=== PATIENT | female | born 1960 | race Caucasian/White ===

== ENCOUNTER 2017-10-14 21:00 | Emergency (ER) | payer MEDICAID ==
[2015-09-11 09:32] VITALS: Ht 170.2 cm; Wt 118.4 kg
[~2017-10-14] VITALS: Ht 170.2 cm; Wt 118.4 kg
[~2017-10-14 21:00] MED LIST: AMOX-559 PO; ASPI-719 PO; AZIT-1 PO; BETA15CR36 TP; BIS5 PO; BLOO-1318 MC; BLOO-1623 MC; BLOO1STR16 MC; CEPH500C24 PO; CETI-169 PO; CIP500 PO; CIPHCO RIGHT EAR; CIPR-214 PO; CITA-156 PO; CPAP; CYCL10TA29 PO; DAR100 PO; DOC100 PO; DOCU-202 PO; ESC10 PO; ESCI10TA8 PO; ESCI20TA8 PO; ESCI5TAB10 PO; FEN145 FT; FEN145 PO; FIO PO; FLU IM; FLU150 PO; FLU45SYR17 IM; FLU45SYR25 IM ONLY; FLU60SYR30 IM ONLY; FLUT50DI3 IH; FUR40 PO; FURO-1 PO; FURO-47 PO; HCTZ; HYDR-4309 PO; IBU800 PO; LANC-636 MC; LEVO50TA86 PO; LOPE1TAB55 PO; LOR5/325 PO; MECL25TA9 PO; METF-410 PO; METH4TAB66 PO; METR70GE2 PV; MULT-820 PO; NEOM28.45 TP; NITR-105 PO; OMEG-11 PO; OMEP-218 PO; ONDA4TAB PO; ONDA4TAB97 PO; OXYC-373 PO; OXYC1TAB54 PO; OXYGENHOME INH; POTA-24 PO; POTA20TA94 PO; POTT20 PO; PRED20TA6 PO; PROP40TA45 PO; SIM20 PO; SIMV-42 PO; SIMV-49 PO; SUMA100T32 PO; SUMA100T33 PO; SUMA25TA26 PO; SUMA25TA27 PO; SUMA50TA PO; TOP100 PO; TRA50 PO; TRAM-627 PO; TRAZ-133 PO; TRAZ-163 PO; TRAZ150T8 PO; TRAZ50 PO; VENL-10 PO; VENL150C61 PO; WAR1 PO; WAR5 PO; WAR75 PO; WARF-18 PO; WARF1TAB63 PO; WARF4TAB54 PO; ZOLP-350 PO; ZOST19404 SQ; [UNRECOGNIZED DRUG - CODE] MC; [UNRECOGNIZED DRUG - CODE] PO; [UNRECOGNIZED DRUG - CODE] PO; [UNRECOGNIZED DRUG - CODE] PO
--- NOTE | 2017-10-14 21:06 | ER Report ---
History and Physical Time Seen By MD: 21:06 HPI/ROS CHIEF COMPLAINT: Persistent cough HISTORY OF PRESENT ILLNESS: 57-year-old female presents ambulatory to the ER with a severe persistent coughing, coughing fits for one week after an illness. She notes the cough is nonproductive. She has no color change or fever. Patient denies history of acid reflux, or asthma. Patient notes a mild shortness of breath. Patient notes some sharp chest pain aggravated by deep inspiration. She's had no hemoptysis. Patient is a type II diabetic. Her sugars have been good. REVIEW OF SYSTEMS: Respiratory: As above Cardiovascular: No chest pain, no palpitations. Gastrointestinal: No vomiting, no abdominal pain. Musculoskeletal: No back pain. Allergies: Coded Allergies: erythromycin base (Verified Allergy, Mild, HIVES, 10/14/17) Erythromycin Ophthalmic Oint latex (Verified Allergy, Mild, 10/14/17) codeine (Verified Adverse Reaction, Mild, CAUSES CHEST PAIN, 10/14/17) Home Meds Active Scripts Benzonatate 100 Mg Cap (TESSALON PERLE 100 MG CAP) 100 Mg Capsule, 100 MG PO TID Y for cough suppression, #20 CAP Prov:RAO ESPINO DO 10/14/17 Metformin Hcl (METFORMIN HCL) 500 Mg Tablet, 1 TAB PO BID, #60 TAB 5 Refills Prov:MICHAEL WELLINGTON PHARMDane 09/24/17 Warfarin Sodium (WARFARIN SODIUM) 5 Mg Tablet, 1 TAB PO QDAY, #30 TAB 5 Refills Take one tablet daily or as instructed based on INR Prov:IRIS LUONG MD 09/20/17 Trazodone Hcl (TRAZODONE HCL) 100 Mg Tablet, 2 TAB PO QHS, #60 TAB 5 Refills Prov:IRIS LUONG MD 08/23/17 Potassium Chloride (POTASSIUM CHLORIDE) 20 Meq Tab.er.prt, 1 TAB PO BID, #60 TAB 5 Refills Prov:AMBREEN PRASAD APRN WEB MARKETING COORDINATOR-C 07/18/17 Escitalopram Oxalate (LEXAPRO) 10 Mg Tab, 3 TAB PO QDAY, #90 TAB 5 Refills Prov:IRIS LUONG MD 06/21/17 Lancets (LANCETS ULTRA THIN) 1 Each Each, EACH MC Q30D, #100 12 Refills Prov:IRIS LUONG MD 05/11/17 Blood-Glucose Meter (BLOOD-GLUCOSE METER) 1 Each Kit, KIT MC ONCE, #1 One touch Ultra Prov:IRIS LUONG MD 05/11/17 Blood Sugar Diagnostic (ONE TOUCH ULTRA TEST STRIPS) 1 Each Strip, 50 EACH MC Q30D, #100 STRIP 12 Refills use to test BS twice daily Prov:IRIS LUONG MD 05/11/17 Simvastatin (SIMVASTATIN) 20 Mg Tablet, 1 TAB PO HS, #30 TAB 12 Refills Prov:IRIS LUONG MD 04/28/17 Sumatriptan Succinate (SUMATRIPTAN SUCCINATE) 100 Mg Tablet, 50-100 MG PO ONCE Y for MIGRAINE, #6 TAB 11 Refills Prov:IRIS LUONG MD 11/11/16 Furosemide (FUROSEMIDE) 40 Mg Tablet, 1 TAB PO DAILY, #30 TAB 11 Refills Prov:IRIS LUNOG MD 11/01/16 Reported Medications Guaifenesin/Dextromethorphan (DIABETIC TUSSIN DM LIQUID) 118 Ml Liquid, 118 ML PO 10/14/17 Cpap (CPAP HOME) Inha, HS 9 cm H2O pressure, with oxygen 3 liters 01/07/16 Oxygen (OXYGEN) Inha, 3 L INH HS with C-PAP 01/07/16 Discontinued Scripts Cetirizine Hcl (CETIRIZINE HCL) 10 Mg Tablet, 1 TAB PO QDAY, #15 TAB 0 Refills Prov:IRIS LUONG MD 12/21/16 Meclizine Hcl (MECLIZINE HCL) 25 Mg Tablet, 1 TAB PO BID Y for dizziness, #30 TAB 5 Refills Prov:IRIS LUONG MD 08/03/16 Omeprazole Magnesium (PRILOSEC OTC) 20 Mg Tablet.dr, 1 TAB PO QDAY, #30 TAB 11 Refills Prov:IRIS LUONG MD 07/28/16 Past Medical/Surgical History Past Medical History Cardiovascular: Reports hx of: DVT edema hyperlipidemia (mixed) hypertension Respiratory: Reports hx of: sleep apnea (obstructive) Gastrointestinal: Reports hx of: constipation, chronic hiatal hernia Psychiatric: Reports hx of: depression Endocrine: Reports hx of: obesity Past Surgical History Gastrointestinal: Reports hx of: cholecystectomy (1980) Gynecologic: Reports hx of: delivery (1980) hysterectomy (2000) Reviewed Nurses Notes: Yes Old Medical Records Reviewed: Yes Hx Smoking: No Smoking Status: Never Smoker Exposure to Second Hand Smoke?: Yes Hx Substance Use Disorder: No Hx Alcohol Use: No Constitutional Physical Exam General Appearance: The patient is alert, has no immediate need for airway protection and no current signs of toxicity. Vital signs stable, afebrile, pulse ox normal HEENT: Pupils equal and round no injection. TMs normal, oropharynx with moderate erythema, no exudate, os nasal drip noted Respiratory: Chest is non tender, lungs are clear to auscultation. Faint expiratory wheezing, no rails Cardiac: regular rate and rhythm Gastrointestinal: Abdomen is soft and non tender, no masses, bowel sounds normal. Musculoskeletal: Neck: Neck is supple and non tender. No lymphadenopathy, no JVD Extremities have full range of motion and are non tender. No edema, no calf tenderness Skin: No rashes or lesions. DIFFERENTIAL DIAGNOSIS: After history and physical exam differential diagnosis was considered for shortness of breath including but not limited to pulmonary infectious process, COPD, asthma, pulmonary embolus and congestive heart failure. Medical Decision Making Data Points Laboratory Hematology Test 10/14/17 03:44 10/14/17 21:52 Urine Color Yellow Urine Clarity Slightly-cloudy Urine pH 5.0 pH (4.8-9.5) Urine Specific [place] S3 Urine Protein Negative mg/dL (NEGATIVE) Urine Glucose (UA) Negative mg/dL (NEGATIVE) Urine Ketones Negative mg/dL (NEGATIVE) Urine Blood Negative (NEGATIVE) Urine Nitrite Negative (NEGATIVE) Urine Bilirubin Negative (NEGATIVE) Urine Urobilinogen 2.0 mg/dL (0.2-1.9) Urine Leukocyte Esterase Trace (NEGATIVE) Urine RBC None /HPF (0-2/HPF) Urine WBC 1 /HPF (0-5/HPF) Urine Squamous Epithelial Cells Many /LPF (</=FEW) Urine Bacteria Few /HPF (NONE-FEW) Urine Mucus None /HPF (NONE-FEW) Red Blood Count 4.82 M/uL (4.17-5.56) Mean Corpuscular Volume 89.8 fL (80.0-96.0) Mean Corpuscular Hemoglobin 30.5 pg (26.0-33.0) Mean Corpuscular Hemoglobin Concent 34.0 g/dL (32.0-36.0) Red Cell Distribution Width 14.7 % (11.5-14.5) Mean Platelet Volume 8.2 fL (7.2-11.1) Neutrophils (%) (Auto) 40.8 % (39.4-72.5) Lymphocytes (%) (Auto) 44.7 % (17.6-49.6) Monocytes (%) (Auto) 10.9 % (4.1-12.4) Eosinophils (%) (Auto) 3.2 % (0.4-6.7) Basophils (%) (Auto) 0.4 % (0.3-1.4) Nucleated RBC Relative Count (auto) 0.0 /100WBC Neutrophils # (Auto) 3.0 K/uL (2.0-7.4) Lymphocytes # (Auto) 3.2 K/uL (1.3-3.6) Monocytes # (Auto) 0.8 K/uL (0.3-1.0) Eosinophils # (Auto) 0.2 K/uL (0.0-0.5) Basophils # (Auto) 0.0 K/uL (0.0-0.1) Nucleated RBC Absolute Count (auto) 0.00 K/uL D-Dimer Quantitative (PE/DVT) 1.70 ug/ml (0-0.50) Sodium Level 138 mmol/L (137-145) Potassium Level 3.3 mmol/L (3.5-5.0) Chloride Level 103 mmol/L (98-107) Carbon Dioxide Level 27 mmol/L (22-31) Blood Urea Nitrogen 17 mg/dl (7-18) Creatinine 0.80 mg/dl (0.52-1.04) Glomerular Filtration Rate Calc > 60.0 Random Glucose 132 mg/dl (75-110) Calcium Level 9.2 mg/dl (8.4-10.2) Total Bilirubin 0.4 mg/dl (0.2-1.3) Aspartate Amino Transf (AST/SGOT) 20 U/L (0-35) Alanine Aminotransferase (ALT/SGPT) 27 U/L (0-56) Alkaline Phosphatase 70 U/L (0-126) Troponin I < 0.012 ng/ml B-Type Natriuretic Peptide 8 pg/ml (0-100) Total Protein 6.9 gm/dl (6.3-8.2) Albumin 3.6 g/dl (3.5-5.0) Chemistry Test 10/14/17 03:44 10/14/17 21:52 Urine Color Yellow Urine Clarity Slightly-cloudy Urine pH 5.0 pH (4.8-9.5) Urine Specific [place] S3 Urine Protein Negative mg/dL (NEGATIVE) Urine Glucose (UA) Negative mg/dL (NEGATIVE) Urine Ketones Negative mg/dL (NEGATIVE) Urine Blood Negative (NEGATIVE) Urine Nitrite Negative (NEGATIVE) Urine Bilirubin Negative (NEGATIVE) Urine Urobilinogen 2.0 mg/dL (0.2-1.9) Urine Leukocyte Esterase Trace (NEGATIVE) Urine RBC None /HPF (0-2/HPF) Urine WBC 1 /HPF (0-5/HPF) Urine Squamous Epithelial Cells Many /LPF (</=FEW) Urine Bacteria Few /HPF (NONE-FEW) Urine Mucus None /HPF (NONE-FEW) White Blood Count 7.2 k/uL (4.5-11.0) Red Blood Count 4.82 M/uL (4.17-5.56) Hemoglobin 14.7 g/dL (12.0-16.0) Hematocrit 43.3 % (34.0-47.0) Mean Corpuscular Volume 89.8 fL (80.0-96.0) Mean Corpuscular Hemoglobin 30.5 pg (26.0-33.0) Mean Corpuscular Hemoglobin Concent 34.0 g/dL (32.0-36.0) Red Cell Distribution Width 14.7 % (11.5-14.5) Platelet Count 185 K/uL (150-450) Mean Platelet Volume 8.2 fL (7.2-11.1) Neutrophils (%) (Auto) 40.8 % (39.4-72.5) Lymphocytes (%) (Auto) 44.7 % (17.6-49.6) Monocytes (%) (Auto) 10.9 % (4.1-12.4) Eosinophils (%) (Auto) 3.2 % (0.4-6.7) Basophils (%) (Auto) 0.4 % (0.3-1.4) Nucleated RBC Relative Count (auto) 0.0 /100WBC Neutrophils # (Auto) 3.0 K/uL (2.0-7.4) Lymphocytes # (Auto) 3.2 K/uL (1.3-3.6) Monocytes # (Auto) 0.8 K/uL (0.3-1.0) Eosinophils # (Auto) 0.2 K/uL (0.0-0.5) Basophils # (Auto) 0.0 K/uL (0.0-0.1) Nucleated RBC Absolute Count (auto) 0.00 K/uL D-Dimer Quantitative (PE/DVT) 1.70 ug/ml (0-0.50) Glomerular Filtration Rate Calc > 60.0 Calcium Level 9.2 mg/dl (8.4-10.2) Total Bilirubin 0.4 mg/dl (0.2-1.3) Aspartate Amino Transf (AST/SGOT) 20 U/L (0-35) Alanine Aminotransferase (ALT/SGPT) 27 U/L (0-56) Alkaline Phosphatase 70 U/L (0-126) Troponin I < 0.012 ng/ml B-Type Natriuretic Peptide 8 pg/ml (0-100) Total Protein 6.9 gm/dl (6.3-8.2) Albumin 3.6 g/dl (3.5-5.0) Coagulation Test 10/14/17 21:52 D-Dimer Quantitative (PE/DVT) 1.70 ug/ml Urinalysis Test 10/14/17 03:44 Urine Color Yellow Urine Clarity Slightly-cloudy Urine pH 5.0 pH (4.8-9.5) Urine Specific [place] S3 Urine Protein Negative mg/dL (NEGATIVE) Urine Glucose (UA) Negative mg/dL (NEGATIVE) Urine Ketones Negative mg/dL (NEGATIVE) Urine Blood Negative (NEGATIVE) Urine Nitrite Negative (NEGATIVE) Urine Bilirubin Negative (NEGATIVE) Urine Urobilinogen 2.0 mg/dL (0.2-1.9) Urine Leukocyte Esterase Trace (NEGATIVE) Urine RBC None /HPF (0-2/HPF) Urine WBC 1 /HPF (0-5/HPF) Urine Squamous Epithelial Cells Many /LPF (</=FEW) Urine Bacteria Few /HPF (NONE-FEW) Urine Mucus None /HPF (NONE-FEW) EKG/Imaging EKG Interpretation 12 lead EK Rhythm: normal sinus rhythm [place]: normal QRS: normal ST segments:, Nonspecific ST and T-wave changes, comparison to previous EKG dated 12/27/15. There is shortening improvement of the QT interval. Otherwise, there is no significant change in morphology Imaging X-ray: Two-view chest x-ray was obtained. I viewed the images myself on the PACS system. My interpretation of the images is: No infiltrate, no effusion, normal mediastinum. The radiologist interpretation had no clinically significant variation from this interpretation. Results: CT scan of the CTA pulmonary angiogram was obtained. The results of the study are CTA CHEST WW/O CNTR (PULM ANG) HISTORY: Cough. Hypoxia. Elevated d-dimer. COMPARISON: Chest x-ray earlier same day. No prior chest CT. TECHNIQUE: Pulmonary embolus protocol - Thin-slice axial imaging of the chest was performed during maximal pulmonary arterial opacification with intravenous nonionic iodinated contrast. 3D coronal slab MIPs and 2D reconstructions in the coronal and sagittal planes were performed to aid in pulmonary embolus detection. E Business Project Manager images have been stored on PACS. One of the following dose optimization techniques was utilized in the performance of this exam: Automated exposure control; adjustment of the mA and/ or kV according to the patient's size; or use of an iterative reconstruction technique. Specific details can be referenced in the facility's radiology CT exam operational policy. CONTRAST: 100 mL of IV Isovue-370. FINDINGS: Pulmonary arteries: There is adequate opacification of the pulmonary arteries to the segmental branches. There are no filling defects in the visible pulmonary arteries. Pulmonary arteries are enlarged. Thoracic inlet: Normal. Aorta: No aneurysm or dissection. There is no atherosclerosis of the aorta. Heart / Pericardium: The heart is normal. There is no ventricular septal deviation. There is no pericardial effusion. There is no coronary artery calcification. Mediastinum / Dawna: Normal mediastinum. No lymphadenopathy. Lungs / Pleura: No pneumothorax. No pleural effusion. The airways are normal. There is mild atelectasis. There is mild respiratory motion artifact. There are small pneumatoceles or bullae in the lower lobes laterally. Upper abdomen: Cholecystectomy. Musculoskeletal/vertebra/body wall: There is severe degenerative disc disease at C6-7. There is mild degenerative disc disease of the thoracic spine. Vertebral body heights are maintained. There is a mild levoscoliosis of the upper thoracic spine and there is a dextroscoliosis of the mid to lower thoracic spine, mild in severity. IMPRESSION: 1. No acute or chronic pulmonary embolism. 2. Mild atelectasis. 3. Degenerative changes of the spine. The study was read by the radiologist. I viewed the images myself on the PACS system. ED Course/Re-evaluation Clinical Indication for ER IV: IV Access ED Course She was admitted to an examination room. H&P was done. The differential diagnoses was considered. Patient isn't sick with a viral URI. Now she has persistent coughing, coughing fits. Had some chest pain and shortness of breath. She has no history of airway disease. She does have sleep apnea. She' s had previous DVT. She is on warfarin. Her INR was last checked approximately 2 weeks ago at 2.1. Patient's had some chest pain.Her chest x- ray is clear. Her EKG is unremarkable. Diagnostic studies show an elevated d- dimer. Patient has lack of findings. She has a chronic cough. Postnasal drip is a likely etiology. Patient has no airway spasm but responded well to nebulizer treatment. She received Solu-Medrol 125 mg IV I spoke with the patient regarding different treatments for chronic cough. I suspect primary causes postnasal drip from her viral URI. Nothing she suffering acid reflux. Do not think there is airway disease, but we will discharge her with an inhaler Decision to Disposition Date: Oct 14, 2017 Decision to Disposition Time: 23:51 Depart Departure Latest Vital Signs Impression: Primary Impression: Persistent cough Additional Impressions: Viral URI with cough Essential hypertension Condition: Improved Disposition: HOME OR SELF-CARE Referrals: IRIS LUONG MD (PCP) New Scripts Benzonatate 100 Mg Cap (TESSALON PERLE 100 MG CAP) 100 Mg Capsule 100 MG PO TID Y for cough suppression, #20 CAP Prov: RAO ESPINO DO 10/14/17 Patient Instructions: Acute Cough (ED), Upper Respiratory Infection (ED) Additional Instructions: Take Benadryl or Zyrtec 10 mg or Claritin 10 mg to dry up your postnasal drip Follow-up with your primary care if unimproved in 3-5 days Problem Qualifiers RAO ESPINO DO Oct 14, 2017 21:06
[2017-10-14] MEDS ORDERED: [UNRECOGNIZED DRUG - CODE] PO (21:09)
[2017-10-14] MEDS ORDERED: ALBUTEROL/IPRATROPIUM 3 ML NEB NEB ONE (21:15)
[2017-10-14] MEDS ORDERED: methylPREDNIS SUCC 125 MG/2ML IVP ONE (21:15)
[2017-10-14 21:58] LABS: PLATELET COUNT, AUTOMATED 185 K/uL (150-450)
--- NOTE | 2017-10-14 22:28 | RADIOLOGY IMAGING REPORT ---
FACILITY: [facility] [place] PATIENT NAME: Ana Lion : 1960 MR: [id number] V: [id number] EXAM DATE: ORDERING PHYSICIAN: RAO ESPINO TECHNOLOGIST: Location: [facility] Patient: Ana Lion : 1960 Visit/Account:[id number] Date of Sevice: 10/14/2017 EXAMINATION: PA and Lateral Chest 10/14/2017 9:14 PM HISTORY: RESP DISTRESS COMPARISON: Chest x-ray with rib series 02/25/2016, chest x-ray 12/31/2015 FINDINGS: Cardiomediastinal contours: Normal Lungs and pleura: Bronchitic and interstitial markings are slightly prominent but unchanged. No acute infiltrate or consolidation. Pleural spaces are clear. Bones/soft tissues: Stable scoliotic spinal curvature. Right upper quadrant cholecystectomy clips. IMPRESSION: No acute cardiopulmonary abnormality. I am having the [facility]'s call the absence of acute findings to RAO ESPINO for me at 10/14/2017 10:24 PM Report Dictated By: Marlon Solo MD at 10/14/2017 10:21 PM Report E-Signed By: Marlon Solo MD at 10/14/2017 10:25 PM WSN:[id number]
--- NOTE | 2017-10-14 23:08 | EKG ---
FACILITY: [facility] PATIENT NAME: MIRYAM EASON : [id number] MR: [id number] V: [id number] EXAM DATE: ORDERING PHYSICIAN: RAO ESPINO TECHNOLOGIST: TELLO Test Reason : DYSPNEA Blood Pressure : / mmHG Vent. Rate : 064 BPM Atrial Rate : 064 BPM P-R Int : 152 ms QRS Dur : 084 ms QT Int : 450 ms P-R-T Axes : 047 079 -84 degrees QTc Int : 464 ms Normal sinus rhythm ST depression, consider subendocardial injury Prolonged QT Abnormal ECG When compared with ECG of 24-DEC-2015 23:39, ST now depressed in Anterior leads Nonspecific T wave abnormality, worse in Anterolateral leads Confirmed by ASHLEY ROGEL ([id number]) on 10/15/2017 6:33:09 AM Referred By: Confirmed By:ASHLEY ROGEL
--- NOTE | 2017-10-14 23:44 | RADIOLOGY IMAGING REPORT ---
FACILITY: PATIENT NAME: Ana Lion : 1960 MR: [id number] V: [id number] EXAM DATE: ORDERING PHYSICIAN: RAO ESPINO TECHNOLOGIST: Location: [facility] [place] Patient: Ana Lion : 1960 Visit/Account:[id number] Date of Sevice: 10/14/2017 CTA CHEST WW/O CNTR (PULM ANG) HISTORY: Cough. Hypoxia. Elevated d-dimer. COMPARISON: Chest x-ray earlier same day. No prior chest CT. TECHNIQUE: Pulmonary embolus protocol - Thin-slice axial imaging of the chest was performed during ma ximal pulmonary arterial opacification with intravenous nonionic iodinated contrast. 3D coronal slab MIPs and 2D reconstructions in the coronal and sagittal planes were performed to aid in pulmonary emb olus detection. Ground Service Equipment Mechanic images have been stored on PACS. One of the following dose optimization techniques was utilized in the performance of this exam: Autom ated exposure control; adjustment of the mA and/or kV according to the patient's size; or use of an i terative reconstruction technique. Specific details can be referenced in the facility's radiology CT exam operational policy. CONTRAST: 100 mL of IV Isovue-370. FINDINGS: Pulmonary arteries: There is adequate opacification of the pulmonary arteries to the segmental branch es. There are no filling defects in the visible pulmonary arteries. Pulmonary arteries are enlarged. Thoracic inlet: Normal. Aorta: No aneurysm or dissection. There is no atherosclerosis of the aorta. Heart / Pericardium: The heart is normal. There is no ventricular septal deviation. There is no peric ardial effusion. There is no coronary artery calcification. Mediastinum / Dawna: Normal mediastinum. No lymphadenopathy. Lungs / Pleura: No pneumothorax. No pleural effusion. The airways are normal. There is mild atelectas is. There is mild respiratory motion artifact. There are small pneumatoceles or bullae in the lower l obes laterally. Upper abdomen: Cholecystectomy. Musculoskeletal/vertebra/body wall: There is severe degenerative disc disease at C6-7. There is mild degenerative disc disease of the thoracic spine. Vertebral body heights are maintained. There is a mi ld levoscoliosis of the upper thoracic spine and there is a dextroscoliosis of the mid to lower thora cic spine, mild in severity. IMPRESSION: 1. No acute or chronic pulmonary embolism. 2. Mild atelectasis. 3. Degenerative changes of the spine. Report Dictated By: Lidia Moore at 10/14/2017 11:30 PM Report E-Signed By: Lidia Moore at 10/14/2017 11:41 PM WSN:[id number]
[2017-10-14] MEDS ORDERED: BENZ100C4 PO (23:53)
[2017-10-14] MEDS ORDERED: ALBUTEROL SULFATE 90 MCG/ACT 8.5 GM HNH INH PRN (23:55)
[2017-10-15 00:07] VITALS: BP 138/88
== END 2017-10-15 00:11 | disposition home or self-care (01) ==
LOC: ER 21:07
DX: J06.9 Acute upper respiratory infection, unspecified (principal); I10 Essential (primary) hypertension
CPT/HCPCS: 71046; 71275; 81001; 83880; 84484; 85025; 85379; 93005; 94640; 96374; 99284; J2930; J7050; J7620; Q9967; 82040; 82247; 82310; 82374; 82435; 82565; 82947; 84075; 84132; 84155; 84295; 84450; 84460; 84520

== ENCOUNTER → 2017-12-21 | Outpatient (CLI) | payer MEDICAID ==
[2015-09-11 09:32] VITALS: BMI 42.1
[~2017-12-21] MED LIST changes: +BENZ100C26 PO; +BENZ100C4 PO; +METF10002 PO; -WARF-18 PO; +WARF1TAB15 PO; -WARF1TAB63 PO; +WARF5TAB23 PO; +[UNRECOGNIZED DRUG - CODE] PO
[2017-12-21 08:45] LABS: LDL CHOLESTEROL 38 mg/dl
== END ==
LOC: LAB 07:44
PROVIDERS: ATTEND Internal Medicine
DX: E11.9 Type 2 diabetes mellitus without complications (principal); I10 Essential (primary) hypertension; E78.2 Mixed hyperlipidemia
CPT/HCPCS: 36415; 82040; 82247; 82310; 82374; 82435; 82465; 82565; 82947; 83036; 83718; 84075; 84132; 84155; 84295; 84450; 84460; 84478; 84520

== ENCOUNTER → 2018-01-09 | Outpatient (CLI) | payer MEDICAID ==
[2015-09-11 09:32] VITALS: BMI 42.1
== END ==
LOC: LAB 09:35
PROVIDERS: ATTEND Pharmacist Pharmacotherapy
DX: R53.81 Other malaise (principal); R68.89 Other general symptoms and signs; L65.9 Nonscarring hair loss, unspecified
CPT/HCPCS: 36415; 84439; 84443

== ENCOUNTER 2018-02-02 18:42 | Emergency (ER) | payer MEDICAID ==
[2015-09-11 09:32] VITALS: Wt 116.1 kg
[~2018-02-02 18:42] MED LIST changes: +WARF4TAB15 PO; -WARF4TAB54 PO
--- NOTE | 2018-02-02 18:59 | ER Report ---
History and Physical Time Seen By MD: 18:45 Hx. of Stated Complaint: pt reports sob last night and some twinges of cardiac pain HPI/ROS CHIEF COMPLAINT: Shortness of breath HISTORY OF PRESENT ILLNESS: Patient is a 57-year-old female who presents the ED with complaint of intermittent shortness of breath since last night. She states that this seemed worse about 2 hours ago. She did have an episode of left-sided chest pain lasting only a few seconds about an hour ago. She states that she was just sitting down when this happened. She describes the pain as sharp. She is feeling much improved now. She states the shortness of breath last night was resolved by going on her CPAP machine. Patient states that she has a history of a DVT and a stroke and since then has been placed on Coumadin. She states her last INR was 1-2 weeks ago and was at 2.2. She denies any nausea or vomiting. She does not note any palpitations. She denies any history of lung or heart issues. She states that she has been having a cough for the past to 3 weeks. She has not noted any fever with this. REVIEW OF SYSTEMS: Constitutional: No fever, no chills. Eyes: No discharge. ENT: No sore throat. Cardiovascular: See history of present illness. No palpitations. Respiratory: History of present illness. Gastrointestinal: No abdominal pain, no vomiting. Genitourinary: No hematuria. Musculoskeletal: No back pain. Skin: No rashes. Neurological: No headache. Allergies: Coded Allergies: erythromycin base (Verified Allergy, Mild, HIVES, 10/14/17) Erythromycin Ophthalmic Oint latex (Verified Allergy, Mild, 10/14/17) codeine (Verified Adverse Reaction, Mild, CAUSES CHEST PAIN, 10/14/17) Home Meds Active Scripts Potassium Chloride (POTASSIUM CHLORIDE) 20 Meq Tab.er.prt, 1 TAB PO BID, #60 TAB 5 Refills Prov:AMBREEN PRASAD APRN [employer] 01/23/18 Sumatriptan Succinate (SUMATRIPTAN SUCCINATE) 100 Mg Tablet, 0.5-1 TAB PO ONCE Y for MIGRAINE, #6 TAB 11 Refills Prov:IRIS LUONG MD 01/12/18 Escitalopram Oxalate (LEXAPRO) 10 Mg Tab, 3 TAB PO QDAY, #90 TAB 5 Refills Prov:IRIS LUONG MD 12/22/17 Furosemide (FUROSEMIDE) 40 Mg Tablet, 1 TAB PO DAILY, #30 TAB 11 Refills Prov:IRIS LUONG MD 11/09/17 Metformin Hcl (METFORMIN HCL ER) 1,000 Mg Tab.er.24, 1 TAB PO BID for 30 Days, # 60 TAB 11 Refills Prov:MICHAEL WELLINGTON PHARMD 11/02/17 Warfarin Sodium (WARFARIN SODIUM) 5 Mg Tablet, 1 TAB PO QDAY, #30 TAB 5 Refills Take one tablet daily or as instructed based on INR Prov:IRIS LUONG MD 09/20/17 Trazodone Hcl (TRAZODONE HCL) 100 Mg Tablet, 2 TAB PO QHS, #60 TAB 5 Refills Prov:IRIS LUONG MD 08/23/17 Lancets (LANCETS ULTRA THIN) 1 Each Each, EACH MC Q30D, #100 12 Refills Prov:IRIS LUONG MD 05/11/17 Blood-Glucose Meter (BLOOD-GLUCOSE METER) 1 Each Kit, KIT MC ONCE, #1 One touch Ultra Prov:IRIS LUONG MD 05/11/17 Blood Sugar Diagnostic (ONE TOUCH ULTRA TEST STRIPS) 1 Each Strip, 50 EACH MC Q30D, #100 STRIP 12 Refills use to test BS twice daily Prov:IRIS LUONG MD 05/11/17 Simvastatin (SIMVASTATIN) 20 Mg Tablet, 1 TAB PO HS, #30 TAB 12 Refills Prov:IRIS LUONG MD 04/28/17 Reported Medications Cpap (CPAP HOME) Inha, HS 9 cm H2O pressure, with oxygen 3 liters 01/07/16 Discontinued Reported Medications Oxygen (OXYGEN) Inha, 2 L INH HS with C-PAP 01/07/16 Reviewed Nurses Notes: Yes Old Medical Records Reviewed: Yes Hx Smoking: No Smoking Status: Never Smoker Exposure to Second Hand Smoke?: Yes Hx Substance Use Disorder: No Hx Alcohol Use: No Constitutional Vital Sign - Last 24 Hours 02/02/18 02/02/18 02/02/18 02/02/18 18:44 18:51 18:57 19:00 Temp 97.5 Pulse 74 69 Resp 16 18 B/P (MAP) 131/86 (101) 131/86 121/92 (102) Pulse Ox 93 95 O2 Delivery Room Air 02/02/18 02/02/18 02/02/18 02/02/18 19:09 19:27 19:30 19:42 Pulse 71 68 Resp 22 23 B/P (MAP) 122/78 (93) Pulse Ox 92 93 O2 Flow Rate 1.0 Physical Exam General Appearance: The patient is alert, has no immediate need for airway protection and no signs of toxicity. Patient appears be in no acute distress. Eyes: Pupils equal and round no pallor or injection. ENT, Mouth: Mucous membranes are moist. Respiratory: There are no retractions, lungs are clear to auscultation. Cardiovascular: Regular rate and rhythm. Gastrointestinal: Abdomen is soft and non tender, no masses, bowel sounds normal. Neurological: Cranial nerves II through XII intact. Skin: Warm and dry, no rashes. Musculoskeletal: Neck is supple non tender. Extremities are nontender, nonswollen and have full range of motion. DIFFERENTIAL DIAGNOSIS: After history and physical exam differential diagnosis was considered for shortness of breath including but not limited to pulmonary infectious process, COPD, asthma, pulmonary embolus and congestive heart failure. Medical Decision Making Data Points Result Diagram: 02/02/18185402/02/[id number] Laboratory Hematology Test 02/02/18 18:55 02/02/18 19:22 Red Blood Count 5.05 M/uL (4.17-5.56) Mean Corpuscular Volume 89.5 fL (80.0-96.0) Mean Corpuscular Hemoglobin 30.5 pg (26.0-33.0) Mean Corpuscular Hemoglobin Concent 34.1 g/dL (32.0-36.0) Red Cell Distribution Width 14.3 % (11.5-14.5) Mean Platelet Volume 8.4 fL (7.2-11.1) Neutrophils (%) (Auto) 53.5 % (39.4-72.5) Lymphocytes (%) (Auto) 32.6 % (17.6-49.6) Monocytes (%) (Auto) 8.5 % (4.1-12.4) Eosinophils (%) (Auto) 4.8 % (0.4-6.7) Basophils (%) (Auto) 0.6 % (0.3-1.4) Nucleated RBC Relative Count (auto) 0.0 /100WBC Neutrophils # (Auto) 4.4 K/uL (2.0-7.4) Lymphocytes # (Auto) 2.7 K/uL (1.3-3.6) Monocytes # (Auto) 0.7 K/uL (0.3-1.0) Eosinophils # (Auto) 0.4 K/uL (0.0-0.5) Basophils # (Auto) 0.0 K/uL (0.0-0.1) Nucleated RBC Absolute Count (auto) 0.00 K/uL Sodium Level 141 mmol/L (137-145) Potassium Level 3.6 mmol/L (3.5-5.0) Chloride Level 101 mmol/L (98-107) Carbon Dioxide Level 25 mmol/L (22-31) Blood Urea Nitrogen 17 mg/dl (7-18) Creatinine 1.20 mg/dl (0.52-1.04) Glomerular Filtration Rate Calc 46.3 Random Glucose 97 mg/dl (75-110) Calcium Level 9.7 mg/dl (8.4-10.2) Total Bilirubin 0.4 mg/dl (0.2-1.3) Aspartate Amino Transf (AST/SGOT) 24 U/L (0-35) Alanine Aminotransferase (ALT/SGPT) 22 U/L (0-56) Alkaline Phosphatase 55 U/L (0-126) Troponin I < 0.012 ng/ml B-Type Natriuretic Peptide 6 pg/ml (0-100) Total Protein 7.2 gm/dl (6.3-8.2) Albumin 4.0 g/dl (3.5-5.0) Prothrombin Time 30.6 seconds (12.0-14.4) Prothromb Time International Ratio 2.81 Activated Partial Thromboplast Time 37 seconds (23-35) Chemistry Test 02/02/18 18:55 02/02/18 19:22 White Blood Count 8.2 k/uL (4.5-11.0) Red Blood Count 5.05 M/uL (4.17-5.56) Hemoglobin 15.4 g/dL (12.0-16.0) Hematocrit 45.2 % (34.0-47.0) Mean Corpuscular Volume 89.5 fL (80.0-96.0) Mean Corpuscular Hemoglobin 30.5 pg (26.0-33.0) Mean Corpuscular Hemoglobin Concent 34.1 g/dL (32.0-36.0) Red Cell Distribution Width 14.3 % (11.5-14.5) Platelet Count 207 K/uL (150-450) Mean Platelet Volume 8.4 fL (7.2-11.1) Neutrophils (%) (Auto) 53.5 % (39.4-72.5) Lymphocytes (%) (Auto) 32.6 % (17.6-49.6) Monocytes (%) (Auto) 8.5 % (4.1-12.4) Eosinophils (%) (Auto) 4.8 % (0.4-6.7) Basophils (%) (Auto) 0.6 % (0.3-1.4) Nucleated RBC Relative Count (auto) 0.0 /100WBC Neutrophils # (Auto) 4.4 K/uL (2.0-7.4) Lymphocytes # (Auto) 2.7 K/uL (1.3-3.6) Monocytes # (Auto) 0.7 K/uL (0.3-1.0) Eosinophils # (Auto) 0.4 K/uL (0.0-0.5) Basophils # (Auto) 0.0 K/uL (0.0-0.1) Nucleated RBC Absolute Count (auto) 0.00 K/uL Glomerular Filtration Rate Calc 46.3 Calcium Level 9.7 mg/dl (8.4-10.2) Total Bilirubin 0.4 mg/dl (0.2-1.3) Aspartate Amino Transf (AST/SGOT) 24 U/L (0-35) Alanine Aminotransferase (ALT/SGPT) 22 U/L (0-56) Alkaline Phosphatase 55 U/L (0-126) Troponin I < 0.012 ng/ml B-Type Natriuretic Peptide 6 pg/ml (0-100) Total Protein 7.2 gm/dl (6.3-8.2) Albumin 4.0 g/dl (3.5-5.0) Prothrombin Time 30.6 seconds (12.0-14.4) Prothromb Time International Ratio 2.81 Activated Partial Thromboplast Time 37 seconds (23-35) Coagulation Test 02/02/18 19:22 Prothrombin Time 30.6 seconds Prothromb Time International Ratio 2.81 Activated Partial Thromboplast Time 37 seconds EKG/Imaging EKG Interpretation 12 lead EKG: Rhythm: Normal sinus rhythm, rate 69 bpm [place]: normal QRS: normal ST segments: No acute ST changes identified. There is some slight early repolarization in V1 through V6. Monitor Interpretation: Normal Sinus Rhythm Imaging CXR: IMPRESSION: Unchanged chest with no evidence of acute cardiopulmonary disease. Report Dictated By: Deo Smith MD at 02/02/2018 7:25 PM Report E-Signed By: Deo Smith MD at 02/02/2018 7:27 PM ED Course/Re-evaluation ED Course Will obtain labs, chest x-ray, EKG. 02/02/2018 7:47:53 pm - discussed all labs, chest x-ray, EKG with patient. Everything is a essentially normal. She has not had any hypoxia here. She has a normal exam and her INR is 2.8. She has been feeling improved and no longer has been noticing shortness of breath while she has been here. This may have been related to her upper respiratory infection which is likely viral. Decision to Disposition Date: February 02, 2018 Decision to Disposition Time: 19:48 Depart Departure Latest Vital Signs Vital Signs Date Time Temp Pulse Resp B/P (MAP) Pulse Ox O2 Delivery O2 Flow Rate FiO2 02/02/18 19:42 68 23 93 02/02/18 19:30 122/78 (93) 02/02/18 19:09 1.0 02/02/18 18:51 97.5 Room Air Impression: Primary Impression: Upper respiratory infection Additional Impression: Shortness of breath Condition: Improved Disposition: HOME OR SELF-CARE Referrals: IRIS LUONG MD (PCP) Patient Instructions: Dyspnea (ED), Upper Respiratory Infection (ED) Additional Instructions: Stay well-hydrated. Follow-up with primary care provider in 2-3 days. If having any worsening or concerning symptoms may return to the emergency department. Problem Qualifiers Primary Impression: Upper respiratory infection URI type: unspecified viral URI Qualified Codes: J06.9 - Acute upper respiratory infection, unspecified LILLY GARCIA PA-C February 02, 2018 18:59
[2018-02-02 19:08] LABS: PLATELET COUNT, AUTOMATED 207 K/uL (150-450)
--- NOTE | 2018-02-02 19:31 | RADIOLOGY IMAGING REPORT ---
FACILITY: [facility] - [place] PATIENT NAME: Ana Lion : 1960 MR: [id number] V: [id number] EXAM DATE: ORDERING PHYSICIAN: LILLY GARCIA TECHNOLOGIST: Location: [facility] - [place] Patient: Ana Lion : 1960 Visit/Account:[id number] Date of Sevice: 02/02/2018 Examination: CHEST PA AND LAT Comparison: 10/14/2017 and earlier. History: Chest pain and shortness of breath since yesterday. Findings: Cardiac and hilar contour size is within normal limits. No new or enlarging consolidation o r nodule. No acute peribronchial inflammation. No pneumothorax, edema, or effusion. Thoracic scoliosi s as before. IMPRESSION: Unchanged chest with no evidence of acute cardiopulmonary disease. Report Dictated By: Deo Smith MD at 02/02/2018 7:25 PM Report E-Signed By: Deo Smith MD at 02/02/2018 7:27 PM [id number]
[2018-02-02 19:36] LABS: INR 2.81
[2018-02-02 19:55] VITALS: BP 104/66
--- NOTE | 2018-02-02 20:56 | EKG ---
FACILITY: [facility] PATIENT NAME: MIRYAM EASON : [id number] MR: [id number] V: [id number] EXAM DATE: ORDERING PHYSICIAN: LILLY GARCIA TECHNOLOGIST: TELLO Test Reason : DYSPNEA Blood Pressure : / mmHG Vent. Rate : 069 BPM Atrial Rate : 069 BPM P-R Int : 140 ms QRS Dur : 082 ms QT Int : 382 ms P-R-T Axes : 003 -21 153 degrees QTc Int : 409 ms Sinus rhythm Left axis deviation Probable left ventricular hypertrophy Possible previous inferior infarct Diffuse ST-T findings concerning for ischemia Abnormal ECG No previous ECGs available Confirmed by PEBBLES KERR ([id number]) on 02/03/2018 6:16:22 AM Referred By: Confirmed By:PEBBLES KERR
== END 2018-02-02 20:02 | disposition home or self-care (01) ==
LOC: ER 19:01
DX: J06.9 Acute upper respiratory infection, unspecified (principal); R06.02 Shortness of breath
CPT/HCPCS: 36415; 71046; 82040; 82247; 82310; 82374; 82435; 82565; 82947; 83880; 84075; 84132; 84155; 84295; 84450; 84460; 84484; 84520; 85025; 85610; 85730; 93005; 99284

== ENCOUNTER → 2018-03-13 | Outpatient (CLI) | payer MEDICAID ==
[2015-09-11 09:32] VITALS: BMI 42.1
[~2018-03-13] MED LIST changes: +ALB18R INH; +BENZ200C15 PO; +DOXY-179 PO; +GOLYTE PO; +IPRA3AMP21 IH; -METF-410 PO; +METF-411 PO
== END ==
LOC: MAMO 00:37
PROVIDERS: ATTEND Internal Medicine
DX: Z02.9 Encounter for administrative examinations, unspecified (principal)

== ENCOUNTER 2018-03-17 18:59 | Emergency (ER) | payer MEDICAID ==
[2015-09-11 09:32] VITALS: Wt 110.7 kg
[2018-03-17] MEDS ORDERED: DIPHTH/TETANUS/ACEL. PERTUSSIS IM ONLY ONE (19:25)
--- NOTE | 2018-03-17 19:27 | ER Report ---
History and Physical Time Seen By MD: 19:17 Hx. of Stated Complaint: PATIENT CUT HER FINGER WHILST SLICING AN AVACADO FOR HER SALAD HPI/ROS CHIEF COMPLAINT: Laceration HISTORY OF PRESENT ILLNESS: This is a 57-year-old female who presents to the emergency department for a laceration to her left middle finger. Patient states she was cutting an avocado just prior to arrival when the knife slipped and she lacerated the base of the left middle finger. Bleeding is controlled. Patient has no other complaints at this time, or nausea or vomiting. No numbness or tingling. Allergies: Coded Allergies: erythromycin base (Verified Allergy, Mild, HIVES, 10/14/17) Erythromycin Ophthalmic Oint latex (Verified Allergy, Mild, 10/14/17) codeine (Verified Adverse Reaction, Mild, CAUSES CHEST PAIN, 10/14/17) Home Meds Active Scripts Trazodone Hcl (TRAZODONE HCL) 100 Mg Tablet, 2 TAB PO QHS, #60 TAB 5 Refills Prov:IRIS LUONG MD 03/11/18 Peg/Electrolytes (GOLYTELY SOLUTION) 4,000 Ml Soln, 1 GAL PO ONCE, #1 GAL 0 Refills Prov:ASHLEY LOPEZ MD 03/07/18 Doxycycline Hyclate (DOXYCYCLINE HYCLATE) 100 Mg Tablet, 1 TAB PO BID, #14 TAB 0 Refills Prov:IRIS LUONG MD 02/16/18 Albuterol Sulfate (VENTOLIN HFA) 18 Gm Inh, 2 PUFF INH Q4-6H Y for shortness of breath, #1 INH 1 Refill Prov:IRIS LUONG MD 02/16/18 Benzonatate (BENZONATATE) 200 Mg Capsule, 1 CAP PO TID Y for cough, #15 CAP 1 Refill Prov:IRIS LUONG MD 02/16/18 Potassium Chloride (POTASSIUM CHLORIDE) 20 Meq Tab.er.prt, 1 TAB PO BID, #60 TAB 5 Refills Prov:AMBREEN PRASAD APRN MACHINE [employer]ING WORKER-C 01/23/18 Sumatriptan Succinate (SUMATRIPTAN SUCCINATE) 100 Mg Tablet, 0.5-1 TAB PO ONCE Y for MIGRAINE, #6 TAB 11 Refills Prov:IRIS LUONG MD 01/12/18 Escitalopram Oxalate (LEXAPRO) 10 Mg Tab, 3 TAB PO QDAY, #90 TAB 5 Refills Prov:IRIS LUONG MD 12/22/17 Furosemide (FUROSEMIDE) 40 Mg Tablet, 1 TAB PO DAILY, #30 TAB 11 Refills Prov:IRIS LUONG MD 11/09/17 Metformin Hcl (METFORMIN HCL ER) 1,000 Mg Tab.er.24, 1 TAB PO BID for 30 Days, # 60 TAB 11 Refills Prov:MICHAEL WELLINGTON PHARMD 11/02/17 Warfarin Sodium (WARFARIN SODIUM) 5 Mg Tablet, 1 TAB PO QDAY, #30 TAB 5 Refills Take one tablet daily or as instructed based on INR Prov:IRIS LUONG MD 09/20/17 Lancets (LANCETS ULTRA THIN) 1 Each Each, EACH MC Q30D, #100 12 Refills Prov:IRIS LUONG MD 05/11/17 Blood-Glucose Meter (BLOOD-GLUCOSE METER) 1 Each Kit, KIT MC ONCE, #1 One touch Ultra Prov:IRIS LUONG MD 05/11/17 Blood Sugar Diagnostic (ONE TOUCH ULTRA TEST STRIPS) 1 Each Strip, 50 EACH MC Q30D, #100 STRIP 12 Refills use to test BS twice daily Prov:IRIS LUONG MD 05/11/17 Simvastatin (SIMVASTATIN) 20 Mg Tablet, 1 TAB PO HS, #30 TAB 12 Refills Prov:IRIS LUONG MD 04/28/17 Reported Medications Cpap (CPAP HOME) Inha, HS 9 cm H2O pressure, with oxygen 3 liters 01/07/16 Past Medical/Surgical History Patient has a past medical and surgical history of 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 Reviewed Nurses Notes: Yes Hx Smoking: No Smoking Status: Never Smoker Exposure to Second Hand Smoke?: Yes Hx Substance Use Disorder: No Hx Alcohol Use: No Constitutional Vital Sign - Last 24 Hours 03/17/18 03/17/18 19:03 20:06 Temp 97.6 Pulse 76 85 Resp 16 B/P (MAP) 141/80 142/88 (106) Pulse Ox 91 95 O2 Delivery Room Air Room Air Physical Exam General appearance: Alert no distress. Respiratory: Chest is non tender, lungs are clear to auscultation. Cardiac: Regular rate and rhythm. Integument: 2.5 cm laceration to the base of the left middle finger, near the webspace. DIFFERENTIAL DIAGNOSIS: After history and physical exam differential diagnosis was considered for laceration. Medical Decision Making ED Course/Re-evaluation ED Course The patient was admitted to room. A history and physical were obtained. The 2.5 cm laceration was repaired as noted below. Patient tolerated well. The patient' s tetanus was updated. Patient was instructed to follow up with primary care provider or return to the emergency department in 7 days to have the sutures removed. Patient was instructed to keep the wound clean and dry monitor for signs of infection return sooner if needed. Patient had no other questions or concerns at this time and discharged home. Procedure: Laceration repair. Verbal consent was obtained from the patient. The 2.5 cm laceration on the base of the left middle finger at the webspace was anesthetized using a digital block. The wound was scrubbed, draped and explored to its base with a gloved finger. There were no deep structures involved. No tendon injury was identified. The wound was repaired with 7-simple interrupted sutures using 5-0 Prolene. The wound repair was simple. The procedure was performed by myself. Decision to Disposition Date: Mar 17, 2018 Decision to Disposition Time: 20:05 Depart Departure Latest Vital Signs Vital Signs Date Time Temp Pulse Resp B/P (MAP) Pulse Ox O2 Delivery O2 Flow Rate FiO2 03/17/18 20:06 85 16 142/88 (106) 95 Room Air 03/17/18 19:03 97.6 Impression: Primary Impression: Finger laceration Condition: Improved Disposition: HOME OR SELF-CARE Referrals: IRIS LUONG MD (PCP) Patient Instructions: Acute Wound Care (ED), Finger Laceration (ED) Additional Instructions: Drink plenty of water. Get plenty of rest. Monitor for signs of infection such as redness, drainage or red streaks going up the arm. Return to the emergency department or follow-up with your primary care provider in 7 days to have his sutures removed. Keep the wound clean and dry for the next 48 hours. After 48 hours the wound covered with a Band-Aid continue to keep it clean. Return to the emergency department for any other concerns worsening symptoms. Problem Qualifiers Primary Impression: Finger laceration Encounter type: initial encounter Finger: middle finger Damage to nail status: without damage Foreign body presence: without foreign body Laterality: left Qualified Codes: S61.213A - Laceration without foreign body of left middle finger without damage to nail, initial encounter SAMARIA ORANTES-NAEL Mar 17, 2018 19:27
[2018-03-17 20:06] VITALS: BP 142/88
== END 2018-03-17 20:14 | disposition home or self-care (01) ==
LOC: ER 19:08
DX: S61.213A Laceration without foreign body of left middle finger without damage to nail, initial encounter (principal); W26.0XXA Contact with knife, initial encounter; Y93.G3 Activity, cooking and baking
CPT/HCPCS: 90471; 90715; 99283

== ENCOUNTER 2018-03-26 11:07 | Emergency (ER) | payer MEDICAID ==
[2015-09-11 09:32] VITALS: Wt 110.7 kg
[2018-03-26 11:24] VITALS: BP 124/74
--- NOTE | 2018-03-26 11:25 | ER Report ---
History and Physical Time Seen By MD: 11:12 HPI/ROS CHIEF COMPLAINT: Suture removal HISTORY OF PRESENT ILLNESS: This is a 57-year-old female who returns to the emergency Department for a suture removal. Patient has sutures placed approximately 7 days ago, have the sutures removed 2 days ago, patient was instructed to return today. Wound is pink and dry. No signs of infection. Only 2 sutures left removed. No fevers, aches, chills. Allergies: Coded Allergies: erythromycin base (Verified Allergy, Mild, HIVES, 10/14/17) Erythromycin Ophthalmic Oint latex (Verified Allergy, Mild, 10/14/17) codeine (Verified Adverse Reaction, Mild, CAUSES CHEST PAIN, 10/14/17) Home Meds Active Scripts Trazodone Hcl (TRAZODONE HCL) 100 Mg Tablet, 2 TAB PO QHS, #60 TAB 5 Refills Prov:IRIS LUONG MD 03/11/18 Peg/Electrolytes (GOLYTELY SOLUTION) 4,000 Ml Soln, 1 GAL PO ONCE, #1 GAL 0 Refills Prov:ASHLEY LOPEZ MD 03/07/18 Doxycycline Hyclate (DOXYCYCLINE HYCLATE) 100 Mg Tablet, 1 TAB PO BID, #14 TAB 0 Refills Prov:IRIS LUONG MD 02/16/18 Albuterol Sulfate (VENTOLIN HFA) 18 Gm Inh, 2 PUFF INH Q4-6H Y for shortness of breath, #1 INH 1 Refill Prov:IRIS LUONG MD 02/16/18 Benzonatate (BENZONATATE) 200 Mg Capsule, 1 CAP PO TID Y for cough, #15 CAP 1 Refill Prov:IRIS LUONG MD 02/16/18 Potassium Chloride (POTASSIUM CHLORIDE) 20 Meq Tab.er.prt, 1 TAB PO BID, #60 TAB 5 Refills Prov:AMBREEN PRASAD APRN [employer] WORKER-C 01/23/18 Sumatriptan Succinate (SUMATRIPTAN SUCCINATE) 100 Mg Tablet, 0.5-1 TAB PO ONCE Y for MIGRAINE, #6 TAB 11 Refills Prov:IRIS LUONG MD 01/12/18 Escitalopram Oxalate (LEXAPRO) 10 Mg Tab, 3 TAB PO QDAY, #90 TAB 5 Refills Prov:IRIS LUONG MD 12/22/17 Furosemide (FUROSEMIDE) 40 Mg Tablet, 1 TAB PO DAILY, #30 TAB 11 Refills Prov:IRIS LUONG MD 11/09/17 Metformin Hcl (METFORMIN HCL ER) 1,000 Mg Tab.er.24, 1 TAB PO BID for 30 Days, # 60 TAB 11 Refills Prov:MICHAEL WELLINGTON PHARMD 11/02/17 Warfarin Sodium (WARFARIN SODIUM) 5 Mg Tablet, 1 TAB PO QDAY, #30 TAB 5 Refills Take one tablet daily or as instructed based on INR Prov:IRIS LUONG MD 09/20/17 Lancets (LANCETS ULTRA THIN) 1 Each Each, EACH MC Q30D, #100 12 Refills Prov:IRIS LUONG MD 05/11/17 Blood-Glucose Meter (BLOOD-GLUCOSE METER) 1 Each Kit, KIT MC ONCE, #1 One touch Ultra Prov:IRIS LUONG MD 05/11/17 Blood Sugar Diagnostic (ONE TOUCH ULTRA TEST STRIPS) 1 Each Strip, 50 EACH MC Q30D, #100 STRIP 12 Refills use to test BS twice daily Prov:IRIS LUONG MD 05/11/17 Simvastatin (SIMVASTATIN) 20 Mg Tablet, 1 TAB PO HS, #30 TAB 12 Refills Prov:IRIS LUONG MD 04/28/17 Reported Medications Cpap (CPAP HOME) Inha, HS 9 cm H2O pressure, with oxygen 3 liters 01/07/16 Past Medical/Surgical History Patient has a past medical and surgical history of 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 Reviewed Nurses Notes: Yes Hx Smoking: No Smoking Status: Never Smoker Exposure to Second Hand Smoke?: Yes Hx Substance Use Disorder: No Hx Alcohol Use: No Physical Exam General appearance: Alert no distress. Respiratory: Chest is non tender, lungs are clear to auscultation. Cardiac: Regular rate and rhythm. Integumentary: Base of the left middle finger on the index finger side, skin is warm, dry, clean laceration well approximated. No signs of infection. DIFFERENTIAL DIAGNOSIS: After history and physical exam differential diagnosis was considered for suture removal. Medical Decision Making ED Course/Re-evaluation ED Course The patient was minutes roomed. A history and physical were obtained. 2 sutures were removed, 4 sutures were removed of this past week. The wound looks good, no infection. She was instructed to continue to monitor for signs of redness, swelling, drainage return to the ER or follow-up with primary care provider. Patient was in agreement with this plan of care and discharged home. The wound was covered with antibiotic ointment and a bandage. Decision to Disposition Date: Mar 26, 2018 Decision to Disposition Time: 11:25 Depart Departure Impression: Primary Impression: Visit for suture removal Condition: Improved Disposition: HOME OR SELF-CARE Referrals: IRIS LUONG MD (PCP) Patient Instructions: Acute Wound Care (ED) Additional Instructions: Drink plenty of water. Get plenty of rest. Continue to monitor for signs of infection. Return to the emergency department or follow-up with primary care provider for any other needs. SAMARIA ORANTES CLAY WORKER-BC Mar 26, 2018 11:25
[2018-03-29] MEDS ORDERED: WARF5TAB23 PO (16:43)
== END 2018-03-26 11:29 | disposition home or self-care (01) ==
LOC: ER 11:08
DX: S61.213D Laceration without foreign body of left middle finger without damage to nail, subsequent encounter (principal)
CPT/HCPCS: 99281

== ENCOUNTER → 2018-05-09 | Outpatient (CLI) | payer MEDICAID ==
[2015-09-11 09:32] VITALS: BMI 42.1
[~2018-05-09] MED LIST changes: +IPRA3AMP10 IH; -IPRA3AMP21 IH; +PHEN200T32 PO; -TRAZ-163 PO; +TRAZ100T31 PO
== END ==
LOC: LAB 11:55
PROVIDERS: ATTEND Nurse Practitioner Primary Care
DX: R30.0 Dysuria (principal); N39.0 Urinary tract infection, site not specified
CPT/HCPCS: 81001; 87088

== ENCOUNTER → 2018-05-10 | Outpatient (CLI) | payer MEDICAID ==
[2015-09-11 09:32] VITALS: BMI 42.1
== END ==
LOC: LAB 09:53
PROVIDERS: ATTEND Internal Medicine
DX: B88.8 Other specified infestations (principal)
CPT/HCPCS: 87169

== ENCOUNTER → 2018-05-11 | Outpatient (CLI) | payer MEDICAID ==
[2015-09-11 09:32] VITALS: BMI 42.1
[2018-05-11 16:23] LABS: LDL CHOLESTEROL 35 mg/dl
== END ==
LOC: LAB 15:48
PROVIDERS: ATTEND Internal Medicine
DX: E11.9 Type 2 diabetes mellitus without complications (principal); I10 Essential (primary) hypertension; E78.2 Mixed hyperlipidemia; N39.0 Urinary tract infection, site not specified
CPT/HCPCS: 36415; 81001; 82040; 82247; 82310; 82374; 82435; 82465; 82565; 82947; 83036; 83718; 84075; 84132; 84155; 84295; 84450; 84460; 84478; 84520

== ENCOUNTER 2018-05-13 13:21 | Emergency (ER) | payer MEDICAID ==
[2015-09-11 09:32] VITALS: Wt 109.8 kg
--- NOTE | 2018-05-13 13:39 | ER Report ---
History and Physical Time Seen By MD: 13:39 Hx. of Stated Complaint: HAS HAD A UTI FOR ABOUT A WEEK. CURRENTLY TAKING CIPRO. SHE THINKS IT'S EFFECTING HER COUMADIN BECAUSE SHE DOESN'T KNOW HER VALUES HPI/ROS CHIEF COMPLAINT: UTI HISTORY OF PRESENT ILLNESS: 57-year-old female patient presents to emergency room with complaint of UTI. Patient states that she has had this for the past week. She states she's been seen by her primary care provider on 2 separate occasions, was started on antibiotics and then had the antibiotics changed. She states that she's noticed that she still has some pain in the right lower quadrant. She states there is available as he is with the pain better or worse. She denies having any fevers, chills, nausea, vomiting or diarrhea. Patient denies having any fevers, chills, nausea, vomiting or diarrhea. She is nothing any other medication aside from the antibiotics that she was prescribed. REVIEW OF SYSTEMS: Respiratory: No cough, no dyspnea. Cardiovascular: No chest pain, no palpitations. Gastrointestinal: As noted above Musculoskeletal: No back pain. Allergies: Coded Allergies: erythromycin base (Verified Allergy, Mild, HIVES, 05/13/18) Erythromycin Ophthalmic Oint latex (Verified Allergy, Mild, 05/13/18) codeine (Verified Adverse Reaction, Mild, CAUSES CHEST PAIN, 05/13/18) Home Meds Active Scripts Ciprofloxacin Hcl (CIPROFLOXACIN HCL) 500 Mg Tablet, 1 TAB PO Q12H, #14 TAB 0 Refills Prov:IRIS LUONG MD 05/11/18 Phenazopyridine Hcl (PHENAZOPYRIDINE HCL) 200 Mg Tablet, 1 TAB PO TID Y for Painful Urination for 2 Days, #6 TAB 0 Refills Prov:KELVIN PLEITEZ DNP, [employer] 05/09/18 Blood-Glucose Meter (BLOOD-GLUCOSE METER) 1 Each Kit, KIT MC ONCE, #1 11 Refills One touch Ultra Prov:IRIS LUONG MD 04/06/18 Warfarin Sodium (WARFARIN SODIUM) 5 Mg Tablet, 1 TAB PO QDAY, #30 TAB 11 Refills Take one tablet daily or as instructed based on INR Prov:IRIS LUONG MD 03/29/18 Trazodone Hcl (TRAZODONE HCL) 100 Mg Tablet, 2 TAB PO QHS, #60 TAB 5 Refills Prov:IRIS LUONG MD 03/11/18 Potassium Chloride (POTASSIUM CHLORIDE) 20 Meq Tab.er.prt, 1 TAB PO BID, #60 TAB 5 Refills Prov:AMBREEN PRASAD APRN [employer] 01/23/18 Sumatriptan Succinate (SUMATRIPTAN SUCCINATE) 100 Mg Tablet, 0.5-1 TAB PO ONCE Y for MIGRAINE, #6 TAB 11 Refills Prov:IRIS LUONG MD 01/12/18 Escitalopram Oxalate (LEXAPRO) 10 Mg Tab, 3 TAB PO QDAY, #90 TAB 5 Refills Prov:IRIS LUONG MD 12/22/17 Furosemide (FUROSEMIDE) 40 Mg Tablet, 1 TAB PO DAILY, #30 TAB 11 Refills Prov:IRIS LUONG MD 11/09/17 Metformin Hcl (METFORMIN HCL ER) 1,000 Mg Tab.er.24, 1 TAB PO BID for 30 Days, # 60 TAB 11 Refills Prov:MICHAEL WELLINGTON PHARMD 11/02/17 Lancets (LANCETS ULTRA THIN) 1 Each Each, EACH MC Q30D, #100 12 Refills Prov:IRIS LUONG MD 05/11/17 Blood Sugar Diagnostic (ONE TOUCH ULTRA TEST STRIPS) 1 Each Strip, 50 EACH MC Q30D, #100 STRIP 12 Refills use to test BS twice daily Prov:IRIS LUONG MD 05/11/17 Simvastatin (SIMVASTATIN) 20 Mg Tablet, 1 TAB PO HS, #30 TAB 12 Refills Prov:IRIS LUONG MD 04/28/17 Reported Medications Cpap (CPAP HOME) Inha, HS 9 cm H2O pressure, with oxygen 3 liters 01/07/16 Discontinued Scripts Nitrofurantoin Monohyd/M-Cryst (MACROBID 100 MG CAPSULE) 100 Mg Capsule, 1 CAP PO BID for 5 Days, #10 CAPSULE 0 Refills Prov:KELVIN PLEITEZ DNP, [employer] 05/09/18 Peg/Electrolytes (GOLYTELY SOLUTION) 4,000 Ml Soln, 1 GAL PO ONCE, #1 GAL 0 Refills Prov:ASHLEY LOPEZ MD 03/07/18 Doxycycline Hyclate (DOXYCYCLINE HYCLATE) 100 Mg Tablet, 1 TAB PO BID, #14 TAB 0 Refills Prov:IRIS LUONG MD 02/16/18 Albuterol Sulfate (VENTOLIN HFA) 18 Gm Inh, 2 PUFF INH Q4-6H Y for shortness of breath, #1 INH 1 Refill Prov:IRIS LUONG MD 02/16/18 Benzonatate (BENZONATATE) 200 Mg Capsule, 1 CAP PO TID Y for cough, #15 CAP 1 Refill Prov:IRIS LUONG MD 02/16/18 Past Medical/Surgical History Patient has a past history of CVA, migraines, hyperlipidemia, sleep apnea, endometriosis, back pain, blood clots, depression. Patient has a surgical history of cholecystitis, , hysterectomy. Patient has a family medical history of stroke, diabetes, cancer. Reviewed Nurses Notes: Yes Hx Smoking: No Smoking Status: Never Smoker Exposure to Second Hand Smoke?: Yes Hx Substance Use Disorder: No Hx Alcohol Use: No Constitutional Vital Sign - Last 24 Hours 05/13/18 05/13/18 05/13/18 05/13/18 13:21 13:29 13:30 13:36 Temp 98.0 Pulse ??? 85 70 Resp 16 B/P (MAP) 113/70 (84) 113/70 Pulse Ox 90 92 O2 Delivery Room Air 05/13/18 05/13/18 05/13/18 05/13/18 13:51 14:06 14:36 14:51 Pulse ? 05/13/18 05/13/18 05/13/18 05/13/18 15:01 15:06 15:11 15:26 Pulse 65 ??? 62 B/P (MAP) 117/65 (82) Pulse Ox 89 97 05/13/18 05/13/18 05/13/18 05/13/18 15:30 15:41 15:56 16:00 Pulse 64 65 B/P (MAP) 105/50 (68) 111/69 (83) Pulse Ox 96 94 Physical Exam General Appearance: The patient is alert, has no immediate need for airway protection and no current signs of toxicity. Respiratory: Chest is non tender, lungs are clear to auscultation. Cardiac: regular rate and rhythm Gastrointestinal: Abdomen is soft and tender in the right side of the suprapubic area, no masses, bowel sounds normal. Musculoskeletal: Neck: Neck is supple and non tender. Extremities have full range of motion and are non tender. Skin: No rashes or lesions. DIFFERENTIAL DIAGNOSIS: After history and physical exam differential diagnosis was considered for abdominal pain including but not limited to appendicitis, cholecystitis, gastritis and urinary tract infection. Medical Decision Making Data Points Result Diagram: 05/13/18 1406 05/13/18 1406 Laboratory Hematology Test 05/13/18 13:25 05/13/18 14:06 Urine Color Straw Urine Clarity Clear Urine pH 5.0 pH (4.8-9.5) Urine Specific [place] 1.009 Urine Protein Negative mg/dL (NEGATIVE) Urine Glucose (UA) Negative mg/dL (NEGATIVE) Urine Ketones Negative mg/dL (NEGATIVE) Urine Blood Negative (NEGATIVE) Urine Nitrite Negative (NEGATIVE) Urine Bilirubin Negative (NEGATIVE) Urine Urobilinogen Negative mg/dL (0.2-1.9) Urine Leukocyte Esterase Negative (NEGATIVE) Urine RBC None /HPF (0-2/HPF) Urine WBC <1 /HPF (0-5/HPF) Urine Squamous Epithelial Cells Moderate /LPF (</=FEW) Urine Bacteria Few /HPF (NONE-FEW) Urine Mucus None /HPF (NONE-FEW) Red Blood Count 4.75 M/uL (4.17-5.56) Mean Corpuscular Volume 91.4 fL (80.0-96.0) Mean Corpuscular Hemoglobin 31.2 pg (26.0-33.0) Mean Corpuscular Hemoglobin Concent 34.2 g/dL (32.0-36.0) Red Cell Distribution Width 14.9 % (11.5-14.5) Mean Platelet Volume 7.9 fL (7.2-11.1) Neutrophils (%) (Auto) 64.4 % (39.4-72.5) Lymphocytes (%) (Auto) 21.8 % (17.6-49.6) Monocytes (%) (Auto) 10.1 % (4.1-12.4) Eosinophils (%) (Auto) 3.1 % (0.4-6.7) Basophils (%) (Auto) 0.6 % (0.3-1.4) Nucleated RBC Relative Count (auto) 0.1 /100WBC Neutrophils # (Auto) 4.4 K/uL (2.0-7.4) Lymphocytes # (Auto) 1.5 K/uL (1.3-3.6) Monocytes # (Auto) 0.7 K/uL (0.3-1.0) Eosinophils # (Auto) 0.2 K/uL (0.0-0.5) Basophils # (Auto) 0.0 K/uL (0.0-0.1) Nucleated RBC Absolute Count (auto) 0.01 K/uL Prothrombin Time 16.2 seconds (12.0-14.4) Prothromb Time International Ratio 1.29 Sodium Level 142 mmol/L (137-145) Potassium Level 3.7 mmol/L (3.5-5.0) Chloride Level 104 mmol/L (98-107) Carbon Dioxide Level 26 mmol/L (22-31) Blood Urea Nitrogen 16 mg/dl (7-18) Creatinine 0.80 mg/dl (0.52-1.04) Glomerular Filtration Rate Calc > 60.0 Random Glucose 98 mg/dl (75-110) Calcium Level 9.0 mg/dl (8.4-10.2) Total Bilirubin 0.3 mg/dl (0.2-1.3) Aspartate Amino Transf (AST/SGOT) 24 U/L (0-35) Alanine Aminotransferase (ALT/SGPT) 29 U/L (0-56) Alkaline Phosphatase 35 U/L (0-126) Total Protein 7.0 g/dl (6.3-8.2) Albumin 4.1 g/dl (3.5-5.0) Chemistry Test 05/13/18 13:25 05/13/18 14:06 Urine Color Straw Urine Clarity Clear Urine pH 5.0 pH (4.8-9.5) Urine Specific [place] 1.009 Urine Protein Negative mg/dL (NEGATIVE) Urine Glucose (UA) Negative mg/dL (NEGATIVE) Urine Ketones Negative mg/dL (NEGATIVE) Urine Blood Negative (NEGATIVE) Urine Nitrite Negative (NEGATIVE) Urine Bilirubin Negative (NEGATIVE) Urine Urobilinogen Negative mg/dL (0.2-1.9) Urine Leukocyte Esterase Negative (NEGATIVE) Urine RBC None /HPF (0-2/HPF) Urine WBC <1 /HPF (0-5/HPF) Urine Squamous Epithelial Cells Moderate /LPF (</=FEW) Urine Bacteria Few /HPF (NONE-FEW) Urine Mucus None /HPF (NONE-FEW) White Blood Count 6.8 k/uL (4.5-11.0) Red Blood Count 4.75 M/uL (4.17-5.56) Hemoglobin 14.8 g/dL (12.0-16.0) Hematocrit 43.5 % (34.0-47.0) Mean Corpuscular Volume 91.4 fL (80.0-96.0) Mean Corpuscular Hemoglobin 31.2 pg (26.0-33.0) Mean Corpuscular Hemoglobin Concent 34.2 g/dL (32.0-36.0) Red Cell Distribution Width 14.9 % (11.5-14.5) Platelet Count 228 K/uL (150-450) Mean Platelet Volume 7.9 fL (7.2-11.1) Neutrophils (%) (Auto) 64.4 % (39.4-72.5) Lymphocytes (%) (Auto) 21.8 % (17.6-49.6) Monocytes (%) (Auto) 10.1 % (4.1-12.4) Eosinophils (%) (Auto) 3.1 % (0.4-6.7) Basophils (%) (Auto) 0.6 % (0.3-1.4) Nucleated RBC Relative Count (auto) 0.1 /100WBC Neutrophils # (Auto) 4.4 K/uL (2.0-7.4) Lymphocytes # (Auto) 1.5 K/uL (1.3-3.6) Monocytes # (Auto) 0.7 K/uL (0.3-1.0) Eosinophils # (Auto) 0.2 K/uL (0.0-0.5) Basophils # (Auto) 0.0 K/uL (0.0-0.1) Nucleated RBC Absolute Count (auto) 0.01 K/uL Prothrombin Time 16.2 seconds (12.0-14.4) Prothromb Time International Ratio 1.29 Glomerular Filtration Rate Calc > 60.0 Calcium Level 9.0 mg/dl (8.4-10.2) Total Bilirubin 0.3 mg/dl (0.2-1.3) Aspartate Amino Transf (AST/SGOT) 24 U/L (0-35) Alanine Aminotransferase (ALT/SGPT) 29 U/L (0-56) Alkaline Phosphatase 35 U/L (0-126) Total Protein 7.0 g/dl (6.3-8.2) Albumin 4.1 g/dl (3.5-5.0) Coagulation Test 05/13/18 14:06 Prothrombin Time 16.2 seconds Prothromb Time International Ratio 1.29 Urinalysis Test 05/13/18 13:25 Urine Color Straw Urine Clarity Clear Urine pH 5.0 pH (4.8-9.5) Urine Specific [place] 1.009 Urine Protein Negative mg/dL (NEGATIVE) Urine Glucose (UA) Negative mg/dL (NEGATIVE) Urine Ketones Negative mg/dL (NEGATIVE) Urine Blood Negative (NEGATIVE) Urine Nitrite Negative (NEGATIVE) Urine Bilirubin Negative (NEGATIVE) Urine Urobilinogen Negative mg/dL (0.2-1.9) Urine Leukocyte Esterase Negative (NEGATIVE) Urine RBC None /HPF (0-2/HPF) Urine WBC <1 /HPF (0-5/HPF) Urine Squamous Epithelial Cells Moderate /LPF (</=FEW) Urine Bacteria Few /HPF (NONE-FEW) Urine Mucus None /HPF (NONE-FEW) EKG/Imaging Imaging EXAMINATION: CT abdomen and pelvis with contrast COMPARISON: 03/17/2017 HISTORY: abdominal pain PROCEDURE: Multiplanar contrast enhanced CT of the abdomen and pelvis with 75 mL intravenous Isovue 370. One of the following dose optimization techniques was utilized in the performance of this exam: Automated exposure control; adjustment of the mA and/or kV according to the patient's size; or use of an iterative reconstruction technique. Specific details can be referenced in the facility's radiology CT exam operational policy. FINDINGS: Visualized thorax: No evidence of acute disease within the visualized lower thorax. Liver: Negative. Gallbladder and biliary system: Cholecystectomy. No acute bile duct dilation. Spleen: Negative. Pancreas: Negative. Adrenal glands: Negative. Kidneys and bladder: No renal mass or evidence of an obstructive uropathy. Urinary bladder is unremarkable. Vessels: Within normal limits. Bowel and mesentery: Stomach, small bowel, and appendix are unremarkable. Small amount of stool in the colon. No bowel or mesenteric inflammation. Pelvic organs: Hysterectomy. No adnexal mass. Lymph nodes: No adenopathy. Free air/free fluid: None. Abdominal wall and osseous structures: Abdominal wall is intact. Minor degenerative change in the visualized spine. No acute findings. IMPRESSION: 1. No findings of acute disease in the abdomen or pelvis. 2. Nonacute findings as described above. Report Dictated By: Deo Smith MD at 05/13/2018 3:19 PM Report E-Signed By: Deo Smith MD at 05/13/2018 3:28 PM ED Course/Re-evaluation ED Course Patient is admitted in exam room, history and physical were obtained. Differential diagnoses were considered. On examination lungs are clear, heart is regular, abdomen is soft and tender in the right lower quadrant. Urinalysis was done which showed no leukocyte esterase, no nitrites and no white blood cells. As result of that a CBC, CMP were done. The labs were unremarkable. CT scan of abdomen and pelvis was done which showed no acute findings. I discussed the findings with the patient. We will go ahead and discharge patient home at this time. We will have her continue with her normal medications and finish her antibiotics. She is return to emergency room if condition worsens. She is follow -up with her primary care provider next week. Patient verbalized understanding and agreement with plan. Decision to Disposition Date: May 13, 2018 Decision to Disposition Time: 15:58 Depart Departure Latest Vital Signs Vital Signs Date Time Temp Pulse Resp B/P (MAP) Pulse Ox O2 Delivery O2 Flow Rate FiO2 05/13/18 16:00 111/69 (83) 05/13/18 15:56 65 94 05/13/18 13:30 98.0 16 Room Air Impression: Primary Impression: Abdominal pain Condition: Improved Disposition: HOME OR SELF-CARE Referrals: IRIS LUONG MD (PCP) Patient Instructions: Abdominal Pain (ED) Additional Instructions: Increase fluid intake. Get plenty of rest. Finish your antibiotics. Limit activity by pain. Follow up with your primary care provider in the next week if pain persists. Return to the ER if condition worsens. Problem Qualifiers Primary Impression: Abdominal pain Abdominal location: right lower quadrant Qualified Codes: R10.31 - Right lower quadrant pain JERONIMO KAURP May 13, 2018 13:39
[2018-05-13] MEDS ORDERED: IOPAMIDOL 76% 75 ML INFUS BTL 75 ML ONE (14:23)
[2018-05-13] MEDS ORDERED: NS 0.9% 25 ML BAG 25 ML ONE (14:23)
[2018-05-13 14:24] LABS: PLATELET COUNT, AUTOMATED 228 K/uL (150-450)
[2018-05-13 14:27] LABS: INR 1.29
--- NOTE | 2018-05-13 15:32 | RADIOLOGY IMAGING REPORT ---
FACILITY: [facility] [place] PATIENT NAME: Ana Lion : 1960 MR: [id number] V: [id number] EXAM DATE: ORDERING PHYSICIAN: JERONIMO KAUR TECHNOLOGIST: Location: [facility] [place] Patient: Ana Lion : 1960 Visit/Account:[id number] Date of Sevice: 05/13/2018 EXAMINATION: CT abdomen and pelvis with contrast COMPARISON: 03/17/2017 HISTORY: abdominal pain PROCEDURE: Multiplanar contrast enhanced CT of the abdomen and pelvis with 75 mL intravenous Isovue 3 70. One of the following dose optimization techniques was utilized in the performance of this exam: A utomated exposure control; adjustment of the mA and/or kV according to the patient's size; or use of an iterative reconstruction technique. Specific details can be referenced in the facility's radiolo gy CT exam operational policy. FINDINGS: Visualized thorax: No evidence of acute disease within the visualized lower thorax. Liver: Negative. Gallbladder and biliary system: Cholecystectomy. No acute bile duct dilation. Spleen: Negative. Pancreas: Negative. Adrenal glands: Negative. Kidneys and bladder: No renal mass or evidence of an obstructive uropathy. Urinary bladder is unrema rkable. Vessels: Within normal limits. Bowel and mesentery: Stomach, small bowel, and appendix are unremarkable. Small amount of stool in th e colon. No bowel or mesenteric inflammation. Pelvic organs: Hysterectomy. No adnexal mass. Lymph nodes: No adenopathy. Free air/free fluid: None. Abdominal wall and osseous structures: Abdominal wall is intact. Minor degenerative change in the vis ualized spine. No acute findings. IMPRESSION: 1. No findings of acute disease in the abdomen or pelvis. 2. Nonacute findings as described above. Report Dictated By: Deo Smith MD at 05/13/2018 3:19 PM Report E-Signed By: Deo Smith MD at 05/13/2018 3:28 PM WSN:[id number]
[2018-05-13 16:00] VITALS: BP 111/69
== END 2018-05-13 16:11 | disposition home or self-care (01) ==
LOC: ER 13:26
DX: R10.31 Right lower quadrant pain (principal); E78.5 Hyperlipidemia, unspecified; G47.30 Sleep apnea, unspecified; F32.9 Major depressive disorder, single episode, unspecified; Z79.01 Long term (current) use of anticoagulants; Z79.84 Long term (current) use of oral hypoglycemic drugs
CPT/HCPCS: 74177; 81001; 85025; 85610; 99284; Q9967; 82040; 82247; 82310; 82374; 82435; 82565; 82947; 84075; 84132; 84155; 84295; 84450; 84460; 84520

== ENCOUNTER → 2018-05-31 | Outpatient (CLI) | payer MEDICAID ==
[2015-09-11 09:32] VITALS: BMI 42.1
[2018-05-31 08:41] LABS: INR 1.67
== END ==
LOC: LAB 08:06
PROVIDERS: ATTEND Pharmacist Pharmacotherapy
DX: Z51.81 Encounter for therapeutic drug level monitoring (principal); Z79.01 Long term (current) use of anticoagulants; G45.9 Transient cerebral ischemic attack, unspecified
CPT/HCPCS: 36415; 85610

== ENCOUNTER → 2018-07-24 | Outpatient (REF) | payer MEDICAID ==
[2015-09-11 09:32] VITALS: BMI 42.1
[~2018-07-24] MED LIST changes: -HYDR-4309 PO; +HYDR-653 PO; -METF-411 PO; +METF-450 PO
[2018-07-24 18:29] LABS: PLATELET COUNT, AUTOMATED 244 K/uL (150-450)
== END ==
PROVIDERS: ATTEND Family Medicine
DX: R52 Pain, unspecified (principal); R68.83 Chills (without fever); R05 Cough
CPT/HCPCS: 82040; 82247; 82310; 82374; 82435; 82565; 82947; 84075; 84132; 84155; 84295; 84450; 84460; 84520; 85025

== ENCOUNTER → 2018-07-26 | Outpatient (CLI) | payer MEDICAID ==
[2015-09-11 09:32] VITALS: BMI 42.1
[~2018-07-26] MED LIST changes: +IOPAMIDOL 76% 75 ML INFUS BTL 75 ML ONE; +NS(*) 0.9% 50 ML BAG 50 ML ONE
--- NOTE | 2018-07-26 15:24 | RADIOLOGY IMAGING REPORT ---
FACILITY: [facility] PATIENT NAME: Ana Lion : 1960 MR: [id number] V: [id number] EXAM DATE: ORDERING PHYSICIAN: BARB GIMENEZ TECHNOLOGIST: Location: [facility] Patient: Ana Lion : 1960 Visit/Account:[id number] Date of Sevice: 07/26/2018 CTA CHEST WW/O CNTR (PULM ANG) HISTORY: Cough ADDITIONAL HISTORY: None. TECHNIQUE: CTA chest with intravenous contrast. Axial imaging acquired following administration of IV contrast timed for maximum opacification of the pulmonary arterial vasculature. Slab 3-D MIP [place] nstructed images were also created for further evaluation and interpretation. Reconstruction of the [facility] data set includes multiplanar 2-D in the sagittal and coronal planes and 3-D reconstructed cecelia nal slab MIP series. 3-D images were created by the technologist.Dose Lowering Technique One of the following dose optimization techniques was utilized in the performance of this exam: Autom ated exposure control; adjustment of the mA and/or kV according to the patient's size; or use of an i terative reconstruction technique. Specific details can be referenced in the facility's radiology C T exam operational policy. CONTRAST: 75 mL Isovue-370 COMPARISON: CTA chest October 14, 2017 FINDINGS: Lungs/pleura: Negative. Heart/vessels: There is no evidence of pulmonary emboli demonstrated. Pulmonary arteries are promin ent although similar to the prior study Mediastinum/lymph nodes: Negative. Visualized upper abdomen: There are postsurgical changes from a prior cholecystectomy there are jadon ateral vessels in the left upper quadrant of the abdomen Bones/soft tissues: S-shaped scoliosis of the thoracic spine with spondylotic changes. Moderate to severe spondylotic changes lower cervical spine also again noted Additional findings: None IMPRESSION: No evidence of pulmonary emboli Mildly prominent central arteries similar to the prior study Collateral vessels are identified in the left upper quadrant of abdomen Report Dictated By: Marlin Clark MD at 07/26/2018 3:06 PM Report E-Signed By: Marlin Clark MD at 07/26/2018 3:19 PM [id number]:[email or web address]
== END ==
LOC: CT 01:29
PROVIDERS: ATTEND Family Medicine
DX: I34.0 Nonrheumatic mitral (valve) insufficiency (principal); R91.8 Other nonspecific abnormal finding of lung field
CPT/HCPCS: 71275; 93306; J7050; Q9967

== ENCOUNTER 2018-07-27 19:18 | Emergency (ER) | payer MEDICAID ==
[2015-09-11 09:32] VITALS: Wt 106.1 kg
[~2018-07-27 19:18] MED LIST changes: -IOPAMIDOL 76% 75 ML INFUS BTL 75 ML ONE; -NS(*) 0.9% 50 ML BAG 50 ML ONE
--- NOTE | 2018-07-27 19:28 | ER Report ---
History and Physical Time Seen By MD: 19:28 Hx. of Stated Complaint: COUGH FOR 4 WEEKS, CHEST PAIN STARTED TONIGHT HPI/ROS CHIEF COMPLAINT: chest pain HISTORY OF PRESENT ILLNESS: This is a 57 year old female. She has had a cough for about a month now. Dry and non-productive. Tonight, started with pressure and sharp pain in right upper chest wall. Nothing seems to make it worse or better. Had been seen at urgent care yesterday, CTA of the chest was done and was negative. She has been on azithromycin for 5 days now, finished today. Has no fevers or chills. No sore throat or runny nose. No reflux. No abdominal pain. No nausea or vomiting. Allergies: Coded Allergies: erythromycin base (Verified Allergy, Mild, HIVES, 07/27/18) Erythromycin Ophthalmic Oint latex (Verified Allergy, Mild, 07/27/18) codeine (Verified Adverse Reaction, Mild, CAUSES CHEST PAIN, 07/27/18) Home Meds Active Scripts Prednisone (PREDNISONE) 20 Mg Tablet, 60 MG PO QDAY, #12 TAB 0 Refills Prov:ARPITA SHERMAN MD 07/27/18 Benzonatate 100 Mg Cap (TESSALON PERLE 100 MG CAP) 100 Mg Capsule, 100 MG PO TID PRN for COUGH, #15 CAP 0 Refills Prov:ARPITA SHERMAN MD 07/27/18 Potassium Chloride (POTASSIUM CHLORIDE) 20 Meq Tab.er.prt, 1 TAB PO BID, #60 TAB 0 Refills Prov:AMBREEN PRASAD APRN MILLING MACHINE TENDER-C 07/21/18 Escitalopram Oxalate (LEXAPRO) 10 Mg Tab, 3 TAB PO QDAY, #90 TAB 1 Refill Prov:IRIS LUONG MD 06/21/18 Blood Sugar Diagnostic (ONE TOUCH ULTRA TEST STRIPS) 1 Each Strip, 50 EACH MC Q30D, #100 STRIP 5 Refills use to test BS twice daily Prov:IRIS LUONG MD 06/06/18 Simvastatin (SIMVASTATIN) 20 Mg Tablet, 1 TAB PO HS, #30 TAB 12 Refills Prov:IRIS LUONG MD 05/22/18 Ciprofloxacin Hcl (CIPROFLOXACIN HCL) 500 Mg Tablet, 1 TAB PO Q12H, #14 TAB 0 Refills Prov:IRIS LUONG MD 05/11/18 Phenazopyridine Hcl (PHENAZOPYRIDINE HCL) 200 Mg Tablet, 1 TAB PO TID PRN for Painful Urination for 2 Days, #6 TAB 0 Refills Prov:KELVIN PLEITEZ DNP, MILLING MACHINE TENDER-BC 05/09/18 Blood-Glucose Meter (BLOOD-GLUCOSE METER) 1 Each Kit, KIT MC ONCE, #1 11 Refills One touch Ultra Prov:IRIS LUONG MD 04/06/18 Warfarin Sodium (WARFARIN SODIUM) 5 Mg Tablet, 1 TAB PO QDAY, #30 TAB 11 Refills Take one tablet daily or as instructed based on INR Prov:IRIS LUONG MD 03/29/18 Trazodone Hcl (TRAZODONE HCL) 100 Mg Tablet, 2 TAB PO QHS, #60 TAB 5 Refills Prov:IRIS LUONG MD 03/11/18 Sumatriptan Succinate (SUMATRIPTAN SUCCINATE) 100 Mg Tablet, 0.5-1 TAB PO ONCE PRN for MIGRAINE, #6 TAB 11 Refills Prov:IRIS LUONG MD 01/12/18 Furosemide (FUROSEMIDE) 40 Mg Tablet, 1 TAB PO DAILY, #30 TAB 11 Refills Prov:IRIS LUONG MD 11/09/17 Metformin Hcl (METFORMIN HCL ER) 1,000 Mg Tab.er.24, 1 TAB PO BID for 30 Days, #60 TAB 11 Refills Prov:MICHAEL WELLINGTON PHARMDane 11/02/17 Lancets (LANCETS ULTRA THIN) 1 Each Each, EACH MC Q30D, #100 12 Refills Prov:IRIS LUONG MD 05/11/17 Reported Medications Cpap (CPAP HOME) Inha, HS 9 cm H2O pressure, with oxygen 3 liters 01/07/16 Reviewed Nurses Notes: Yes Hx Smoking: No Smoking Status: Never Smoker Exposure to Second Hand Smoke?: Yes Hx Substance Use Disorder: No Hx Alcohol Use: No Constitutional Vital Sign - Last 24 Hours 07/27/18 07/27/18 07/27/18 07/27/18 19:20 19:20 19:30 19:33 Temp 98.8 Pulse 67 61 Resp 14 16 B/P (MAP) 127/71 127/71 (89) 96/67 (77) Pulse Ox 93 95 O2 Delivery Room Air 07/27/18 07/27/18 07/27/18 07/27/18 19:38 19:53 20:00 20:08 Pulse 59 55 54 Resp 35 22 24 B/P (MAP) 108/73 (85) Pulse Ox 93 94 94 07/27/18 07/27/18 07/27/18 07/27/18 20:13 20:28 20:30 20:36 Pulse 55 55 Resp 8 11 B/P (MAP) 98/59 (72) 100/60 (73) Pulse Ox 94 95 07/27/18 07/27/18 07/27/18 07/27/18 20:43 20:48 21:00 21:03 Pulse 54 61 56 Resp 15 0 12 B/P (MAP) 114/73 (87) Pulse Ox 95 92 96 Physical Exam General Appearance: The patient is alert. No acute distress. Eyes: Pupils are equal, round. No pallor, injection or icterus. ENT: Mucous membranes are moist. Normal oral mucosa. Posterior oropharynx is normal. Neck: Supple and non tender. Respiratory: Lungs are clear to auscultation. Cardiovascular: Regular rate and rhythm. No murmurs, gallops or rubs. Normal capillary refill. No edema. Gastrointestinal: Abdomen is soft and non tender. Nondistended. Normal active bowel sounds. Neurological: Alert and oriented x3. Skin: Warm and dry. No rashes. Musculoskeletal: Extremities are nontender. No tenderness in palpation of the cervical, thoracic and lumbar spine. DIFFERENTIAL DIAGNOSIS: After history and physical exam, differential diagnosis was considered for chest pain including but not limited to myocardial ischemia, pericarditis pulmonary embolus, chest wall pain, pleural inflammation and pulmonary infectious causes. Medical Decision Making Data Points Result Diagram: 07/27/18192507/27/181925 Laboratory Hematology Test 07/27/18 19:26 Red Blood Count 5.01 M/uL (4.17-5.56) Mean Corpuscular Volume 90.2 fL (80.0-96.0) Mean Corpuscular Hemoglobin 30.4 pg (26.0-33.0) Mean Corpuscular Hemoglobin Concent 33.7 g/dL (32.0-36.0) Red Cell Distribution Width 14.8 % (11.5-14.5) Mean Platelet Volume 8.2 fL (7.2-11.1) Neutrophils (%) (Auto) 56.8 % (39.4-72.5) Lymphocytes (%) (Auto) 30.9 % (17.6-49.6) Monocytes (%) (Auto) 8.5 % (4.1-12.4) Eosinophils (%) (Auto) 3.2 % (0.4-6.7) Basophils (%) (Auto) 0.6 % (0.3-1.4) Nucleated RBC Relative Count (auto) 0.1 /100WBC Neutrophils # (Auto) 4.3 K/uL (2.0-7.4) Lymphocytes # (Auto) 2.4 K/uL (1.3-3.6) Monocytes # (Auto) 0.6 K/uL (0.3-1.0) Eosinophils # (Auto) 0.2 K/uL (0.0-0.5) Basophils # (Auto) 0.0 K/uL (0.0-0.1) Nucleated RBC Absolute Count (auto) 0.01 K/uL Sodium Level 140 mmol/L (137-145) Potassium Level 3.4 mmol/L (3.5-5.0) Chloride Level 103 mmol/L (98-107) Carbon Dioxide Level 26 mmol/L (22-31) Blood Urea Nitrogen 13 mg/dl (7-18) Creatinine 0.70 mg/dl (0.52-1.04) Glomerular Filtration Rate Calc > 60.0 Random Glucose 88 mg/dl (75-110) Calcium Level 9.5 mg/dl (8.4-10.2) Total Bilirubin 0.4 mg/dl (0.2-1.3) Aspartate Amino Transf (AST/SGOT) 22 U/L (0-35) Alanine Aminotransferase (ALT/SGPT) 30 U/L (0-56) Alkaline Phosphatase 52 U/L (0-126) Troponin I < 0.012 ng/ml B-Type Natriuretic Peptide 20 pg/ml (0-100) Total Protein 7.9 g/dl (6.3-8.2) Albumin 4.3 g/dl (3.5-5.0) Chemistry Test 07/27/18 19:26 White Blood Count 7.6 k/uL (4.5-11.0) Red Blood Count 5.01 M/uL (4.17-5.56) Hemoglobin 15.2 g/dL (12.0-16.0) Hematocrit 45.1 % (34.0-47.0) Mean Corpuscular Volume 90.2 fL (80.0-96.0) Mean Corpuscular Hemoglobin 30.4 pg (26.0-33.0) Mean Corpuscular Hemoglobin Concent 33.7 g/dL (32.0-36.0) Red Cell Distribution Width 14.8 % (11.5-14.5) Platelet Count 247 K/uL (150-450) Mean Platelet Volume 8.2 fL (7.2-11.1) Neutrophils (%) (Auto) 56.8 % (39.4-72.5) Lymphocytes (%) (Auto) 30.9 % (17.6-49.6) Monocytes (%) (Auto) 8.5 % (4.1-12.4) Eosinophils (%) (Auto) 3.2 % (0.4-6.7) Basophils (%) (Auto) 0.6 % (0.3-1.4) Nucleated RBC Relative Count (auto) 0.1 /100WBC Neutrophils # (Auto) 4.3 K/uL (2.0-7.4) Lymphocytes # (Auto) 2.4 K/uL (1.3-3.6) Monocytes # (Auto) 0.6 K/uL (0.3-1.0) Eosinophils # (Auto) 0.2 K/uL (0.0-0.5) Basophils # (Auto) 0.0 K/uL (0.0-0.1) Nucleated RBC Absolute Count (auto) 0.01 K/uL Glomerular Filtration Rate Calc > 60.0 Calcium Level 9.5 mg/dl (8.4-10.2) Total Bilirubin 0.4 mg/dl (0.2-1.3) Aspartate Amino Transf (AST/SGOT) 22 U/L (0-35) Alanine Aminotransferase (ALT/SGPT) 30 U/L (0-56) Alkaline Phosphatase 52 U/L (0-126) Troponin I < 0.012 ng/ml B-Type Natriuretic Peptide 20 pg/ml (0-100) Total Protein 7.9 g/dl (6.3-8.2) Albumin 4.3 g/dl (3.5-5.0) EKG/Imaging EKG Interpretation 12 lead EKG: Rhythm: normal sinus rhythm, rate 57 Cucumber: normal QRS: normal ST segments: Nonspecific changes but no discrete elevation or depression noted, strain pattern in V3 through V5 Imaging 2 VIEWS CHEST INDICATION: Cough for 4 weeks. Chest pain for one day. COMPARISON: 02/02/2018. FINDINGS: Cardiomediastinal silhouette and pulmonary vessels within normal limits. There is no focal infiltrate or lobar consolidation. There is no pneumothorax or pleural effusion. No nodule. Upper abdomen is unremarkable. No acute bony abnormality. IMPRESSION: 1. No acute cardiopulmonary process. Report Dictated By: Abiodun Lopes at 07/27/2018 8:21 PM ED Course/Re-evaluation Clinical Indication for ER IV: Hydration, IV Access ED Course Labs unremarkable. Chest x-ray clear. EKG unremarkable. Reviewed the results with the patient. Trial of Benzonatate and adding a burst of prednisone. Decision to Disposition Date: Jul 27, 2018 Decision to Disposition Time: 20:58 Depart Departure Latest Vital Signs Vital Signs Date Time Temp Pulse Resp B/P (MAP) Pulse Ox O2 Delivery O2 Flow Rate FiO2 07/27/18 21:03 56 12 96 07/27/18 21:00 114/73 (87) 07/27/18 19:20 98.8 Room Air Impression: Primary Impression: Chest pain Additional Impression: Cough Condition: Improved Disposition: HOME OR SELF-CARE Referrals: IRIS LUONG MD (PCP) New Scripts Prednisone (PREDNISONE) 20 Mg Tablet 60 MG PO QDAY, #12 TAB 0 Refills Prov: ARPITA SHERMAN MD 07/27/18 Benzonatate 100 Mg Cap (TESSALON PERLE 100 MG CAP) 100 Mg Capsule 100 MG PO TID PRN for COUGH, #15 CAP 0 Refills Prov: ARPITA SHERMAN MD 07/27/18 Patient Instructions: Chest Pain (ED), Chronic Cough (ED) Additional Instructions: Follow-up with your primary care provider. Consider seeing a underwriting support specialist. Benzonatate every 8 hours as needed for cough. Prednisone 20mg tablets, take 3 tablets once a day for 4 days. Problem Qualifiers Primary Impression: Chest pain Chest pain type: unspecified Qualified Codes: R07.9 - Chest pain, unspecified ARPITA SHERMAN MD Jul 27, 2018 19:28
[2018-07-27] MEDS ORDERED: BENZONATATE 100 MG CAP PO ONE ×2 (19:50→21:05)
[2018-07-27] MEDS ORDERED: ASPIRIN 81 MG CHEW PO ONE (19:50)
--- NOTE | 2018-07-27 19:54 | EKG ---
FACILITY: [facility] PATIENT NAME: MIRYAM EASON : [id number] MR: [id number] V: [id number] EXAM DATE: ORDERING PHYSICIAN: ARPITA SHERMAN TECHNOLOGIST: RANI Tovar Reason : CHEST PAIN Blood Pressure : / mmHG Vent. Rate : 057 BPM Atrial Rate : 057 BPM P-R Int : 144 ms QRS Dur : 074 ms QT Int : 492 ms P-R-T Axes : 036 067 056 degrees QTc Int : [address] and T wave abnormality, consider inferior ischemia Abnormal ECG When compared with ECG of 02-FEB-2018 18:51, ST now depressed in Inferior leads T wave inversion no longer evident in Lateral leads QT has lengthened Confirmed by Hemal Cox ([id number] on 07/27/2018 8:14:35 PM Referred By: Confirmed By:Hemal Moya
[2018-07-27 19:56] LABS: PLATELET COUNT, AUTOMATED 247 K/uL (150-450)
--- NOTE | 2018-07-27 20:26 | RADIOLOGY IMAGING REPORT ---
FACILITY: [facility] [place] PATIENT NAME: Ana Lion : 1960 MR: [id number] V: [id number] EXAM DATE: ORDERING PHYSICIAN: ARPITA SHERMAN TECHNOLOGIST: Location: [facility] Patient: Ana Lion : 1960 Visit/Account:[id number] Date of Sevice: 07/27/2018 2 VIEWS CHEST INDICATION: Cough for 4 weeks. Chest pain for one day. COMPARISON: 02/02/2018. FINDINGS: Cardiomediastinal silhouette and pulmonary vessels within normal limits. There is no focal infiltrate or lobar consolidation. There is no pneumothorax or pleural effusion. No nodule. Upper abdomen is unremarkable. No acute bony abnormality. IMPRESSION: 1. No acute cardiopulmonary process. Report Dictated By: Abiodun Lopes at 07/27/2018 8:21 PM Report E-Signed By: Abiodun Lopes at 07/27/2018 8:22 PM WSN:[id number]
[2018-07-27 21:00] VITALS: BP 114/73
[2018-07-27] MEDS ORDERED: predniSONE 20 MG TAB PO ONE (21:00)
[2018-07-27] MEDS ORDERED: PRED20TA6 PO (21:01)
[2018-07-27] MEDS ORDERED: BENZ100C4 PO (21:01)
== END 2018-07-27 21:08 | disposition home or self-care (01) ==
LOC: ER 19:29
DX: R07.89 Other chest pain (principal); R05 Cough; R00.1 Bradycardia, unspecified
CPT/HCPCS: 83880; 84484; 85025; 93005; 99284; J7512; 71046; 82040; 82247; 82310; 82374; 82435; 82565; 82947; 84075; 84132; 84155; 84295; 84450; 84460; 84520

== ENCOUNTER → 2018-08-04 | Outpatient (CLI) | payer MEDICAID ==
[2015-09-11 09:32] VITALS: BMI 42.1
== END ==
LOC: RESP 07:07
PROVIDERS: ATTEND Internal Medicine
DX: R05 Cough (principal)
CPT/HCPCS: 94060; 94726; 94729

== ENCOUNTER → 2018-08-16 | Outpatient (CLI) | payer MEDICAID ==
[2015-09-11 09:32] VITALS: BMI 42.1
[2018-08-16 13:52] LABS: INR 1.72
== END ==
LOC: LAB 10:37
PROVIDERS: ATTEND Pharmacist Pharmacotherapy
DX: G45.9 Transient cerebral ischemic attack, unspecified (principal)
CPT/HCPCS: 36415; 85610

== ENCOUNTER → 2018-09-13 | Outpatient (CLI) | payer MEDICAID ==
[2015-09-11 09:32] VITALS: BMI 42.1
[2018-09-13 08:59] LABS: LDL CHOLESTEROL 64 mg/dl
== END ==
LOC: LAB 08:23
PROVIDERS: ATTEND Internal Medicine
DX: E11.9 Type 2 diabetes mellitus without complications (principal); I10 Essential (primary) hypertension; R78.2 Finding of cocaine in blood
CPT/HCPCS: 36415; 82040; 82247; 82310; 82374; 82435; 82465; 82565; 82947; 83036; 83718; 84075; 84132; 84155; 84295; 84450; 84460; 84478; 84520

== ENCOUNTER → 2018-10-16 | Outpatient (CLI) | payer MEDICAID ==
[2015-09-11 09:32] VITALS: BMI 42.1
[2018-10-16 08:01] LABS: PLATELET COUNT, AUTOMATED 230 K/uL (150-450)
--- NOTE | 2018-10-16 08:22 | EKG ---
FACILITY: [facility] [place] PATIENT NAME: MIRYAM EASON : [id number] MR: [id number] V: [id number] EXAM DATE: ORDERING PHYSICIAN: FRANK BOTELLO TECHNOLOGIST: ASH Test Reason : PRE OP Blood Pressure : / mmHG Vent. Rate : 065 BPM Atrial Rate : 065 BPM P-R Int : 154 ms QRS Dur : 082 ms QT Int : 444 ms P-R-T Axes : 040 068 -61 degrees QTc Int : 461 ms Sinus arrhythmia Nonspecific ST and T wave abnormality Prolonged QT Abnormal ECG Confirmed by PEBBLES KERR ([id number] on 10/16/2018 12:48:50 PM Referred By: ROSMERY Confirmed By:PEBBLES KERR
== END ==
LOC: LAB 07:48
PROVIDERS: ATTEND Orthopaedic Surgery
DX: Z01.812 Encounter for preprocedural laboratory examination (principal); Z01.810 Encounter for preprocedural cardiovascular examination; R94.31 Abnormal electrocardiogram [ECG] [EKG]; I49.9 Cardiac arrhythmia, unspecified; I45.81 Long QT syndrome
CPT/HCPCS: 36415; 82040; 82247; 82310; 82374; 82435; 82565; 82947; 84075; 84132; 84155; 84295; 84450; 84460; 84520; 85025; 93005

== ENCOUNTER 2018-12-28 21:09 | Emergency (ER) | payer MEDICAID ==
[2015-09-11 09:32] VITALS: Wt 106.1 kg
[~2018-12-28 21:09] MED LIST changes: +BACI3.5O25 OP; +METXR500 PO; +PNEI IM; +TRAM-420 PO
--- NOTE | 2018-12-28 21:23 | ER Report ---
History and Physical Time Seen By MD: 21:14 Hx. of Stated Complaint: STARTED FEELING SOB AROUND 8PM TONIGHT. COUGH IS NEW WITH THE SOB HPI/ROS CHIEF COMPLAINT: Shortness of breath HISTORY OF PRESENT ILLNESS: This is a 58-year-old female. She started having shortness breath tonight at 8 PM, sudden onset. Also had a new cough with this, perhaps a little bit of congestion but no significant runny nose or sore throat. No fevers or chills. Denies any chest pain. No nausea or vomiting. 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 Recent reduction in her warfarin dose because she was over-anticoagulated. She does have a little bit of history of pain in the right knee and leg from prior knee surgery, but there is no increased swelling in this area. Denies any trouble with bowel or bladder function. She does use oxygen at nighttime with her CPAP, and felt like this was suffocating her tonight. Allergies: Coded Allergies: erythromycin base (Verified Allergy, Mild, HIVES, 12/28/18) Erythromycin Ophthalmic Oint latex (Verified Allergy, Mild, 12/28/18) codeine (Verified Adverse Reaction, Mild, CAUSES CHEST PAIN, 12/28/18) Home Meds Active Scripts Tramadol Hcl (TRAMADOL HCL) 50 Mg Tablet, 1 TAB PO TID, #10 TAB 0 Refills Prov:AMBREEN PRASAD APRN [employer]-C 12/11/18 Metformin Hcl (METFORMIN HCL ER) 500 Mg Tabcr, 2 TAB PO BID, #120 TAB 1 Refill Prov:IRIS LUONG MD 12/07/18 Escitalopram Oxalate (LEXAPRO) 10 Mg Tab, 3 TAB PO QDAY, #90 TAB 5 Refills Prov:IRIS LUONG MD 11/23/18 Trazodone Hcl (TRAZODONE HCL) 100 Mg Tablet, 2 TAB PO QHS, #60 TAB 5 Refills Prov:IRIS LUONG MD 11/23/18 Sumatriptan Succinate (SUMATRIPTAN SUCCINATE) 100 Mg Tablet, 0.5-1 TAB PO ONCE PRN for MIGRAINE, #6 TAB 5 Refills Prov:IRIS LUONG MD 11/23/18 Furosemide (FUROSEMIDE) 40 Mg Tablet, 1 TAB PO DAILY, #30 TAB 5 Refills Prov:IRIS LUONG MD 11/02/18 Potassium Chloride (POTASSIUM CHLORIDE) 20 Meq Tab.er.prt, 1 TAB PO BID, #60 TAB 11 Refills Prov:IRIS LUONG MD 09/05/18 One Touch Ultra Test Strips (ONE TOUCH ULTRA TEST STRIPS) 1 Each Strip, 50 EACH MC Q30D, #100 STRIP 5 Refills use to test BS twice daily Prov:IRIS LUNOG MD 06/06/18 Simvastatin (SIMVASTATIN) 20 Mg Tablet, 1 TAB PO HS, #30 TAB 12 Refills Prov:IRIS LUONG MD 05/22/18 Blood-Glucose Meter (BLOOD-GLUCOSE METER) 1 Each Kit, KIT MC ONCE, #1 11 Refills One touch Ultra Prov:IRIS LUONG MD 04/06/18 Warfarin Sodium (WARFARIN SODIUM) 5 Mg Tablet, 1 TAB PO QDAY, #30 TAB 11 Refills Take one tablet daily or as instructed based on INR Prov:IRIS LUONG MD 03/29/18 Lancets (LANCETS ULTRA THIN) 1 Each Each, EACH MC Q30D, #100 12 Refills Prov:IRIS LUONG MD 05/11/17 Reported Medications Bacitracin/Polymyxin B Sulfate (BACITRACIN-POLYMYXIN EYE OINT) Unknown Strength Oint...g., OP HS 11/29/18 Oxygen (OXYGEN) Inha, 3 L INH HS with C-PAP 10/25/18 Cpap (CPAP HOME) Inha, HS 9 cm H2O pressure, with oxygen 3 liters 01/07/16 Reviewed Nurses Notes: Yes Hx Smoking: No Smoking Status: Never Smoker Exposure to Second Hand Smoke?: Yes Hx Substance Use Disorder: No Hx Alcohol Use: No Constitutional Vital Sign - Last 24 Hours 12/28/18 12/28/18 12/28/18 12/28/18 21:15 21:15 21:15 21:19 Temp 97.8 Pulse 79 79 Resp 22 B/P (MAP) 123/83 (96) 123/83 Pulse Ox 82 82 89 O2 Delivery Room Air Room Air 12/28/18 12/28/18 12/28/18 12/28/18 21:21 21:24 21:29 21:30 Pulse 78 78 B/P (MAP) 132/71 (91) Pulse Ox 92 91 O2 Flow Rate 4.0 12/28/18 12/28/18 12/28/18 12/28/18 21:34 21:39 21:44 21:49 Pulse 78 78 76 78 Pulse Ox 91 93 92 94 12/28/18 12/28/18 12/28/18 12/28/18 21:54 21:59 22:04 22:09 Pulse 75 79 75 ??? B/P (MAP) 114/58 (76) Pulse Ox 93 92 93 12/28/18 12/28/18 12/28/18 12/28/18 22:14 22:19 22:24 22:28 Pulse ? B/P (MAP) 109/70 (83) 12/28/18 12/28/18 12/28/18 12/28/18 22:29 22:30 22:34 22:39 Pulse 73 74 69 B/P (MAP) 115/67 (83) Pulse Ox 94 95 95 12/28/18 12/28/18 12/28/18 12/28/18 22:44 22:49 22:54 22:59 Pulse 76 68 68 72 Pulse Ox 94 94 95 89 12/28/18 12/28/18 12/28/18 23:00 23:04 23:09 Pulse 68 68 B/P (MAP) 120/51 (74) Pulse Ox 93 95 Physical Exam General Appearance: The patient is alert. No acute distress. Non-toxic in appearance. Eyes: Pupils are equal, round. No pallor, injection or icterus. ENT: Mucous membranes are moist. Normal oral mucosa. Posterior oropharynx is normal. Neck: Supple and non tender. Respiratory: Lungs are clear to auscultation. There are no retractions or accessory muscle use. Cardiovascular: Really mild tachycardia, regular rhythm. No murmurs, gallops or rubs. Normal capillary refill. Trace edema bilateral ankles. Gastrointestinal: Abdomen is soft and non tender. Nondistended. Normal active bowel sounds. Neurological: Alert and oriented x3. No focal neurologic deficit Skin: Warm and dry. Musculoskeletal: Extremities are nontender. DIFFERENTIAL DIAGNOSIS: After history and physical exam, differential diagnosis was considered for shortness of breath including but not limited to pulmonary infectious process, reactive airway disease pulmonary embolus and congestive heart failure. Medical Decision Making Data Points Result Diagram: 12/28/18213812/28/182138 Laboratory Hematology Test 12/28/18 21:39 Red Blood Count 4.86 M/uL (4.17-5.56) Mean Corpuscular Volume 89.8 fL (80.0-96.0) Mean Corpuscular Hemoglobin 30.2 pg (26.0-33.0) Mean Corpuscular Hemoglobin Concent 33.7 g/dL (32.0-36.0) Red Cell Distribution Width 14.7 % (11.5-14.5) Mean Platelet Volume 7.9 fL (7.2-11.1) Neutrophils (%) (Auto) 57.8 % (39.4-72.5) Lymphocytes (%) (Auto) 30.0 % (17.6-49.6) Monocytes (%) (Auto) 8.7 % (4.1-12.4) Eosinophils (%) (Auto) 2.3 % (0.4-6.7) Basophils (%) (Auto) 1.2 % (0.3-1.4) Nucleated RBC Relative Count (auto) 0.0 /100WBC Neutrophils # (Auto) 4.6 K/uL (2.0-7.4) Lymphocytes # (Auto) 2.4 K/uL (1.3-3.6) Monocytes # (Auto) 0.7 K/uL (0.3-1.0) Eosinophils # (Auto) 0.2 K/uL (0.0-0.5) Basophils # (Auto) 0.1 K/uL (0.0-0.1) Nucleated RBC Absolute Count (auto) 0.00 K/uL Prothrombin Time 31.4 seconds (12.0-14.4) Prothromb Time International Ratio 2.95 Activated Partial Thromboplast Time 42 seconds (23-35) Sodium Level 136 mmol/L (137-145) Potassium Level 3.7 mmol/L (3.5-5.0) Chloride Level 101 mmol/L (98-107) Carbon Dioxide Level 27 mmol/L (22-31) Blood Urea Nitrogen 19 mg/dl (7-18) Creatinine 0.80 mg/dl (0.52-1.04) Glomerular Filtration Rate Calc > 60.0 Random Glucose 107 mg/dl (75-110) Calcium Level 9.2 mg/dl (8.4-10.2) Total Bilirubin 0.2 mg/dl (0.2-1.3) Aspartate Amino Transf (AST/SGOT) 18 U/L (0-35) Alanine Aminotransferase (ALT/SGPT) 24 U/L (0-56) Alkaline Phosphatase 47 U/L (0-126) Troponin I < 0.012 ng/ml Total Protein 6.8 g/dl (6.3-8.2) Albumin 4.0 g/dl (3.5-5.0) Influenza Virus Type A (PCR) Negative (NEGATIVE) Influenza Virus Type B (PCR) Negative (NEGATIVE) Chemistry Test 12/28/18 21:39 White Blood Count 8.0 k/uL (4.5-11.0) Red Blood Count 4.86 M/uL (4.17-5.56) Hemoglobin 14.7 g/dL (12.0-16.0) Hematocrit 43.6 % (34.0-47.0) Mean Corpuscular Volume 89.8 fL (80.0-96.0) Mean Corpuscular Hemoglobin 30.2 pg (26.0-33.0) Mean Corpuscular Hemoglobin Concent 33.7 g/dL (32.0-36.0) Red Cell Distribution Width 14.7 % (11.5-14.5) Platelet Count 241 K/uL (150-450) Mean Platelet Volume 7.9 fL (7.2-11.1) Neutrophils (%) (Auto) 57.8 % (39.4-72.5) Lymphocytes (%) (Auto) 30.0 % (17.6-49.6) Monocytes (%) (Auto) 8.7 % (4.1-12.4) Eosinophils (%) (Auto) 2.3 % (0.4-6.7) Basophils (%) (Auto) 1.2 % (0.3-1.4) Nucleated RBC Relative Count (auto) 0.0 /100WBC Neutrophils # (Auto) 4.6 K/uL (2.0-7.4) Lymphocytes # (Auto) 2.4 K/uL (1.3-3.6) Monocytes # (Auto) 0.7 K/uL (0.3-1.0) Eosinophils # (Auto) 0.2 K/uL (0.0-0.5) Basophils # (Auto) 0.1 K/uL (0.0-0.1) Nucleated RBC Absolute Count (auto) 0.00 K/uL Prothrombin Time 31.4 seconds (12.0-14.4) Prothromb Time International Ratio 2.95 Activated Partial Thromboplast Time 42 seconds (23-35) Glomerular Filtration Rate Calc > 60.0 Calcium Level 9.2 mg/dl (8.4-10.2) Total Bilirubin 0.2 mg/dl (0.2-1.3) Aspartate Amino Transf (AST/SGOT) 18 U/L (0-35) Alanine Aminotransferase (ALT/SGPT) 24 U/L (0-56) Alkaline Phosphatase 47 U/L (0-126) Troponin I < 0.012 ng/ml Total Protein 6.8 g/dl (6.3-8.2) Albumin 4.0 g/dl (3.5-5.0) Influenza Virus Type A (PCR) Negative (NEGATIVE) Influenza Virus Type B (PCR) Negative (NEGATIVE) Coagulation Test 12/28/18 21:39 Prothrombin Time 31.4 seconds Prothromb Time International Ratio 2.95 Activated Partial Thromboplast Time 42 seconds EKG/Imaging EKG Interpretation 12 lead EKG: Rhythm: Normal sinus rhythm, rate 76 [place]: normal QRS: normal, no Q waves ST segments: Nonspecific T-wave flattening, no ST elevation or depression Compared to past EKGs, there is no acute change. Imaging CT angiogram chest with contrast Indication: Short of breath. Comparison: 07/26/2018. Technique: Axial CT images are obtained through the chest after administration of 75 mL Isovue 370 IV contrast. Reformatted coronal and sagittal images were reviewed as well as coronal MIP images. One of the following dose optimization techniques was utilized in the performance of this exam: automated exposure control; adjustment of the mA and/or kV according to the patient's size; or use of an iterative reconstruction technique. Specific details can be referenced in the facility's radiology CT exam operational policy. FINDINGS: No evidence of filling defect within the pulmonary vasculature to suggest pulmonary embolus. Heart is normal size without pericardial effusion. The aorta shows no aneurysm or dissection. Mediastinum and hilar regions show no enlarged lymph nodes or abnormal density. Lungs show no consolidation, pleural effusion or pneumothorax. There is a tiny calcified granuloma in the right lung. No other nodules. No focal interstitial opacities. Airways are clear. Bony structures show no acute fractures or aggressive bony lesions. Chest wall shows no enlarged axillary lymph nodes or masses. Mild degenerative change seen spine. Limited views of the upper abdomen are unremarkable. IMPRESSION: 1. No evidence of pulmonary embolus. 2. No acute cardiothoracic abnormality Report Dictated By: Abiodun Lopes at 12/28/2018 10:24 PM ED Course/Re-evaluation Clinical Indication for ER IV: IV Access ED Course Influenza is negative. Labs unremarkable. CT angiogram was done and negative for PE or other cardiopulmonary process. Reviewed all this with the patient. Her INR is in the therapeutic range at 2.95. She feels better on oxygen. Desaturation to 82% on room air trial. Recommend continuous oxygen for now and follow-up with PCP and pulmonology. Uncertain cause of the acute hypoxia with no acute findings on evaluation tonight. Symptoms certainly could be new onset of the infectious process such as a viral upper respiratory infection with the new cough but no sign of pneumonia at this point. Decision to Disposition Date: Dec 28, 2018 Decision to Disposition Time: 23:03 Depart Departure Latest Vital Signs Vital Signs Date Time Temp Pulse Resp B/P (MAP) Pulse Ox O2 Delivery O2 Flow Rate FiO2 12/28/18 23:09 68 95 12/28/18 23:00 120/51 (74) 12/28/18 21:21 4.0 12/28/18 21:15 Room Air 12/28/18 21:15 97.8 22 Impression: Primary Impression: Acute dyspnea Additional Impressions: Hypoxia Upper respiratory infection Condition: Improved Disposition: HOME OR SELF-CARE Referrals: AMBREEN PRASAD APRN [employer] PROFESSOR-C (PCP) Departure Forms: Home Oxygen, Nebulizer RX Home Oxygen Company Chosen by Patient: [employer] Durable Medical Equipment-Oxygen: Oxygen Concentrator, Portable Oxygen Gas Reason for Use/Diagnosis: Hypoxia, acute dyspnea, upper respiratory infection Start Date of the Order: Dec 28, 2018 Dosage or Concentration (if applicable) - LPM: 2 Route of Administration (if applicable): Nasal Cannula Frequency of Use: Continuous Duration Home O2 Required: 6 Duration Units: Weeks Room Air Oxygen Saturation: 82 ER Prescribing Physician's Name: Arpita Hamilton NPI Numbers for Local ER MDs: Alfonso [id number] Patient Instructions: Dyspnea (ED), Hypoxia (ED) Additional Instructions: We did not find an exact cause for shortness of breath and low oxygen levels tonight in the ER. There is no sign of pneumonia, heart failure, heart attack, or blood clot in the lungs. With the new cough this could be an early viral upper respiratory infection or an early pneumonia. Return to the ER for worsening symptoms of shortness of breath, fevers or chills, or worsening cough. We recommend follow-up with your primary care provider for reevaluation either tomorrow or early next week. We recommend continuous oxygen therapy until further evaluation and follow-up can be performed. Problem Qualifiers Additional Impressions: Upper respiratory infection URI type: unspecified URI Qualified Codes: J06.9 - Acute upper respiratory infection, unspecified ARPITA HAMILTON MD Dec 28, 2018 21:23
[2018-12-28] MEDS ORDERED: IOPAMIDOL 76% 150 ML INFUS BTL 150 ML ONE ×2 (21:39→22:36)
[2018-12-28] MEDS ORDERED: NS 0.9% 25 ML BAG 50 ML ONE (21:39)
[2018-12-28 21:48] LABS: PLATELET COUNT, AUTOMATED 241 K/uL (150-450)
--- NOTE | 2018-12-28 21:53 | EKG ---
FACILITY: [facility] PATIENT NAME: MIRYAM EASON : [id number] MR: [id number] V: [id number] EXAM DATE: ORDERING PHYSICIAN: ARPITA SHERMAN TECHNOLOGIST: RANI Tovar Reason : SOB Blood Pressure : / mmHG Vent. Rate : 076 BPM Atrial Rate : 076 BPM P-R Int : 144 ms QRS Dur : 082 ms QT Int : 406 ms P-R-T Axes : 046 082 -87 degrees QTc Int : [address]-T findings inferolateral leads Similar, but slightly more prominent than previous Confirmed by PEBBLES KERR ([id number]) on 12/29/2018 5:30:19 AM Referred By: Confirmed By:PEBBLES KERR
[2018-12-28 21:58] LABS: INR 2.95
--- NOTE | 2018-12-28 22:41 | RADIOLOGY IMAGING REPORT ---
FACILITY: [facility] PATIENT NAME: Ana Lion : 1960 MR: [id number] V: [id number] EXAM DATE: ORDERING PHYSICIAN: ARPITA SHERMAN TECHNOLOGIST: Location: [facility] [place] Patient: Ana Lion : 1960 Visit/Account:[id number] Date of Sevice: 12/28/2018 CT angiogram chest with contrast Indication: Short of breath. Comparison: 07/26/2018. Technique: Axial CT images are obtained through the chest after administration of 75 mL Isovue 370 IV contrast. Reformatted coronal and sagittal images were reviewed as well as coronal MIP images. One of the following dose optimization techniques was utilized in the performance of this exam: auto mated exposure control; adjustment of the mA and/or kV according to the patient's size; or use of an iterative reconstruction technique. Specific details can be referenced in the facility's radiology C T exam operational policy. FINDINGS: No evidence of filling defect within the pulmonary vasculature to suggest pulmonary embolus. Heart is normal size without pericardial effusion. The aorta shows no aneurysm or dissection. Mediast inum and hilar regions show no enlarged lymph nodes or abnormal density. Lungs show no consolidation, pleural effusion or pneumothorax. There is a tiny calcified granuloma in the right lung. No other nodules. No focal interstitial opacities. Airways are clear. Bony structures show no acute fractures or aggressive bony lesions. Chest wall shows no enlarged axil heidi lymph nodes or masses. Mild degenerative change seen spine. Limited views of the upper abdomen are unremarkable. IMPRESSION: 1. No evidence of pulmonary embolus. 2. No acute cardiothoracic abnormality Report Dictated By: Abiodun Lopes at 12/28/2018 10:24 PM Report E-Signed By: Abiodun Lopes at 12/28/2018 10:37 PM WSN:[id number]
[2018-12-28 23:00] VITALS: BP 120/51
[2019-01-01] MEDS ORDERED: OSE75 PO (13:22)
== END 2018-12-29 00:08 | disposition home or self-care (01) ==
LOC: ER 21:18
DX: J06.9 Acute upper respiratory infection, unspecified (principal); R06.00 Dyspnea, unspecified; R09.02 Hypoxemia
CPT/HCPCS: 71275; 84484; 85025; 85610; 85730; 87502; 93005; 99284; Q9967; 82040; 82247; 82310; 82374; 82435; 82565; 82947; 84075; 84132; 84155; 84295; 84450; 84460; 84520

== ENCOUNTER → 2019-03-20 | Outpatient (CLI) | payer MEDICAID ==
[2015-09-11 09:32] VITALS: BMI 42.1
[~2019-03-20] MED LIST changes: +OSE75 PO
== END ==
LOC: LAB 07:03
PROVIDERS: ATTEND Nurse Practitioner Family
DX: E11.9 Type 2 diabetes mellitus without complications (principal); I10 Essential (primary) hypertension
CPT/HCPCS: 36415; 82040; 82247; 82310; 82374; 82435; 82565; 82947; 83036; 84075; 84132; 84155; 84295; 84443; 84450; 84460; 84520

== ENCOUNTER 2019-04-02 03:52 | Inpatient (IN) | payer MEDICAID ==
[2019-02-22 08:35] LABS: PLATELET COUNT, AUTOMATED 233 K/uL (150-450)
[2019-04-01 13:10] LABS: INR 1.17
[~2019-04-02] VITALS: Ht 170.2 cm; Wt 109.3 kg
[2019-04-02] VITALS (18 sets, daily range): BP systolic 95–136; BP diastolic 57–76
[~2019-04-02 03:52] MED LIST changes: +ENOX40DI9 SQ
[2019-04-02] MEDS ORDERED: LIDOCAINE MPF 1% 5 ML VIAL ONE (08:00)
[2019-04-02] MEDS ORDERED: PROPOFOL EMUL(*) 10MG/ML 20 ML 40 ML ONE (08:00)
[2019-04-02] MEDS ORDERED: ONDANSETRON 4 MG/2 ML VIAL ONE (08:00)
[2019-04-02] MEDS ORDERED: METOCLOPRAMIDE 10 MG/2 ML SDV ONE (08:00)
[2019-04-02] MEDS ORDERED: fentaNYL CITR 250 MCG/5 ML AMP ONE (08:00)
[2019-04-02] MEDS ORDERED: DEXAMETHASONE SOD 4 MG/ML VIAL ONE (08:00)
[2019-04-02] MEDS ORDERED: ROPIVACAINE 0.2% 20 ML VIAL ONE (08:14)
[2019-04-02] MEDS ORDERED: KETAMINE HCL 200 MG/20 ML MDV ONE (08:32)
[2019-04-02] MEDS ORDERED: TRANEXAMIC AC 1000 MG/10ML SDV 1,000 MG in DEXTROSE 5% 50 ML BAG 50 ML IV ONE (08:45)
[2019-04-02] MEDS ORDERED: MIDAZOLAM 2 MG/2 ML VIAL IVP PRN (08:45)
[2019-04-02] MEDS ORDERED: NORMOSOL R SOLN(*) 1000 ML BAG 1,000 ML IV PRN ×2 (08:45→12:40)
[2019-04-02] MEDS ORDERED: ceFAZolin(*) 2GM/D5W 50ML 50 ML IVPB ONE (08:45)
[2019-04-02] MEDS ORDERED: ACETAMINOPHEN 500 MG TAB PO ONE (08:45)
[2019-04-02] MEDS ORDERED: PREGABALIN 150 MG CAPSULE PO ONE (08:45)
[2019-04-02] MEDS ORDERED: CELECOXIB 200 MG CAP PO ONE (08:45)
[2019-04-02] MEDS ORDERED: FAMOTIDINE 20 MG TAB PO ONE (08:45)
[2019-04-02] MEDS ORDERED: ROPIVACAINE 0.2% 400 MG/200ML 250 ML CONINFUS ONE (08:45)
[2019-04-02] MEDS ORDERED: LIDOCAINE/SOD BICARB 8.4% SYR ID ONE (08:45)
[2019-04-02] MEDS ORDERED: ROPIVACAINE/EPI/CLONIDINE/KET 50 ML SYRINGE INJ ONE (08:45)
[2019-04-02] MEDS ORDERED: fentaNYL CITR 100 MCG/2 ML AMP ONE ×2 (12:06→12:31)
[2019-04-02] MEDS ORDERED: ZOLPIDEM TARTRATE 5 MG TAB PO PRN (12:40)
[2019-04-02] MEDS ORDERED: BISACODYL 10 MG SUPP PR PRN (12:40)
[2019-04-02] MEDS ORDERED: MORPHINE 4 MG/ML SDV IVP PRN (12:40)
[2019-04-02] MEDS ORDERED: ONDANSETRON 4 MG/2 ML VIAL IVP PRN (12:40)
[2019-04-02] MEDS ORDERED: FLUSH 10 ML SYR IVP PRN (12:40)
[2019-04-02] MEDS ORDERED: PROMETHAZINE 25 MG/ML 1 ML AMP IVP PRN (12:40)
[2019-04-02] MEDS ORDERED: MAGNESIUM HYDROXIDE* 30ML UDCP PO PRN (12:40)
--- NOTE | 2019-04-02 13:19 | RADIOLOGY IMAGING REPORT ---
FACILITY: [facility] PATIENT NAME: Ana Lion : 1960 MR: [id number] V: [id number] EXAM DATE: ORDERING PHYSICIAN: FRANK BOTELLO TECHNOLOGIST: Location: [facility] [place] Patient: Ana Lion : 1960 Visit/Account:[id number] Date of Sevice: 04/02/2019 Right knee Indication: Postop Comparison: None available Findings: Anatomic alignment status post total knee arthroplasty with expected soft tissue changes. IMPRESSION: 1. Expected appearance status post right total knee arthroplasty Report Dictated By: Alireza Magana MD at 04/02/2019 1:12 PM Report E-Signed By: Alireza Magana MD at 04/02/2019 1:13 PM WSN:[id number]
--- NOTE | 2019-04-02 13:42 | OPERATIVE REPORT 1 ---
EVENT DATE: April 02, 2019 SURGEON: Shiva Rachel MD ANESTHESIOLOGIST: Ant Caraballo MD ANESTHESIA: Right adductor canal block followed by general. THREAD ROLLER: Mitchell Nugent PA-C PREOPERATIVE DIAGNOSIS Right knee degenerative joint disease. POSTOPERATIVE DIAGNOSIS Right knee degenerative joint disease. PROCEDURE PERFORMED Right total knee arthroplasty. ESTIMATED BLOOD LOSS 200 to 300 cc. SPECIMENS None. COMPLICATIONS None. IMPLANTS USED MicroPort medial pivot CS-system with a 3 femur, 3 tibia, 12 mm CS insert, 8 x 32 symmetric patella, femur cut 6-degrees valgus, 10 mm. I also utilized 2 packages of [employer] [place] Blue cement, a ZipLine wound closure system and 50 cc of standard Toradol/ropivacaine cocktail. DESCRIPTION OF PROCEDURE The patient received appropriate perioperative antibiotics and was brought to the operating room where Dr. Caraballo performed right adductor canal block with indwelling catheter, followed by general anesthesia. The right thigh tourniquet was placed but was not utilized. The right lower extremity prepped and draped in the usual sterile fashion. A midline incision was made by a media parapatellar arthrotomy. We achieved hemostasis as we went with Bovie. A significant depth of fatty tissue was noted which did slow us down with our dissection. We made a medial parapatellar arthrotomy. We released the patella, made a pocket everted and brought the knee up into flexion. We noted high-grade changes in the patellofemoral compartment and moderate in the medial compartment. ACL and PCL were released subperiosteal by Bovie. The remaining articular cartilage was removed by sagittal saw from the distal femoral condyles and then we utilized the step-cut drill to broach the canal and then placed our intramedullary femoral distal cutting guide. We set the block up at 10 mm, 6- degrees valgus with care taken to protect the soft tissues and made our cut. Appropriate retractors were then placed and the knee brought up into hyperflexion and utilized the 3-degree external rotation sizing guide, referencing off the anterior flange, epicondyles, posterior condyles to size the femur to a #3. We placed our four-in-one cutting block, Z-retractors, and made our four cuts. The tibia was then brought anteriorly in the femur with appropriate retractors and step-cut drill utilized to broach the tibial canal and then we placed our intramedullary tibial guide. We referenced for a 10 mm cut off the most least involved lateral tibial plateau referenced for the rotation, pinned the block into place, and then make our cut with care taken to protective the soft tissues. This was sized to a #3. The stump of the ACL, PCL, medial and lateral meniscus were then removed by Gael. We then brought with appropriate retractors, placed our tibial baseplate trial referencing from the previous rotation and pinned this into place. We stared with a 10 and moving up a 12 mm insert. We then placed our # femur and achieved full extension with about 5-degrees of recurvatum where she had 15 to 20-degrees of recurvatum perioperatively. She was stable through varus and valgus stress and at 90- degrees we had end point and anterior drawer. I then brought the knee into full extension, sized the patella to 20 mm and utilized the 6 mm cutting guide to make our patella cut and a peg-hole guide positioning inferomedially. The peg hole was drilled for an 8 x 32 symmetric patella. We then drilled the holes for our femoral pegs, placed these, cut for trochlear chip, placed these. Again, we had the aforementioned range of motion of 0 to +5-degrees extension, about 120- degrees of flexion limited by body habitus, stability to varus and valgus stress, solid end point and anterior anterior drawer, and the patella tracked well. The patella, femur, and tibial insert were removed. Appropriate retractors were placed to bring the tibial baseplate into view and we placed our tibial tower and the tibia was cut, reamed and punched for our keel. Instrumentation was removed and bone plug placed in the distal femur. The knee brought into full extension. We copiously irrigated by pulse lavage while we mixed 2 packages of [employer]Joy [place] Blue cement. We then injected 10 cc of our cocktail in the posterior capsule, placed the knee into appropriate position and starting with the tibia, this was cemented into place, 12 mm inserted, then the femur, excess cement was removed and the knee brought into full extension with axial compression while we cemented the patella. It took approximately 11 minutes for the cement to cure. Again, we had the aforementioned range of motion and stability. I copiously irrigated one more time. While we were waiting for the cement to cure, we had injected the remaining 4 cc of the cocktail in the distal quad mechanism. Placed the knee at 30-degrees, closed the arthrotomy with #2 Vicryl in a [id number] suture fashion, followed by 2-0 Vicryl for the subcutaneous tissues. We placed the knee at 45-degrees. The wound was cleaned. The ZipLine wound closure system applied and a compressive dressing. The patient was extubated and taken to recovery in stable condition. The hospitalist team will be consulted for medical management and anticoagulation. PT for rehab. IRVING
[2019-04-02] MEDS ORDERED: WARF5TAB23 PO ×2 (13:54)
[2019-04-02] MEDS: oxyCODONE HCL 5 MG CAP PO PRN ×2 (14:23→20:36)
[2019-04-02] MEDS ORDERED: INSULIN HUM LISPRO 100 UN/ML 3 ML VIAL SUBQ PRN (14:35)
--- NOTE | 2019-04-02 14:58 | Hospitalist Consultation ---
History of Present Illness Requesting Physician Dr. Rachel Reason for Consult Medical management of comorbidities Chief Complaint s/p right knee replacement History of Present Illness She was admitted s/p right knee replacement. It is reported the surgery went well and without complication. History Problems: (1) Type 2 diabetes mellitus Status: Chronic (2) Depression Status: Chronic (3) Essential hypertension Status: Chronic (4) CVA (cerebral infarction) Status: Chronic (5) Acute deep vein thrombosis of lower extremity Status: Resolved (6) Mixed hyperlipidemia Status: Chronic Home Meds Active Scripts Metformin Hcl (METFORMIN HCL ER) 500 Mg Tabcr, 1 TAB PO BID, #60 TAB 5 Refills Prov:AMBREEN PRASAD APRN MILLINER HELPER-C 03/20/19 Escitalopram Oxalate (LEXAPRO) 10 Mg Tab, 3 TAB PO QDAY, #90 TAB 5 Refills Prov:IRIS LUONG MD 11/23/18 Trazodone Hcl (TRAZODONE HCL) 100 Mg Tablet, 2 TAB PO QHS, #60 TAB 5 Refills Prov:IRIS LUONG MD 11/23/18 Sumatriptan Succinate (SUMATRIPTAN SUCCINATE) 100 Mg Tablet, 0.5-1 TAB PO ONCE PRN for MIGRAINE, #6 TAB 5 Refills Prov:IRIS LUONG MD 11/23/18 Furosemide (FUROSEMIDE) 40 Mg Tablet, 1 TAB PO DAILY, #30 TAB 5 Refills Prov:IRIS LUONG MD 11/02/18 Potassium Chloride (POTASSIUM CHLORIDE) 20 Meq Tab.er.prt, 1 TAB PO BID, #60 TAB 11 Refills Prov:IRIS LUONG MD 09/05/18 One Touch Ultra Test Strips (ONE TOUCH ULTRA TEST STRIPS) 1 Each Strip, 50 EACH MC Q30D, #100 STRIP 5 Refills use to test BS twice daily Prov:IRIS LUONG MD 06/06/18 Simvastatin (SIMVASTATIN) 20 Mg Tablet, 1 TAB PO HS, #30 TAB 12 Refills Prov:IRIS LUONG MD 05/22/18 Blood-Glucose Meter (BLOOD-GLUCOSE METER) 1 Each Kit, KIT MC ONCE, #1 11 Refills One touch Ultra Prov:IRIS LUONG MD 04/06/18 Lancets (LANCETS ULTRA THIN) 1 Each Each, EACH MC Q30D, #100 12 Refills Prov:IRIS LUONG MD 05/11/17 Reported Medications Warfarin Sodium (WARFARIN SODIUM) 5 Mg Tablet, 7.5 MG PO 3XW, TAB Tuesday, Tuesday, Tuesday04/02/19 Warfarin Sodium (WARFARIN SODIUM) 5 Mg Tablet, 5 MG PO DAILY, TAB Tuesday, Tuesday, , Tuesday04/02/19 Oxygen (OXYGEN) Inha, 3 L INH HS with C-PAP 10/25/18 Cpap (CPAP HOME) Inha, HS 9 cm H2O pressure, with oxygen 3 liters 01/07/16 Discontinued Reported Medications Bacitracin/Polymyxin B Sulfate (BACITRACIN-POLYMYXIN EYE OINT) Unknown Strength Oint...g., OP HS 11/29/18 Discontinued Scripts Enoxaparin Sodium (ENOXAPARIN SODIUM) 40 Mg/0.4 Ml Disp.syrin, 40 MG SQ QDAY for 2 Days, #2 SYR 0 Refills Inject once daily prior to surgery as instructed. Prov:MICHAEL WELLINGTON PHARMD 03/28/19 Warfarin Sodium (WARFARIN SODIUM) 5 Mg Tablet, 1 TAB PO QDAY, #30 TAB 5 Refills Take one tablet daily or as instructed based on INR Prov:AMBREEN PRASAD APRN-Torrie 02/08/19 Allergies: Coded Allergies: erythromycin base (Verified Allergy, Mild, HIVES, 12/28/18) Erythromycin Ophthalmic Oint latex (Verified Allergy, Mild, 12/28/18) codeine (Verified Adverse Reaction, Mild, CAUSES CHEST PAIN, 12/28/18) Patient History: FH: alcoholism FATHER, , Age:46 SISTER, Age:57 FH: cancer (Lung) MOTHER, , Age:42 FH: throat cancer MOTHER, , Age:42 Hx Smoking: No Smoking Status: Never Smoker Exposure to Second Hand Smoke?: Yes (CHILDHOOD AND CURRENTLY) Caffeine Intake: Coffee, Tea, Soda Caffeine/Cups Per Day: 1-2 PER DAY Hx Alcohol Use: No Hx Substance Use Disorder: No Social Drug Use: Never Review of Systems All Systems Reviewed/Normal: Yes, Except as Noted Exam Vital Signs Vital Signs Date Time Temp Pulse Resp B/P (MAP) Pulse Ox O2 Delivery O2 Flow Rate FiO2 04/02/19 13:33 97.6 85 16 119/60 (79) 92 Nasal Cannula 3.0 General Appearance: No Acute Distress, Other (sleeping throughout exam) Cardiovascular: Regular Rate and Rhythm Respiratory: No Respiratory Distress, Clear to Auscultation Assessment and Plan Problems: (1) Status post right knee replacement Status: Acute Assessment & Plan: She has history of DVT. She will resume her usual Warfarin dose 04/02. She will start Lovenox bridge 04/03. (2) Type 2 diabetes mellitus Status: Chronic Assessment & Plan: Continue chronic Metformin. She will be also be placed on SS insulin #2, AC/ HS blood glucose monitoring and ADA diet. (3) Depression Status: Chronic Assessment & Plan: Continue chronic Lexapro. (4) Essential hypertension Status: Chronic Assessment & Plan: She is on chronic treatment with Lasix. This will be held for now. Continue to monitor blood pressures. (5) CVA (cerebral infarction) Status: Chronic Assessment & Plan: In 2008. Left leg deficit. Could prolong rehab from knee replacement. (6) Acute deep vein thrombosis of lower extremity Status: Resolved Assessment & Plan: On warfarin chronically. See above plan. Venous Thromboembolism Antithrombotics Is Pt On Any Antithrombotics?: Yes Exam Sepsis Risk: No Definite Risk NENITA HAQUE MILLINER HELPER Apr 02, 2019 14:58
--- NOTE | 2019-04-02 15:57 | NUR ---
Physical Therapy Impression PT eval complete. Pt able to stand EOB and ambulate via side stepping, but limited primarily by reports of 8/10 pain. Lakhwinder provided for sit<>supine transfer to assist with surgical leg. Pt performed sit<>stand transfer with CGAx1 and use of RW. Pt able to ambulate 5 ft through side stepping at EOB. CGAx1 and RW required for ambulation. Pt primarily limited by pain. Following session, Pt left with CPM on from 0-30 degrees. Pt would benefit from further skilled PT care to ensure safe ambulation and educate on stair negotiation. Physical Therapy Goals 1. Fernandez bed mobility 2. Fernandez sit to stand transfers 3. Fernandez ambulation of 150 ft with use of least restrictive device 4. Fernandez ability to ascend/descend 1 stair 5. Mod I use of CPM. Patient's Goals Addendum: 04/02/19 at 1558 by GLENNY ESPINO PT Amended: Links added.
[2019-04-02] MEDS: ACETAMINOPHEN 500 MG TAB PO SCH (17:13)
[2019-04-02] MEDS: ceFAZolin(*) 2GM/D5W 50ML 50 ML IVPB SCH (18:09)
[2019-04-02] MEDS ORDERED: NS(*) 0.9% 250 ML BAG 250 ML ONE (18:15)
[2019-04-02] MEDS: traMADol 50 MG TAB PO PRN (18:27)
[2019-04-02] MEDS: SIMVASTATIN 20 MG TAB PO SCH (20:36)
[2019-04-02] MEDS ORDERED: WARFARIN SOD 7.5 MG TAB PO ONE (21:00)
[2019-04-03] VITALS (7 sets, daily range): BP systolic 91–126; BP diastolic 54–82; Ht 170.2 cm; Wt 109.3 kg
[2019-04-03] MEDS: ceFAZolin(*) 2GM/D5W 50ML 50 ML IVPB SCH ×2 (01:34→09:55)
[2019-04-03] MEDS: ACETAMINOPHEN 500 MG TAB PO SCH ×3 (01:34→17:25)
[2019-04-03] MEDS: oxyCODONE HCL 5 MG CAP PO PRN ×4 (05:50→19:48)
[2019-04-03] MEDS ORDERED: diphenhydrAMINE 25 MG CAP PO PRN (07:10)
[2019-04-03] MEDS: traMADol 50 MG TAB PO PRN ×3 (07:56→20:58)
[2019-04-03] MEDS: metFORMIN HCL XR 500 MG TABCR PO SCH ×2 (09:05→20:52)
[2019-04-03] MEDS: WARFARIN SOD 5 MG TAB PO SCH (09:06)
[2019-04-03] MEDS: ESCITALOPRAM OXALATE 10 MG TAB PO SCH (09:06)
[2019-04-03] MEDS: ENOXAPARIN 40 MG/0.4ML SYR SC SCH (09:27)
--- NOTE | 2019-04-03 11:40 | Hospitalist Progress Note ---
Subjective Progress Notes Subjective She was admitted s/p knee replacement. She had no acute events overnight. Patient Complains of: Cardiovascular: No: Chest Pain Respiratory: No: Shortness of Breath Physical Exam Vital Signs Date Time Temp Pulse Resp B/P (MAP) Pulse Ox O2 Delivery O2 Flow Rate FiO2 04/03/19 10:53 98.1 71 14 105/62 (76) 95 Nasal Cannula 1.0 Intake and Output 04/03/19 01:02 Intake Total 2400 ml Output Total 275 ml Balance 2125 ml Intake Oral 0 ml IV Total 2400 ml Output Estimated Blood Loss 275 ml # Voids 3 General Appearance: Alert, Awake, No Acute Distress, Afebrile Neuro: No Gross deficits Cardiovascular: Regular Rate and Rhythm Respiratory: No Respiratory Distress, Clear to Auscultation GI: Soft and Non-Tender Psych: Alert & Oriented X3, Appropriate Mood & Affect Assessment and Plan Problems: (1) Status post right knee replacement Status: Acute Assessment & Plan: She has history of DVT. She will resume her usual Warfarin dose 04/02. She will start Lovenox bridge 04/03. (2) Type 2 diabetes mellitus Status: Chronic Assessment & Plan: Continue chronic Metformin. She will be also be placed on SS insulin #2, AC/ HS blood glucose monitoring and ADA diet. (3) Depression Status: Chronic Assessment & Plan: Continue chronic Lexapro. (4) Essential hypertension Status: Chronic Assessment & Plan: She is on chronic treatment with Lasix. This will be held for now. Continue to monitor blood pressures. (5) CVA (cerebral infarction) Status: Chronic Assessment & Plan: In 2008. Left leg deficit. Could prolong rehab from knee replacement. (6) Acute deep vein thrombosis of lower extremity Status: Resolved Assessment & Plan: On warfarin chronically. See above plan. Exam Sepsis Risk: No Definite Risk NENITA HAQUE BUSINESS SERVICES MANAGER Apr 03, 2019 11:40
[2019-04-03] MEDS ORDERED: WARFARIN SOD 5 MG TAB PO SCH (13:00)
--- NOTE | 2019-04-03 14:47 | NUR ---
Physical Therapy Impression Bed mobility min A. STS CGA. Patient instructed in gait training with FWW CGA and min A for portable oxygen tank. Patient ambulated 44 feet with step to gait with max cuing for weight shift and to increase step length to get to an even step length. Patient needed several standing rest breaks with ambulation. Patient needed min A to get back to bed. Patient left on CPM with ice rails up PCD on and CPM on. Recommended sub acute care. Physical Therapy Goals 1. Fernandez bed mobility 2. Fernandez sit to stand transfers 3. Fernandez ambulation of 150 ft with use of least restrictive device 4. Fernandez ability to ascend/descend 1 stair 5. Mod I use of CPM. Patient's Goals
--- NOTE | 2019-04-03 14:59 | NUR ---
Physical Therapy Impression Pt still demonstrating difficulty ambulating, primarily due to pain reported at 8/. Pt on CPM machine upon arrival, removed for therapy session. Lakhwinder provided for supine to sit transfer, to lift surgical leg. Pt requiring CGAx1 and RW for sit<>stand transfers. Pt able to ambulate 25 ft with CGAx1, RW, and O2. Pt able to reach hallway, but could not ambulate further due to fatigue/pain. Pt primarily limited by pain and difficulty weight bearing or advancing R leg. Ambulation initally done on .5L, SpO2 dropped to 83% and O2 then raised to 2L for remaining of ambulation. Pt left sitting in reclining chair with O2 on 1L, all needs met and call light in reach. Pt would benefit from further skilled PT care to continue to build tolerance to ambulation. Rec Short term sub acute rehab. Physical Therapy Goals 1. Fernandez bed mobility 2. Fernandez sit to stand transfers 3. Fernandez ambulation of 150 ft with use of least restrictive device 4. Fernandez ability to ascend/descend 1 stair 5. Mod I use of CPM. Patient's Goals
--- NOTE | 2019-04-03 15:00 | NUR ---
This Physical Therapist or Cctv Technician was present for the entire physical therapy session directing the services, making the skilled judgement, and was not engaged in treating another patient or doing another task at the same time as the treatment session. Addendum: 04/03/19 at 1500 by GLENNY ESPINO PT Amended: Links added.
--- NOTE | 2019-04-03 15:11 | NUR ---
ECF Referral - Received referral, patient was up in [place] with PT, states she does not feel like she's doing that good and is not ready to go home. Contacted business office and it was clarified by Marylu Morales that she will not require a 3 night stay but she will require a prior authorization. Contacted Steven Polanco and she will look into obtaining this. She has a diagnosis that will trigger an LT101, there is a swing bed available if prior authorization can be obtained.
--- NOTE | 2019-04-03 15:26 | NUR ---
ECF Referral - Follow up completed, patient will require a 3 night inpatient stay and does not require preauthorization.
[2019-04-03] MEDS: SIMVASTATIN 20 MG TAB PO SCH (20:52)
[2019-04-04] MEDS: ACETAMINOPHEN 500 MG TAB PO SCH ×3 (01:01→17:27)
[2019-04-04] MEDS: oxyCODONE HCL 5 MG CAP PO PRN ×5 (01:02→23:42)
[2019-04-04 03:56] VITALS: BP 116/73
[2019-04-04 07:06] VITALS: BP 102/61
--- NOTE | 2019-04-04 07:40 | Hospitalist Progress Note ---
Subjective Progress Notes Subjective Main issue this morning is pain control. She has received ketorolac, morphine and oxyIR with minimal relief. On warfarin chronically and is bridged with lovenox. No INR's ordered as yet. Physical Exam Vital Signs Date Time Temp Pulse Resp B/P (MAP) Pulse Ox O2 Delivery O2 Flow Rate FiO2 04/04/19 07:06 99.3 76 16 102/61 (75) 89 Nasal Cannula 1.0 Intake and Output 04/04/19 07:02 Intake Total 960 ml Balance 960 ml Intake Oral 960 ml # Voids 5 General Appearance: Alert, Awake, No Acute Distress, Afebrile Cardiovascular: Regular Rate and Rhythm Respiratory: Clear to Auscultation Extremities: Soft and Non Tender, Warm, Pulses, Perfused Psych: Alert & Oriented X3, Appropriate Mood & Affect Assessment and Plan Problems: (1) Status post right knee replacement Status: Acute Assessment & Plan: She has history of DVT. Warfarin has been restarted and is bridged with lovenox.., Since no INR ordered thus far, will obtain INR before warfarin dose this morning and check daily. Lovenox will be stopped when INR 2.0 or so. (2) Type 2 diabetes mellitus Status: Chronic Assessment & Plan: Continue chronic Metformin. She will be also be placed on SS insulin #2, AC/ HS blood glucose monitoring and ADA diet. Glucose running about 160's. (3) Depression Status: Chronic Assessment & Plan: Continue chronic Lexapro. (4) Essential hypertension Status: Chronic Assessment & Plan: She is on chronic treatment with Lasix. Continue to monitor blood pressures. (5) CVA (cerebral infarction) Status: Chronic Assessment & Plan: In 2008. Left leg deficit. Could prolong rehab from knee replacement. (6) Acute deep vein thrombosis of lower extremity Status: Resolved Assessment & Plan: On warfarin chronically. See above plan. Time Spent on Plan of Care: > 30 min Exam Sepsis Risk: No Definite Risk EZ COOK MD FACP Apr 04, 2019 07:40
[2019-04-04] MEDS: traMADol 50 MG TAB PO PRN ×2 (07:50→13:49)
[2019-04-04 08:11] LABS: INR 1.75
[2019-04-04] MEDS: metFORMIN HCL XR 500 MG TABCR PO SCH ×2 (09:41→21:26)
[2019-04-04] MEDS: WARFARIN SOD 7.5 MG TAB PO SCH (09:42)
[2019-04-04] MEDS: ESCITALOPRAM OXALATE 10 MG TAB PO SCH (09:42)
[2019-04-04] MEDS: ENOXAPARIN 40 MG/0.4ML SYR SC SCH (09:43)
--- NOTE | 2019-04-04 10:00 | NUR ---
LT101 request made for pt's admission to ECF.
[2019-04-04 10:05] VITALS: BP 122/66
--- NOTE | 2019-04-04 10:30 | EKG ---
FACILITY: [facility] [place] PATIENT NAME: MIRYAM ESAON : [id number] MR: [id number] V: [id number] EXAM DATE: ORDERING PHYSICIAN: DOREEN SHAH TECHNOLOGIST: Test Reason : chest pain Blood Pressure : / mmHG Vent. Rate : 077 BPM Atrial Rate : 077 BPM P-R Int : 142 ms QRS Dur : 080 ms QT Int : 394 ms P-R-T Axes : 060 074 098 degrees QTc Int : 445 ms Normal sinus rhythm Nonspecific ST and T wave abnormality Abnormal ECG When compared with ECG of 28-DEC-2018 21:29, Previous ECG has undetermined rhythm, needs review T wave inversion no longer evident in Inferior leads T wave inversion no longer evident in Anterior leads and laterally Confirmed by DOREEN SHAH ([id number]) on 04/04/2019 8:53:10 PM Referred By: Confirmed By:DOREEN SHAH
[2019-04-04] MEDS ORDERED: WARFARIN SOD 7.5 MG TAB PO SCH (13:00)
--- NOTE | 2019-04-04 13:46 | NUR ---
Physical Therapy Impression Pt demonstrating improvements in tolerance to mobility depsite high levels of reported pain. Pt still limited with mobility and needs encouragement to ambulate despite pain. Pt requiring Lakhwinder to lift surgical leg for supine to sit transfer. Pt performing sit<>stand transfers with CGAx1 and use of RW. Pt ambulated 75 feet with CGAx1 and use of RW. Pt taking several standing resting breaks due to pain. Pt with a very slow gait with a step-to pattern. Pt left sitting in reclining chair with all needs met and call light in reach. Pt would benefit from further skilled PT care to improve strength and endurance to allow for more functional ambulation and to perform bed mobility without assistance. Rec short term sub-acute rehab. Physical Therapy Goals 1. Fernandez bed mobility 2. Fernandez sit to stand transfers 3. Fernandez ambulation of 150 ft with use of least restrictive device 4. Fernandez ability to ascend/descend 1 stair 5. Mod I use of CPM. Patient's Goals
--- NOTE | 2019-04-04 13:47 | NUR ---
This Physical Therapist or Physical Education Instructor was present for the entire physical therapy session directing the services, making the skilled judgement, and was not engaged in treating another patient or doing another task at the same time as the treatment session. Addendum: 04/04/19 at 1347 by GLENNY ESPINO PT Amended: Links added.
--- NOTE | 2019-04-04 16:46 | NUR ---
Physical Therapy Impression Session limited by Pt reports of pain at 10/10 level. Therex performed in supine: ankle pumps, quad sets, glut sets, and heel slides. 1 set x 15 reps performed. Heel slides ROM extremely limited due to reports of pain. Pt left supine in bed with all needs met and call light in reach. Rec short term sub acute rehab. Physical Therapy Goals 1. Fernandez bed mobility 2. Fernandez sit to stand transfers 3. Fernandez ambulation of 150 ft with use of least restrictive device 4. Fernandez ability to ascend/descend 1 stair 5. Mod I use of CPM. Patient's Goals
--- NOTE | 2019-04-04 16:46 | NUR ---
This Physical Therapist or Return To Service Inspector was present for the entire physical therapy session directing the services, making the skilled judgement, and was not engaged in treating another patient or doing another task at the same time as the treatment session. Addendum: 04/04/19 at 1647 by GLENNY ESPINO PT Amended: Links added.
[2019-04-04 17:21] VITALS: BP 134/73
[2019-04-04 20:00] VITALS: BP 104/62
[2019-04-04] MEDS: SIMVASTATIN 20 MG TAB PO SCH (21:26)
[2019-04-04 23:05] VITALS: BP 105/58
[2019-04-05] MEDS: ACETAMINOPHEN 500 MG TAB PO SCH ×3 (00:34→17:01)
[2019-04-05 02:49] VITALS: BP 107/62
[2019-04-05] MEDS: traMADol 50 MG TAB PO PRN ×3 (02:54→18:20)
[2019-04-05 07:15] LABS: INR 1.92
[2019-04-05 07:31] VITALS: BP 117/63
--- NOTE | 2019-04-05 07:46 | Hospitalist Progress Note ---
Subjective Progress Notes Subjective She had a few minute episode of mild right sided chest pain yesterday. She gets them occasionally at home and thinks it is related to her shoulder. No SOB. Physical Exam Vital Signs Date Time Temp Pulse Resp B/P (MAP) Pulse Ox O2 Delivery O2 Flow Rate FiO2 04/05/19 07:31 99.0 76 16 117/63 (81) 92 Room Air 04/05/19 02:49 1.0 Intake and Output 04/05/19 07:02 Intake Total 1440 ml Balance 1440 ml Intake Oral 1440 ml # Voids 7 # Bowel Movements 3 General Appearance: Alert, Awake, No Acute Distress Assessment and Plan Problems: (1) Status post right knee replacement Status: Acute Assessment & Plan: She has history of DVT. Warfarin has been restarted and is bridged with Lovenox. INR 1.92 today, so will stop Lovenox. (2) Type 2 diabetes mellitus Status: Chronic Assessment & Plan: Continue chronic Metformin. She will be also be placed on SS insulin #2, AC/ HS blood glucose monitoring and ADA diet. Glucose running about 84-126 (3) Depression Status: Chronic Assessment & Plan: Continue chronic Lexapro. (4) Essential hypertension Status: Chronic Assessment & Plan: She is on chronic treatment with Lasix, but has not been restarted because of normal BP. Follow BP and restart when needed. (5) CVA (cerebral infarction) Status: Chronic Assessment & Plan: In 2008. Left leg deficit. Could prolong rehab from knee replacement. (6) Acute deep vein thrombosis of lower extremity Status: Resolved Assessment & Plan: On warfarin chronically. See above plan. Exam Sepsis Risk: No Definite Risk DOREEN SHAH MD Apr 05, 2019 07:46
[2019-04-05] MEDS: metFORMIN HCL XR 500 MG TABCR PO SCH ×2 (07:56→20:25)
[2019-04-05] MEDS: WARFARIN SOD 5 MG TAB PO SCH (07:56)
[2019-04-05] MEDS: ESCITALOPRAM OXALATE 10 MG TAB PO SCH (07:56)
[2019-04-05] MEDS: oxyCODONE HCL 5 MG CAP PO PRN ×3 (07:57→17:01)
[2019-04-05 11:32] VITALS: BP 109/76
--- NOTE | 2019-04-05 12:54 | NUR ---
This Physical Therapist or Security Checker was present for the entire physical therapy session directing the services, making the skilled judgement, and was not engaged in treating another patient or doing another task at the same time as the treatment session. Addendum: 04/05/19 at 1254 by MAN TANG PT Amended: Links added.
--- NOTE | 2019-04-05 14:01 | NUR ---
Physical Therapy Impression Despite initally reporting pain at 10, Pt tolerated session well and demonstrated improvements in therex performance and bed mobility. Therex performed supine in bed: ankle pumps, quad sets, glut sets, and heel slides. ROM for heel slides significantly improved as compared to yesterday's session. Pt tolerating therex much better with no additional complaints of pain. Pt able to transfer supine to sit with SBA. Sit to stand transfer performed with SBA and use of RW. Pt ambulated 10 ft from EOB to bathroom with RW. Pt safe to discharge to short term sub acute rehab when medically appropriate. Physical Therapy Goals 1. Fernandez bed mobility 2. Fernandez sit to stand transfers 3. Fernandez ambulation of 150 ft with use of least restrictive device 4. Fernandez ability to ascend/descend 1 stair 5. Mod I use of CPM. Patient's Goals
--- NOTE | 2019-04-05 14:35 | NUR ---
This Physical Therapist or Wire Lather was present for the entire physical therapy session directing the services, making the skilled judgement, and was not engaged in treating another patient or doing another task at the same time as the treatment session. Addendum: 04/05/19 at 1435 by MAN TANG PT Amended: Links added.
[2019-04-05 14:45] VITALS: BP 120/61
[2019-04-05 19:37] VITALS: BP 120/61
[2019-04-05] MEDS: SIMVASTATIN 20 MG TAB PO SCH (20:24)
[2019-04-05 23:13] VITALS: BP 100/59
[2019-04-06] MEDS: ACETAMINOPHEN 500 MG TAB PO SCH ×2 (01:10→09:03)
[2019-04-06 02:41] VITALS: BP 127/74
[2019-04-06 05:52] LABS: INR 2.01
[2019-04-06 07:37] VITALS: BP 122/68
[2019-04-06 07:43] VITALS: BP 111/72
--- NOTE | 2019-04-06 07:46 | EKG ---
FACILITY: [facility] [place] PATIENT NAME: MIRYAM EASON : [id number] MR: [id number] V: [id number] EXAM DATE: ORDERING PHYSICIAN: KIARRA MOYA TECHNOLOGIST: LOGAN Tovar Reason : CP Blood Pressure : / mmHG Vent. Rate : 067 BPM Atrial Rate : 067 BPM P-R Int : 138 ms QRS Dur : 082 ms QT Int : 410 ms P-R-T Axes : 043 058 079 degrees QTc Int : 433 ms Normal sinus rhythm Nonspecific ST and T wave abnormality When compared to the ECG of, 04.04.2019 No significant change was found Confirmed by Kiarra Cox ([id number] on 04/06/2019 7:54:56 AM Referred By: Confirmed By:Kiarra Moya
[2019-04-06] MEDS ORDERED: TRAM-420 PO (08:02)
[2019-04-06] MEDS ORDERED: OXYC5TAB38 PO (08:04)
--- NOTE | 2019-04-06 08:52 | Hospitalist Progress Note ---
Subjective Progress Notes Subjective JOAQUÍN overnight, brief atypical chest pain with no EKG changes and negative troponin this am. slowly progressing with PT. Patient Complains of: Cardiovascular: No: Chest Pain Physical Exam Vital Signs Date Time Temp Pulse Resp B/P (MAP) Pulse Ox O2 Delivery O2 Flow Rate FiO2 04/06/19 07:57 Nasal Cannula 1.0 04/06/19 07:43 111/72 (85) 04/06/19 07:37 98.3 68 20 93 Intake and Output 04/06/19 07:02 Intake Total 1960 ml Balance 1960 ml Intake Oral 1960 ml # Voids 5 General Appearance: Alert, Awake, No Acute Distress Neuro: No Gross deficits Cardiovascular: Normal Rhythm & Peripheral Pulses Respiratory: No Respiratory Distress Extremities: Soft and Non Tender, Warm, Pulses, Perfused Assessment and Plan Problems: (1) Status post right knee replacement Status: Acute Assessment & Plan: She has history of DVT. Warfarin is therapeutic after Lovenox bridging. (2) Type 2 diabetes mellitus Status: Chronic Assessment & Plan: Continue chronic Metformin. She was placed on SS insulin #2, AC/ HS blood glucose monitoring and ADA diet. Glucose running about 84-126 (3) Depression Status: Chronic Assessment & Plan: Continue chronic Lexapro. (4) Essential hypertension Status: Chronic Assessment & Plan: She is on chronic treatment with Lasix, but has not been restarted because of normal BP. Follow BP and restart when needed. (5) CVA (cerebral infarction) Status: Chronic Assessment & Plan: In 2008. Left leg deficit. Could prolong rehab from knee replacement. (6) Acute deep vein thrombosis of lower extremity Status: Resolved Assessment & Plan: On warfarin chronically. See above plan. Exam Sepsis Risk: No Definite Risk KIARRA TROTTER DO Apr 06, 2019 08:52
[2019-04-06] MEDS: metFORMIN HCL XR 500 MG TABCR PO SCH (09:03)
[2019-04-06] MEDS: ESCITALOPRAM OXALATE 10 MG TAB PO SCH (09:03)
[2019-04-06] MEDS: WARFARIN SOD 7.5 MG TAB PO SCH (09:05)
--- NOTE | 2019-04-06 09:08 | Transfer Summary (ECF/SWB) ---
Transfer Summary (ECF/SWB) Problems: (1) Status post right knee replacement Status: Acute Assessment & Plan: She has history of DVT. Warfarin is therapeutic after Lovenox bridging. (2) Type 2 diabetes mellitus Status: Chronic Assessment & Plan: Continue chronic Metformin. She was placed on SS insulin #2, AC/ HS blood glucose monitoring and ADA diet. Glucose running about 84-126 (3) Depression Status: Chronic Assessment & Plan: Continue chronic Lexapro. (4) Essential hypertension Status: Chronic Assessment & Plan: She is on chronic treatment with Lasix, but has not been restarted because of normal BP. Follow BP and restart when needed. (5) CVA (cerebral infarction) Status: Chronic Assessment & Plan: In 2008. Left leg deficit. Could prolong rehab from knee replacement. (6) Acute deep vein thrombosis of lower extremity Status: Resolved Assessment & Plan: On warfarin chronically. See above plan. Latest Vital Signs Vital Signs Date Time Temp Pulse Resp B/P (MAP) Pulse Ox O2 Delivery O2 Flow Rate FiO2 04/06/19 07:57 Nasal Cannula 1.0 04/06/19 07:43 111/72 (85) 04/06/19 07:37 98.3 68 20 93 Condition: Improved Treatment Goals and Plan Patient requires mcfp and/or skilled rehabilitation with the goal to increase independence with ADL's, functional strength and mobility. Continue and adjust medication regimen. Services Required: PT, OT KIARRA TROTTER DO Apr 06, 2019 09:08
== END 2019-04-06 10:15 | DRG 470 ==
LOC: OR 03:52 → MED 13:25 → OBSVTOIN 04-03 → INTOOBSV 04-03 → OBSVTOIN 04-03 15:00
PROVIDERS: ADMIT Orthopaedic Surgery; ATTEND Orthopaedic Surgery
PROC: 0SRC0J9 Replacement of Right Knee Joint with Synthetic Substitute, Cemented, Open Approach (ICD-10-PCS; principal; 2019-04-02 09:48)
PROC: 5A09357 Assistance with Respiratory Ventilation, Less than 24 Consecutive Hours, Continuous Positive Airway Pressure (ICD-10-PCS; 2019-04-02 09:48)
DX: M17.11 Unilateral primary osteoarthritis, right knee (principal); E11.9 Type 2 diabetes mellitus without complications; I10 Essential (primary) hypertension; E78.2 Mixed hyperlipidemia; G47.33 Obstructive sleep apnea (adult) (pediatric); K58.9 Irritable bowel syndrome, unspecified; K21.9 Gastro-esophageal reflux disease without esophagitis; E66.9 Obesity, unspecified; Z86.73 Personal history of transient ischemic attack (TIA), and cerebral infarction without residual deficits; F32.9 Major depressive disorder, single episode, unspecified; Z86.718 Personal history of other venous thrombosis and embolism; Z79.84 Long term (current) use of oral hypoglycemic drugs; Z79.01 Long term (current) use of anticoagulants; Z91.040 Latex allergy status; Z88.5 Allergy status to narcotic agent; Z88.2 Allergy status to sulfonamides; Z68.37 Body mass index [BMI] 37.0-37.9, adult
CPT/HCPCS: 36415; 36416; 76942; 81001; 82040; 82247; 82310; 82374; 82435; 82565; 82947; 82948; 84075; 84132; 84155; 84295; 84450; 84460; 84484; 84520; 85025; 85610; 86850; 86900; 86901; 93005; 96372; 97161; C1713; C1776; G0378; J0690; J1100; J1650; J2001; J2250; J2270; J2405; J2704; J2765; J2795; J3010; J3490; Q0163

== ENCOUNTER 2019-04-06 10:15 | Inpatient (IN) | payer MEDICAID ==
[2019-04-03 07:58] VITALS: Ht 170.2 cm; Wt 115.7 kg
[~2019-04-06] VITALS: Ht 170.2 cm; Wt 115.7 kg
[~2019-04-06 10:15] MED LIST changes: +OXYC5TAB38 PO
[2019-04-06 10:35] VITALS: BP 114/58
[2019-04-06] MEDS ORDERED: ZOLPIDEM TARTRATE 5 MG TAB PO PRN (10:49)
[2019-04-06] MEDS ORDERED: BISACODYL 10 MG SUPP PR PRN (10:49)
[2019-04-06] MEDS ORDERED: WARFARIN SOD 7.5 MG TAB PO SCH (10:49)
[2019-04-06] MEDS ORDERED: diphenhydrAMINE 25 MG CAP PO PRN (10:49)
--- NOTE | 2019-04-06 11:16 | Consultant Pharmacy Review ---
Manager Fraud Review Medication Review Do All Mecications have a Diag: Yes (Patient is 58 yrs old ) Other General Cautions interaction C = Monitor therapy X = Avoid combination B = No action needed D = Consider therapy modification View interaction detail by clicking on link. * Drug-Drug Interactions * D Ambien (Zolpidem) DiphenhydrAMINE (Systemic) (BODY BUMPER Depressants) Depends on Brand Name D Ambien (Zolpidem) TraMADol (BODY BUMPER Depressants) Depends on Brand Name D Bisacodyl Magnesium Hydroxide (Antacids) D DiphenhydrAMINE (Systemic) (BODY BUMPER Depressants) TraMADol (Opioid Agonists) C Acetaminophen Coumadin (Vitamin K Antagonists) Depends on Dose C Ambien (BODY BUMPER Depressants) Lexapro (Selective Serotonin Reuptake Inhibitors) C Coumadin (Anticoagulants) Lexapro (Agents with Antiplatelet Properties) Depends on International labeling C Coumadin (Vitamin K Antagonists) Lexapro (Selective Serotonin Reuptake Inhib itors) C Coumadin (Vitamin K Antagonists) TraMADol C Coumadin (Vitamin K Antagonists) Zocor (HMG-CoA Reductase Inhibitors (Statins)) C DiphenhydrAMINE (Systemic) (BODY BUMPER Depressants) Lexapro (Selective Serotonin Reuptake Inhibitors) C Glucophage XR (Blood Glucose Lowering Agents) Lexapro (Selective Serotonin Reuptake Inhibitors) C Lexapro (Serotonin Modulators) TraMADol B Acetaminophen TraMADol (Opioid Agonists) Pneumococcal Vaccine HX Pneumo Vac ([id number]): No HX Pneumo Vac (Pneumovax): No Comments Regarding the Review Labs: INR while on couadin; periodic HgA1c, LFTs. She received the flu vaccine fall of 2017. Ambien, diphenhydramine and tramadol may increase fall risk. GAB TAN Apr 06, 2019 11:16
[2019-04-06] MEDS: MAGNESIUM HYDROXIDE* 30ML UDCP PO PRN (11:22)
--- NOTE | 2019-04-06 13:25 | NUR ---
Occupational Therapy Impression Initial OT evaluation completed. Please refer to other reports for evaluation results and plan of care and goals. Occupational Therapy Goals Patient's Goal
--- NOTE | 2019-04-06 13:45 | NUR ---
Physical Therapy Impression PT ECF eval complete. Pt demonstrating improved tolerance to ambulation and strength during transfers. SBA provided for supine to sit transfer, SBA and leg motor and generator assembler for sit to supine transfer. SBA and RW use for sit<>stand xfers. Pt ambulated 85 ft with SBA and use of RW. Pt demonstrating increased tolerance to mobility, with no complaints of pain and no rest breaks required. Pt presents with a slow gait, gait speed measured at 0.08m/second. Pt ambulated on room air and SpO2 measured at >90% Pt left supine in bed with all needs met and call light in reach. Pt will benefit from skilled PT intervention in order to increase independence with functional mobility and allow for safe d/c home. Physical Therapy Goals 1. Fernandez bed mobility 2. Fernandez sit to stand transfer with use of least restrictive device 3. Fernandez ambulation of at least 150 ft with use of least restrictive device 4. Fernandez ability to ascend/descend 1 stair 5. Independent use of CPM machine. 6. Improve gait speed to 0.2m/s Patient's Goals
--- NOTE | 2019-04-06 13:45 | OT ECF NOTE ---
Type of Note: Initial Note Primary Medical Diagnosis: right TKA Occupational Therapy Evaluation Date: 04/06/19 SUBJECTIVE: Prior Hospitalization: independent Prior Level of Function: independent Prior Living Status: Single level house Community Services: Independent Home Accessibility: Tub/shower combination Equipment Owned: Front wheeled walker Medical Complications/Past Medical History: CVA Psychosocial Support: ex and son at home Pain Scale (0-10): 0 Hand Dominance: right OBJECTIVE: ROM: Both upper extremities WFL Functional Transfer: Assistive Device: Front wheeled walker; Gait belt Transfer Ability: CGA ADL: Upper body dressing: Assistive device: Upper body dressing ability: Set-up Lower body dressing: Assistive device: Cell Attendant and Sock aid Lower body dressing ability: Maximum assistance Toileting: Assistive device: Toileting ability: SBA/CGA Grooming/hygiene: Assistive device: not assessed Grooming ability: not assessed Bathing: Assistive device: not assessed Bathing ability: not assessed ASSESSMENT: Patient presents with decreased independence with self care perform post knee surgery. Patient was independent with all self cares and IADLs prior. Patient does have family support at home. Patient's plan is return back home upon discharge. Patient will benefit from OT services to increase independence with self cares. Problem List/Current Limitations: Generalized weakness Short Term Goals: 1. Patient will be I with UB dressing 2. Patient will be I with LB dressing 3. Patient will be I with toileting 4. Patient will be I with grooming and hygiene standing at sinkfront Snf Goals: return home Patient Goals: return home Rehabilitation Prognosis: Good Barriers to Discharge: none identified PLAN: The patient will benefit from skilled occupational therapy services 5 times per week for 2 weeks including: ADL training Safety training IADL training Adaptive equip training Thank you for this referral. If you have any questions, concerns, or comments about this report or plan, please contact me at . CARLOSD
--- NOTE | 2019-04-06 14:50 | Medical Nutrition Therapy ---
Nutrition Anthropometrics Height (Inches): 67 (fom Med floor) Weight (Pounds): 241 BMI: 37.7 Herson Nutrition Score: Herson Nutrition Risk Score: Dietary Referral Nutrition Risk Factors: Non-Healing Wound Nutrition Risk Comment: ON COUMADIN Physical Findings Physical Appearance: Obese BMI 30-39 Skin Appearance Skin Appearance: Edema Edema Location Modifier: Both Edema Location: Lower Extremity/Feet Type of Edema: Degree of Edema: Gastrointestinal Symptoms GI Symtoms: Change in Bowel Pattern Tube Present: Bowel Sounds: Recent Bowel Pattern: Constipated Stool Characteristics: Nutritional Diagnosis Nutritional Risk Acuity 4: Good Appetite, Modified Diet Past Medical History: CVA, Migrain,Depression, Hyperlipidemia, blood clots, T2DM Nutritional Acuity: 4-Low Adjusted Energy Requirement Re: 2200 (20kcal/kg) Protein Requirement: 98 (.9gm/kg) Fluid Requirement: 2200 (0ml/kg) Diet Type: Diabetic Nutrition Intervention: Cont diet as ordered, Encourage intake, HS snack Drug: Warfarin Do Not Serve Any of the Follow: Broccoli, Brussel Sprouts, Spinach, [place] Lettuce, Cranberry Juice Nutrition Monitoring & Eval Nutrition Goals: Eat 75-100% Meal RD Patient Assessment Time: [address] Assessment Type: RD Assessment Patient Nutrition Acuity: 4-Low Follow Up Date: Apr 10, 2019 Nutritional Comment: 04/06 pt admitted s/p knees surgery. Pt on diabetic diet and eating 75-100%. BMI is in class 2 obesity range. BG on med floor was ususally WNR. Will cont to monitor and encourage intake. AURORA CARLSON Apr 06, 2019 14:50
--- NOTE | 2019-04-06 15:12 | PT ECF NOTE ---
Type of Note: Initial Note Primary Medical Diagnosis: R TKA Physical Therapy Evaluation Date: 04/06/2019 SUBJECTIVE: Prior Hospitalization: 04/03/2019-04/06/2019 for R TKA Prior Level of Function: Independent with ADLs Prior Living Status: Single level house, Living with family Community Services: Independent, No known needs Home Accessibility: One step into home Equipment Owned: Front wheeled walker Medical Complications/Past Medical History: See EMR OBJECTIVE: Strength: Right Lower Extremity: Hip flexion: 3/5 Left Lower Extremity: DF: 5/5 Knee extension: 4/5 Hip flexion: 3+/5 Bed Mobility: SBA Assistive device: Transfers: SBA Assistive Device: Front wheeled walker Gait: SBA x 85 ft. Assistive device: Front wheeled walker Stairs: Not assessed Assistive device: 10 meter walk test (0.6m/second cannot function independently): 0.08 m/second ASSESSMENT: PT eval complete. Pt demonstrating improvements in tolerance to ambulation, but still ambulating with a slow gait speed. Gait speed measured at 0.08 m/second, indicating an increased fall risk and inability to function independently. Pt requiring SBA for all transfers. Pt would benefit from further continued skilled PT care to continue to improve LE strength and endurance to allow for more functional ambulation and safe d/c home. Problem List/Current Limitations: Pain, Decreased WB, Decreased activity katt, Decreased strength, Decreased ROM, Decreased balance, Generalized weakness Short Term Goals: 1. Fernandez bed mobility 2. Fernandez sit to stand transfer with use of least restrictive device 3. Fernandez ambulation of at least 150 ft with use of least restrictive device 4. Fernandez ability to ascend/descend 1 stair 5. Independent use of CPM machine. 6. Improve gait speed to 0.2m/s Rehabilitation Prognosis: Good Barriers for Discharge: Pain control PLAN: The patient will benefit from skilled physical therapy services 5 times per week for 2 weeks including: Therapeutic Exercise, Therapeutic Activities, Transfer Training, Gait Training, Stair Training, ADL's, Safety Training, Pt/Caregiver Training, and Bed Mobility, Manual therapy, Neuromuscular re-education. Thank you for this referral. If you have any questions, concerns, or comments about this report or plan, please contact me at . Montez Hartley, SPT Molly Centeno, PT, DPT MTDD
--- NOTE | 2019-04-06 15:22 | NUR ---
This Physical Therapist or Rounding And Backing Machine Operator was present for the entire physical therapy session directing the services, making the skilled judgement, and was not engaged in treating another patient or doing another task at the same time as the treatment session. Addendum: 04/06/19 at 1522 by MAN TANG PT Amended: Links added.
[2019-04-06 16:24] VITALS: BP 113/50
[2019-04-06] MEDS: ACETAMINOPHEN 500 MG TAB PO SCH (18:19)
[2019-04-06] MEDS: CLOTRIMAZOLE 10 MG TROCHE PO SCH ×2 (18:19→21:34)
[2019-04-06] MEDS: OFLOXACIN 0.3% OP SOLN 5ML BTL OU SCH ×2 (18:19→21:34)
[2019-04-06] MEDS: SIMVASTATIN 20 MG TAB PO SCH (21:34)
[2019-04-06] MEDS: metFORMIN HCL XR 500 MG TABCR PO SCH (21:34)
[2019-04-07] MEDS: ACETAMINOPHEN 500 MG TAB PO SCH ×3 (01:00→17:39)
[2019-04-07] MEDS: CLOTRIMAZOLE 10 MG TROCHE PO SCH ×5 (05:34→22:55)
[2019-04-07] MEDS: traMADol 50 MG TAB PO PRN ×3 (05:35→20:58)
[2019-04-07 06:47] LABS: PLATELET COUNT, AUTOMATED 226 K/uL (150-450)
[2019-04-07 06:59] LABS: INR 1.83
[2019-04-07 08:30] VITALS: BP 118/60
[2019-04-07] MEDS: ESCITALOPRAM OXALATE 10 MG TAB PO SCH (08:31)
[2019-04-07] MEDS: metFORMIN HCL XR 500 MG TABCR PO SCH ×2 (08:32→20:57)
[2019-04-07] MEDS: OFLOXACIN 0.3% OP SOLN 5ML BTL OU SCH ×4 (08:32→20:58)
[2019-04-07] MEDS: WARFARIN SOD 5 MG TAB PO SCH (08:34)
[2019-04-07 15:10] VITALS: BP 120/72
--- NOTE | 2019-04-07 16:03 | NUR ---
Physical Therapy Impression Pt requires constant VC's for step through gait pattern and to maintain consistent movement of FWW. Pt able to ambulate in step through pattern without difficulty. Pt is resistant to education on importance of completing ther. ex independently and utilizing CPM during the day. May benefit from further education in this regard. Pt tolerated bout of ambulation x 90' with FWW. Up in chair at [facility] dining room at end of session. Encouraged pt to be out of room for all meals, pt agreed. Notified nursing. Cont. with POC Physical Therapy Goals 1. Fernandez bed mobility 2. Fernandez sit to stand transfer with use of least restrictive device 3. Fernandez ambulation of at least 150 ft with use of least restrictive device 4. Fernandez ability to ascend/descend 1 stair 5. Independent use of CPM machine. 6. Improve gait speed to 0.2m/s Patient's Goals
--- NOTE | 2019-04-07 17:11 | NUR ---
Pt ambulating hallway Pt assisted back to room, teaching provided re: calling for assistance prior to walking. Pt states "I'm so bored here". Nursing offered to ambulate in halls with pt, pt refused.
[2019-04-07] MEDS: SIMVASTATIN 20 MG TAB PO SCH (20:57)
[2019-04-08] MEDS: ACETAMINOPHEN 500 MG TAB PO SCH ×5 (01:00→21:00)
[2019-04-08] MEDS: CLOTRIMAZOLE 10 MG TROCHE PO SCH ×5 (06:08→21:49)
[2019-04-08 06:15] LABS: INR 1.74
[2019-04-08] MEDS: traMADol 50 MG TAB PO PRN ×2 (06:31→15:40)
[2019-04-08 07:23] VITALS: BP 127/74
[2019-04-08] MEDS: ESCITALOPRAM OXALATE 10 MG TAB PO SCH (09:10)
[2019-04-08] MEDS: metFORMIN HCL XR 500 MG TABCR PO SCH ×2 (09:10→21:00)
[2019-04-08] MEDS: OFLOXACIN 0.3% OP SOLN 5ML BTL OU SCH ×4 (09:10→21:00)
[2019-04-08] MEDS: WARFARIN SOD 5 MG TAB PO SCH (09:12)
[2019-04-08 15:31] VITALS: BP 138/75
[2019-04-08] MEDS: SIMVASTATIN 20 MG TAB PO SCH (21:00)
[2019-04-09] MEDS: ACETAMINOPHEN 500 MG TAB PO SCH ×5 (03:00→21:17)
[2019-04-09] MEDS: traMADol 50 MG TAB PO PRN ×3 (03:55→16:49)
[2019-04-09] MEDS: CLOTRIMAZOLE 10 MG TROCHE PO SCH ×5 (05:26→21:17)
[2019-04-09 05:36] LABS: INR 1.68
[2019-04-09 07:26] VITALS: BP 103/70
[2019-04-09] MEDS: ESCITALOPRAM OXALATE 10 MG TAB PO SCH (08:28)
[2019-04-09] MEDS: ENOXAPARIN 100 MG/ML SYR SC SCH ×2 (08:28→21:17)
[2019-04-09] MEDS: metFORMIN HCL XR 500 MG TABCR PO SCH ×2 (08:28→21:17)
[2019-04-09] MEDS: OFLOXACIN 0.3% OP SOLN 5ML BTL OU SCH ×4 (08:29→21:17)
[2019-04-09] MEDS ORDERED: SUMAtriptan SUCC 25MG TAB PO ONE (08:45)
[2019-04-09] MEDS ORDERED: WARFARIN SOD 7.5 MG TAB PO SCH (09:00)
--- NOTE | 2019-04-09 09:13 | NUR ---
Occupational Therapy Impression Mod (I) supine to sit with leg textile designs sales representative. SBA ambulation in room with RW. SBA ambulation x60ft with RW. Independent UB dressing. Educated for LB AE (sock aid/solar photovoltaic crew lead). Completing LB Mod (I). Declined toileting or shower. Bath wipes provided for partial bed bath. Pt seated up in chair for breakfast, declining further needs. Occupational Therapy Goals 1. Patient will be I with UB dressing 2. Patient will be I with LB dressing 3. Patient will be I with toileting 4. Patient will be I with grooming and hygiene at sinkfront Patient's Goal
--- NOTE | 2019-04-09 11:55 | ECF History & Physical ---
Transfer Summary (ECF/SWB) Problems: (1) Status post right knee replacement Status: Acute Assessment & Plan: She has history of DVT. Warfarin is therapeutic after Lovenox bridging. (2) Type 2 diabetes mellitus Status: Chronic Assessment & Plan: Continue chronic Metformin. She was placed on SS insulin #2, AC/ HS blood glucose monitoring and ADA diet. Glucose running about 84-126 (3) Depression Status: Chronic Assessment & Plan: Continue chronic Lexapro. (4) Essential hypertension Status: Chronic Assessment & Plan: She is on chronic treatment with Lasix, but has not been restarted because of normal BP. Follow BP and restart when needed. (5) CVA (cerebral infarction) Status: Chronic Assessment & Plan: In 2008. Left leg deficit. Could prolong rehab from knee replacement. (6) Acute deep vein thrombosis of lower extremity Status: Resolved Assessment & Plan: On warfarin chronically. See above plan. Latest Vital Signs Vital Signs Date Time Temp Pulse Resp B/P (MAP) Pulse Ox O2 Delivery O2 Flow Rate FiO2 04/06/19 07:57 Nasal Cannula 1.0 04/06/19 07:43 111/72 (85) 04/06/19 07:37 98.3 68 20 93 Condition: Improved Treatment Goals and Plan Patient requires care home and/or skilled rehabilitation with the goal to increase independence with ADL's, functional strength and mobility. Continue and adjust medication regimen. Services Required: PT, OT KIARRA TROTTER DO Apr 06, 2019 09:08 <Electronically signed by KIARRA MERCADO DO> D/ 7 7 7 GENEVA/MICHELLE CC: IRVING
--- NOTE | 2019-04-09 12:26 | NUR ---
Headache Pt c/o headache about 0850, so given Imitrex at 0855. Pain # went from an 8 to a 5 on 0-10 scale after Imitrex. At about 1118 hours pt c/o nausea and chills. Given warmed blanket and this RN paged hospitalist at 1120. Room darkened and pt given ice packs for back of neck and forehead. About 1215 hours, Dr. William Muir returned call and gave a one-time order to Ian Katz RN, for Phenergan either PO or suppository, patient preference. This RN notified patient and she reported that she would NOT take a suppository, but that actually her nausea was gone. Martín Katz put order in anyway, in case nausea returns with lunch. We will continue to monitor.
[2019-04-09] MEDS ORDERED: PROMETHAZINE HCL 25 MG TAB PO ONE (12:30)
--- NOTE | 2019-04-09 14:34 | NUR ---
Physical Therapy Impression Pt declined PT earlier today reporting not feeling well and currently states she has a migraine. Pt is agreeable to supine ther ex. Encouraged Pt to increase CPM flexion more aggressively. Pt left with CPM in place at 60 deg. Physical Therapy Goals 1. Fernandez bed mobility 2. Fernandez sit to stand transfer with use of least restrictive device 3. Fernandez ambulation of at least 150 ft with use of least restrictive device 4. Fernandez ability to ascend/descend 1 stair 5. Independent use of CPM machine. 6. Improve gait speed to 0.2m/s Patient's Goals
--- NOTE | 2019-04-09 15:29 | Medical Nutrition Therapy ---
Nutrition Anthropometrics Height (Inches): 67.00 Height (Calculated Centimeters: 170.302625 Weight (Pounds): 255 Weight (Calculated Kilograms): 115.666 BMI: 37.7 Hx Weight Loss: No Herson Nutrition Score: Adequate Herson Nutrition Risk Score: 20 Dietary Referral Nutrition Risk Factors: Non-Healing Wound Nutrition Risk Comment: ON COUMADIN Physical Findings Physical Appearance: Obese BMI 30-39 Skin Appearance Skin Appearance: Edema Edema Location Modifier: Both Edema Location: Lower Extremity/Feet Type of Edema: Degree of Edema: Gastrointestinal Symptoms GI Symtoms: Change in Bowel Pattern, Thrush Tube Present: Bowel Sounds: Recent Bowel Pattern: Constipated Stool Characteristics: Nutrition/Food History Tries to follow low CHO diet at home Good Nutritional Diagnosis Nutritional Risk Acuity 4: Good Appetite, Modified Diet Past Medical History: CVA, Migrain,Depression, Hyperlipidemia, blood clots, T2DM Nutritional Acuity: 4-Low Adjusted Energy Requirement Re: 2200 (20kcal/kg) Protein Requirement: 98 (.9gm/kg) Fluid Requirement: 2200 (0ml/kg) Diet Type: Diabetic Nutrition Intervention: Cont diet as ordered, Encourage intake, HS snack Drug: Warfarin Do Not Serve Any of the Follow: Broccoli, Brussel Sprouts, Spinach, [place] Lettuce, Cranberry Juice Nutrition Monitoring & Eval RD Patient Assessment Time: [address] Assessment Type: RD Assessment Patient Nutrition Acuity: 4-Low Follow Up Date: Apr 10, 2019 Nutritional Comment: 04/06 pt admitted s/p knees surgery. Pt on diabetic diet and eating 75-100%. BMI is in class 2 obesity range. BG on med floor was ususally WNR. Will cont to monitor and encourage intake. MINDI 04/09/19: Spoke with pt this afternoon. Reports following diabetic diet at home. She reports her wt has been stable. BG has been WNR. Recommended high protein foods for healing s/p knee surgery. Has been on chronic metformin recommend check B12 as this medication interferes with B12 absorption. Will continue to monitor pt intakes and weights.JOSEPH TORRES Apr 09, 2019 15:26
[2019-04-09 20:30] VITALS: BP 113/64
[2019-04-09] MEDS: SIMVASTATIN 20 MG TAB PO SCH (21:17)
[2019-04-10] MEDS: ACETAMINOPHEN 500 MG TAB PO SCH ×5 (03:38→20:25)
[2019-04-10] MEDS: CLOTRIMAZOLE 10 MG TROCHE PO SCH ×5 (06:12→20:20)
[2019-04-10] MEDS: traMADol 50 MG TAB PO PRN ×2 (06:12→20:20)
[2019-04-10 06:36] LABS: INR 1.78
[2019-04-10 07:30] VITALS: BP 115/70
[2019-04-10] MEDS ORDERED: WARFARIN SOD 5 MG TAB PO SCH (09:00)
--- NOTE | 2019-04-10 09:03 | NUR ---
Physical Therapy Impression Pt reports that she feels "better" today, agreeable to therapy session. PT instruction for quad set, with tactile stimulation in order to facilitate quad contraction. AAROM completed with heel slides with end range flexion hold. PT instruction for SAQ and SLR, with pt requiring Mukul -- pt unable to actively lift LE without assistance. PT encouraged pt to work on supine ther ex later today in order to improve quad control, pt verbalized understanding. SBA for transfers and ambulation x125' with RW, pt with improved tolerance to ambulation distance and increased gait speed. Pt unable to verbalixe goals needed to achieve prior to d/c home, PT encouraged pt to consider this prior to care conference. Physical Therapy Goals 1. Fernandez bed mobility 2. Fernandez sit to stand transfer with use of least restrictive device 3. Fernandez ambulation of at least 150 ft with use of least restrictive device 4. Fernandez ability to ascend/descend 1 stair 5. Independent use of CPM machine. 6. Improve gait speed to 0.2m/s Patient's Goals
[2019-04-10] MEDS: ESCITALOPRAM OXALATE 10 MG TAB PO SCH (09:42)
[2019-04-10] MEDS: metFORMIN HCL XR 500 MG TABCR PO SCH ×2 (09:42→20:20)
[2019-04-10] MEDS: OFLOXACIN 0.3% OP SOLN 5ML BTL OU SCH ×4 (09:43→20:20)
--- NOTE | 2019-04-10 09:50 | NUR ---
Occupational Therapy Impression Mod (I) supine to sit with HOB raised. SBA ambulation with RW x70ft, x50ft. Independent shower seated. Independent UB dressing. Mod (I) LB dressing. Pt progressing well towards OT goals. Reports improved pain this date. Occupational Therapy Goals 1. Patient will be I with UB dressing 2. Patient will be I with LB dressing 3. Patient will be I with toileting 4. Patient will be I with grooming and hygiene at sinkfront Patient's Goal
[2019-04-10] MEDS: WARFARIN SOD 7.5 MG TAB PO SCH (11:08)
[2019-04-10] MEDS: ENOXAPARIN 100 MG/ML SYR SC SCH ×2 (11:09→20:21)
[2019-04-10 17:10] VITALS: BP 119/67
[2019-04-10] MEDS: SIMVASTATIN 20 MG TAB PO SCH (20:20)
[2019-04-11] MEDS: ACETAMINOPHEN 500 MG TAB PO SCH ×4 (02:59→20:38)
[2019-04-11] MEDS: CLOTRIMAZOLE 10 MG TROCHE PO SCH ×5 (05:38→20:38)
[2019-04-11] MEDS: traMADol 50 MG TAB PO PRN (05:38)
[2019-04-11 07:00] LABS: PLATELET COUNT, AUTOMATED 343 K/uL (150-450)
[2019-04-11 07:09] LABS: INR 1.94
[2019-04-11 07:36] VITALS: BP 105/63
[2019-04-11] MEDS ORDERED: WARFARIN SOD 7.5 MG TAB PO SCH (09:00)
[2019-04-11] MEDS: metFORMIN HCL XR 500 MG TABCR PO SCH ×2 (09:44→20:38)
[2019-04-11] MEDS: ESCITALOPRAM OXALATE 10 MG TAB PO SCH (09:44)
[2019-04-11] MEDS: WARFARIN SOD 7.5 MG TAB PO SCH (09:45)
[2019-04-11] MEDS: MAGNESIUM HYDROXIDE* 30ML UDCP PO PRN (09:45)
[2019-04-11] MEDS: OFLOXACIN 0.3% OP SOLN 5ML BTL OU SCH ×4 (09:45→20:39)
[2019-04-11] MEDS: ENOXAPARIN 100 MG/ML SYR SC SCH (09:46)
--- NOTE | 2019-04-11 11:39 | NUR ---
Occupational Therapy Impression Modified Independent supine to sit. Independent toileting. Independent grooming standing sinkfront. Modified Independent bathtub transfer with shower chair and leg deputy city clerk. Pt educated on where to obtain recommended equipment (shower chair). Pt with no further questions for OT at this time. Plan for final visit tomorrow to address further needs and discharge home Tuesday with HH services. Occupational Therapy Goals 1. Patient will be I with UB dressing 2. Patient will be I with LB dressing 3. Patient will be I with toileting 4. Patient will be I with grooming and hygiene at sinkfront Patient's Goal
--- NOTE | 2019-04-11 14:40 | NUR ---
Physical Therapy Impression Pt nearing PT goals with stair training completed today at SBA level using RW to ascend/descend 2 platform steps. Plan for car transfer tomorrow at 9:15 to address Pt's concerns of getting into/out of the car. Also plan to re-evaluate gait speed prior to DC. Physical Therapy Goals 1. Fernandez bed mobility 2. Fernandez sit to stand transfer with use of least restrictive device 3. Fernandez ambulation of at least 150 ft with use of least restrictive device 4. Fernandez ability to ascend/descend 1 stair 5. Independent use of CPM machine. 6. Improve gait speed to 0.2m/s Patient's Goals
--- NOTE | 2019-04-11 15:25 | Hospitalist Progress Note ---
Physical Exam Vital Signs Date Time Temp Pulse Resp B/P (MAP) Pulse Ox O2 Delivery O2 Flow Rate FiO2 04/11/19 09:51 92 04/11/19 08:00 Room Air 04/11/19 07:36 98.0 61 15 105/63 (77) 04/11/19 05:38 3.0 Intake and Output 04/11/19 07:02 Intake Total 1500 ml Balance 1500 ml Intake Oral 1500 ml # Voids 5 # Bowel Movements 0 Result Diagram: 04/11/1960404/11/19604 Assessment and Plan Problems: (1) Status post right knee replacement Status: Acute Assessment & Plan: She has history of DVT. Warfarin is therapeutic after Lovenox bridging. (2) DVT (deep venous thrombosis) Status: Chronic Assessment & Plan: On warfarin chronically. See above plan. (3) Type 2 diabetes mellitus Status: Chronic Assessment & Plan: Continue chronic Metformin. She was placed on SS insulin #2, AC/ HS blood glucose monitoring and ADA diet. Glucoses are controlled. (4) Depression Status: Chronic Assessment & Plan: Continue chronic Lexapro. (5) Essential hypertension Status: Chronic Assessment & Plan: She is on chronic treatment with Lasix, but has not been restarted because of normal BP. Follow BP and restart when needed. (6) CVA (cerebral infarction) Status: Chronic Assessment & Plan: In 2008. Left leg deficit. Could prolong rehab from knee replacement. Time Spent on Plan of Care: < 30 min GAB KERR MD Apr 11, 2019 15:25
[2019-04-11] MEDS ORDERED: SUMAtriptan SUCC 25MG TAB PO ONE (15:30)
[2019-04-11] MEDS ORDERED: WARF-1 PO (15:30)
--- NOTE | 2019-04-11 15:57 | Hospitalist Depart ---
Discharge Summary Reason for Hosp/Final Diag: (1) Status post right knee replacement Status: Acute Hospital Course & Plan: She has history of DVT. Warfarin was therapeutic after Lovenox bridging. She will be discharged on warfarin 5mg 2 days a week and 7.5mg the rest of the week. (2) DVT (deep venous thrombosis) Status: Chronic Hospital Course & Plan: On warfarin chronically. See above plan. (3) Type 2 diabetes mellitus Status: Chronic Hospital Course & Plan: She was continued on chronic Metformin. She was placed on SS insulin #2, AC/ HS blood glucose monitoring and ADA diet. Glucoses were well controlled. (4) Depression Status: Chronic Hospital Course & Plan: She was continued on chronic Lexapro. (5) Essential hypertension Status: Chronic Hospital Course & Plan: She is on chronic treatment with Lasix, but it was not restarted because of normal BP during her stay. She will resume it at home. (6) CVA (cerebral infarction) Status: Chronic Hospital Course & Plan: In 2008. Left leg deficit. This may have prolonged rehab from knee replacement. Departure Weight (Pounds): 255 Result Diagram: 04/11/1960404/11/19604 Condition: Improved Discharge: Home, Home Health PT/OT Follow Up For: PT For Strengthening Home Health RN Follow Up For: Nursing Assessment, Other Time Spent: < 30 min Discharge Instructions Home Meds Active Scripts Warfarin Sodium (COUMADIN) 5 Mg Tablet, 0 PO DIRECTED, #45 TAB Take 5mg po daily on and Tuesday. Take 7.5mg po daily on Tuesday, Tuesday, Tuesday, Tuesday and Tuesday. Prov:GAB KERR MD 04/11/19 Metformin Hcl (METFORMIN HCL ER) 500 Mg Tabcr, 1 TAB PO BID, #60 TAB 5 Refills Prov:AMBREEN PRASAD APRN [employer] 03/20/19 Escitalopram Oxalate (LEXAPRO) 10 Mg Tab, 3 TAB PO QDAY, #90 TAB 5 Refills Prov:IRIS LUONG MD 11/23/18 Trazodone Hcl (TRAZODONE HCL) 100 Mg Tablet, 2 TAB PO QHS, #60 TAB 5 Refills Prov:IRIS LUONG MD 11/23/18 Sumatriptan Succinate (SUMATRIPTAN SUCCINATE) 100 Mg Tablet, 0.5-1 TAB PO ONCE PRN for MIGRAINE, #6 TAB 5 Refills Prov:IRIS LUNOG MD 11/23/18 Furosemide (FUROSEMIDE) 40 Mg Tablet, 1 TAB PO DAILY, #30 TAB 5 Refills Prov:IRIS LUONG MD 11/02/18 Potassium Chloride (POTASSIUM CHLORIDE) 20 Meq Tab.er.prt, 1 TAB PO BID, #60 TAB 11 Refills Prov:IRIS LUONG MD 09/05/18 One Touch Ultra Test Strips (ONE TOUCH ULTRA TEST STRIPS) 1 Each Strip, 50 EACH MC Q30D, #100 STRIP 5 Refills use to test BS twice daily Prov:IRIS LUONG MD 06/06/18 Simvastatin (SIMVASTATIN) 20 Mg Tablet, 1 TAB PO HS, #30 TAB 12 Refills Prov:IRIS LUONG MD 05/22/18 Blood-Glucose Meter (BLOOD-GLUCOSE METER) 1 Each Kit, KIT MC ONCE, #1 11 Refills One touch Ultra Prov:IRIS LUONG MD 04/06/18 Lancets (LANCETS ULTRA THIN) 1 Each Each, EACH MC Q30D, #100 12 Refills Prov:IRIS LUOGN MD 05/11/17 Reported Medications Oxycodone Hcl (OXYCODONE HCL) 5 Mg Tablet, 1 TAB PO Q4-6H PRN for PAIN, #15 04/06/19 Oxygen (OXYGEN) Inha, 3 L INH HS with C-PAP 10/25/18 Cpap (CPAP HOME) Inha, HS 9 cm H2O pressure, with oxygen 3 liters 01/07/16 Discontinued Reported Medications Tramadol Hcl (TRAMADOL HCL) 50 Mg Tablet, 1-2 TAB PO Q6H PRN for PAIN, TAB 04/06/19 Warfarin Sodium (WARFARIN SODIUM) 5 Mg Tablet, 7.5 MG PO 3XW, TAB Tuesday, Tuesday, Tuesday04/02/19 Warfarin Sodium (WARFARIN SODIUM) 5 Mg Tablet, 5 MG PO DAILY, TAB Tuesday, Tuesday, , Tuesday04/02/19 Follow up Referrals: Internal Medicine - In One Week @ [facility]-Primary with ELIDIA Barnes Diet: Diabetic Activity: As Tolerated Copies to: AMBREEN PRASAD APRN-[place] ; Venous Thromboembolism Antithrombotics Is Pt On Any Antithrombotics?: Yes [id number] Certification Face to Face Home Health Certification Patient's Primary Care Provider: mAbreen Prasad Aprn Institutional Provider conducted the [id number] encounter. Electronic Undersigning Physician Certifies Home Health. I certify that the patient has been under my care and that I had a [id number] encounter that meets the physician [id number] encounter requirements with this patient. This patient is home-bound due to safety issues and continues to require assistance with ADL's. I certify that based on my findings, that Nursing, Aides and the following Home Health services are medically necessary: PT and OT Medical Necessity: Rehab Date Face to Face Conducted: Apr 11, 2019 GAB KERR MD Apr 11, 2019 15:56
[2019-04-11 18:40] VITALS: BP 131/67
[2019-04-11 19:20] VITALS: BP 131/74
[2019-04-11] MEDS: SIMVASTATIN 20 MG TAB PO SCH (20:39)
[2019-04-12] MEDS: ACETAMINOPHEN 500 MG TAB PO SCH ×5 (03:30→20:39)
[2019-04-12] MEDS: CLOTRIMAZOLE 10 MG TROCHE PO SCH (05:50)
[2019-04-12 06:12] LABS: INR 2.04
[2019-04-12] MEDS: ESCITALOPRAM OXALATE 10 MG TAB PO SCH (08:39)
[2019-04-12] MEDS: metFORMIN HCL XR 500 MG TABCR PO SCH ×2 (08:39→20:39)
[2019-04-12] MEDS: OFLOXACIN 0.3% OP SOLN 5ML BTL OU SCH ×4 (08:40→20:40)
[2019-04-12] MEDS ORDERED: WARFARIN SOD 5 MG TAB PO SCH (09:00)
[2019-04-12 09:07] VITALS: BP 104/65
--- NOTE | 2019-04-12 09:17 | NUR ---
Physical Therapy Impression Pt has met PT goals and is safe to d.c home from a mobility stand point when medically appropriate. Pt improved gait speed to 0.23 m/sec, indicating an improvement in function. PT instruction for car xfer with family present, pt completed with Fernandez/SBA. No further PT visits planned, pt is safe to be I) in room with assist from nursing as needed. Rec C upon d/c. Physical Therapy Goals 1. Fernandez bed mobility 2. Fernandez sit to stand transfer with use of least restrictive device 3. Fernandez ambulation of at least 150 ft with use of least restrictive device 4. Fernandez ability to ascend/descend 1 stair 5. Independent use of CPM machine. 6. Improve gait speed to 0.2m/s Patient's Goals
--- NOTE | 2019-04-12 10:47 | NUR ---
5-day and DC MDS completed with pt. C: 185, D: 05, E: no concerns, Q: referral made for [facility] [place]. No other needs reported, SW will continue to follow for needs.
--- NOTE | 2019-04-12 14:07 | NUR ---
OCCUPATIONAL THERAPY Dressing Assistance: Mod (I) Dressing Aid Required: Sock Aid-educated for where to obtain Bathing Assistance: Modified Independent Bathing Equipment: Shower Chair, Leg water vessel captain Home Assessment: Not Completed Feeding Assistance: Independent Feeding Specialized Equipment: None Toilet Use: Independent Verbalizes Needs: Yes Understands Precautions: Yes Cooperative: Yes Family Teaching: No Occupational Therapy Comment:
--- NOTE | 2019-04-12 14:10 | OT ECF NOTE ---
Type of Note: Discharge Note Primary Medical Diagnosis: Right TKA Occupational Therapy Evaluation Date: 04/06/19 SUBJECTIVE: Prior Hospitalization: independent Prior Level of Function: independent Prior Living Status: Single level house Community Services: Independent Home Accessibility: Tub/shower combination Equipment Owned: Front wheeled walker Medical Complications/Past Medical History: CVA Psychosocial Support: ex and son at home Pain Scale (0-10): 0 Hand Dominance: right OBJECTIVE: ROM: Both upper extremities WFL Functional Transfer: Assistive Device: Front wheeled walker Transfer Ability: Modified Independent ADL: Upper body dressing: Assistive device: None Upper body dressing ability: Independent Lower body dressing: Assistive device: Stripper Cutter Machine and Sock aid Lower body dressing ability: Modified Independent Toileting: Assistive device: None Toileting ability: Independent Grooming/hygiene: Assistive device: Standing Grooming ability: Independent Bathing: Assistive device: Shower chair Bathing ability: Modified Independent ASSESSMENT: Patient presented with decreased independence with self care perform post knee surgery. Patient was independent with all self cares and IADLs prior. Patient does have family support at home.Patient has met all skilled OT goals and reports no further questions/concerns/needs to address with OT at this time. Problem List/Current Limitations: Generalized weakness Short Term Goals: 1. Patient will be I with UB dressing GOAL MET 2. Patient will be I with LB dressing GOAL MET 3. Patient will be I with toileting GOAL MET 4. Patient will be I with grooming and hygiene standing at sinkfront GOAL MET Rental Car Deliverer Goals: return home Patient Goals: return home Rehabilitation Prognosis: Good Barriers to Discharge: none identified PLAN: The patient will discharge home with services and assist from family as needed for ADLs/IADLs Thank you for this referral. If you have any questions, concerns, or comments about this report or plan, please contact me at . Katelin Heard MS, OTR/L Occupational Therapist [place]
[2019-04-12 14:55] VITALS: BP 116/69
--- NOTE | 2019-04-12 16:20 | PT ECF NOTE ---
Type of Note: Discharge Summary Primary Medical Diagnosis: R TKA Physical Therapy Discharge Date: 04/12/2019 SUBJECTIVE: Prior Hospitalization: 04/03/2019-04/06/2019 for R TKA Prior Level of Function: Independent with ADLs Prior Living Status: Single level house, Living with family Community Services: Independent, No known needs Home Accessibility: One step into home Equipment Owned: Front wheeled walker Medical Complications/Past Medical History: See EMR Pain: 10 OBJECTIVE: Strength: Right Lower Extremity: Hip flexion: 3/5 Left Lower Extremity: DF: 5/5 Knee extension: 4/5 Hip flexion: 3+/5 ROM: R) knee, in sitting : 3-72 degrees Bed Mobility: Fernandez Transfers: Fernandez with RW Gait: 320' SBA with RW Stairs: 2 steps with SBA 10 meter walk test (0.6m/second cannot function independently): 0.23 m/second ASSESSMENT: Pt has met PT goals and is safe to d.c home from a mobility stand point when medically appropriate. Pt improved gait speed to 0.23 m/sec, indicating an improvement in function. PT instruction for car xfer with family present, pt completed with Fernandez/SBA. No further PT visits planned, pt is safe to be I) in room with assist from nursing as needed. Rec HHC upon d/c. Problem List/Current Limitations: Pain, Decreased WB, Decreased activity katt, Decreased strength, Decreased ROM, Decreased balance, Generalized weakness Short Term Goals: (met) 1. Fernandez bed mobility 2. Fernandez sit to stand transfer with use of least restrictive device 3. Fernandez ambulation of at least 150 ft with use of least restrictive device 4. Fernandez ability to ascend/descend 1 stair 5. Independent use of CPM machine. 6. Improve gait speed to 0.2m/s PLAN: The patient will discharge home with [facility] services and assist from family/friends as needed. Thank you for this referral. If you have any questions, concerns, or comments about this report or plan, please contact me at . Molly Centeno, PT, DPT MTDD
--- NOTE | 2019-04-12 16:32 | NUR ---
Pt. participated in new activity being offered by participating in postcard exchange through website [email or web address]. Pt. is sending a card to [employer]. Pt. gave address to send card due to discharge before receiving correspondence back.
[2019-04-12] MEDS: SIMVASTATIN 20 MG TAB PO SCH (20:39)
[2019-04-13] MEDS: ACETAMINOPHEN 500 MG TAB PO SCH ×2 (02:47→08:51)
[2019-04-13 06:17] LABS: INR 1.61
[2019-04-13 07:07] VITALS: BP 118/68
[2019-04-13] MEDS: OFLOXACIN 0.3% OP SOLN 5ML BTL OU SCH (08:47)
[2019-04-13] MEDS: ESCITALOPRAM OXALATE 10 MG TAB PO SCH (08:47)
[2019-04-13] MEDS: metFORMIN HCL XR 500 MG TABCR PO SCH (08:47)
[2019-04-13] MEDS: WARFARIN SOD 7.5 MG TAB PO SCH (08:51)
--- NOTE | 2019-04-16 08:42 | NUR ---
Categorical determination paperwork faxed to [facility] at [phone]. [id number] never completed by state, sent what information was available.
== END 2019-04-13 10:15 | disposition home health service (06) | DRG 560 ==
LOC: SWB 10:15
PROVIDERS: ADMIT Internal Medicine; ATTEND Internal Medicine
DX: Z47.1 Aftercare following joint replacement surgery (principal); I82.509 Chronic embolism and thrombosis of unspecified deep veins of unspecified lower extremity; Z79.01 Long term (current) use of anticoagulants; E11.9 Type 2 diabetes mellitus without complications; Z79.84 Long term (current) use of oral hypoglycemic drugs; F32.9 Major depressive disorder, single episode, unspecified; I69.344 Monoplegia of lower limb following cerebral infarction affecting left non-dominant side
CPT/HCPCS: 36415; 36416; 81001; 82040; 82247; 82310; 82374; 82435; 82565; 82947; 82948; 84075; 84132; 84155; 84295; 84450; 84460; 84520; 85014; 85018; 85025; 85610; 87088; 97161; 97165; J1650

== ENCOUNTER → 2019-04-23 | Outpatient (CLI) | payer MEDICAID ==
[2019-04-03 07:58] VITALS: BMI 37.7
[~2019-04-23] MED LIST changes: +WARF-1 PO
[2019-04-23 12:05] LABS: PLATELET COUNT, AUTOMATED 425 K/uL (150-450)
== END ==
LOC: LAB 11:44
PROVIDERS: ATTEND Nurse Practitioner Family
DX: D64.9 Anemia, unspecified (principal)
CPT/HCPCS: 36415; 85025